=== PATIENT | male | born 1965 | race Caucasian/White ===

== ENCOUNTER 2022-02-18 10:24 | Outpatient (RCR) | payer OTHER, SELFPAY ==
[2022-02-18] MEDS: SODIUM CHLORIDE 0.9 % (FLUSH) 10 ML SYRINGE IVF (11:05)
[2022-02-18 11:15] LABS: Creatinine* 0.9 mg/dL (0.5-1.5); Est. Creatinine Clearance* 86.56; Estimated Glomerular Filt Rate 99 ml/min
== END 2022-08-17 23:59 | disposition home or self-care (01) ==
LOC: CCIC 10:24
PROVIDERS: PCP Family Medicine; Referring Provider Family Medicine; Visit Provider Clinical Nurse Specialist
DX: Z45.2 Encounter for adjustment and management of vascular access device (principal)
CPT/HCPCS: 36415; 82565; 99211

== ENCOUNTER 2024-12-27 12:00 | Emergency (ER) | payer BC, SELFPAY ==
--- OUTSIDE RECORDS SUMMARY | 2024-11-12 08:45 | XMS_ITS | Encounter Summary ---
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 [address] [place] [phone] Phone: tel: fax: [facility] Referral ID Status Reason Start Date Expiration Date Visits Re quested Visits Authorized [id number] Closed 10/26/2024 01/19/2026 15 15 Encounter Details Date Type Department Care Team (Latest Contact Info) Description 11/12/2024 8:45 AM CDT - 11/12/2024 11:59 PM CDT Hospital Encounter Department of Radiation Oncology in [address] [phone] Gio Kiran M.D. 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 07/18/2021 levothyroxine 50 mcg tablet Take 50 mcg by mouth daily. 08/06/2024 pregabalin (LYRICA) 50 mg capsule Take 100 mg by mouth 2 (two) times a day. 02/27/2022 dexAMETHasone (DECADRON) 4 mg tablet Take 8 mg by mouth. Takes two in the morning for the first three days after chemo 01/31/2022 fentaNYL (DURAGESIC) 50 mcg/hr patch Place 1 patch on the skin every third day. 02/06/2022 lisinopriL (PRINIVIL,ZESTRI L) 10 mg tablet Take 10 mg by mouth daily. 07/18/2021 naloxone (NARCAN) 4 mg/actuation nasal spray Administer 1 spray (4 mg total) into one nostril as needed for reversal. Use 1 spray in 1 nostril. Repeat with second device in other nostril after 2-3 minutes if no or minimal response. 2 each 02/18/2022 OLANZapine (ZyPREXA) 5 mg tablet Take 1 tablet (5 mg) by mouth once daily in the evening for 4 days. Start taking the evening of chemotherapy and continue for 3 days after. 01/31/2022 ondansetron (ZOFRAN) 8 mg tablet Take 8 mg by mouth every 8 (eight) hours as needed. 01/31/2022 oxyCODONE (ROXICODONE) 10 mg IR tablet Take 20 mg by mouth every 6 (six) hours as needed. 02/07/2022 prochlorperazine (COMPAZINE) 10 mg tablet Take 10 mg by mouth every 6 (six) hours as needed. 01/31/2022 SUMAtriptan (IMITREX) 25 mg tablet Take by mouth as needed. 03/28/2021 documented as of this encounter Plan of Treatment Upcoming Encounters Date Type Department Care Team (Late st Contact Info) Description 12/28/2024 10:30 AM CDT Appointment Department of Radiation Oncology in [address] [phone] Gio Kiran M.D. [address] [place] [address] 12/29/2024 10:30 AM CDT Appointment Department of Radiation Oncology in [place], [place] [address] [place] [address] Gio Kiran M.D. [address] [place] [address] 12/30/2024 10:15 AM CDT Appointment Department of Radiation Oncology in [place], [place] [address] [place] [phone] Gio Kiran M.D. [facility] [place] [address] 12/30/2024 10:30 AM CDT Appointment Department of Radiation Oncology in [place], [place] [address] [place] [address] Gio Kiran M.D. [address] [place] [address] 12/31/2024 10:30 AM CDT Appointment Department of Radiation Oncology in [address] [address] Gio Kiran M.D. [address] [place] [address] 01/03/2025 10:15 AM CDT Appointment Department of Radiation Oncology in [place], [place] [address] [place] [address] Gio Kiran M.D. [address] [place] [address] 01/04/2025 10:15 AM CDT Appointment Department of Radiation Oncology in [address] [address] Goi Kiran M.D. [facility] [place] [address] 01/05/2025 10:15 AM CDT Appointment Department of Radiation Oncology in [address] [address] Gio Kiran M.D. [address] [place] [phone] 02/28/2025 1:00 PM ELECTRIC LIFT TRUCK DRIVER Appointment Department of Radiation Oncology in [address] [address] Gio Kiran M.D. [address] [place] [phone] documented as of this encounter Visit Diagnoses Not on filedocumented in this encounter
--- OUTSIDE RECORDS SUMMARY | 2024-11-15 08:20 | XMS_ITS | Encounter Summary ---
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 [address] [place] [phone] Phone: tel: fax: [facility] Referral ID Status Reason Start Date Expiration Date Visits Re quested Visits Authorized [id number] Closed 10/26/2024 01/19/2026 15 15 Encounter Details Date Type Department Care Team (Latest Contact Info) Description 11/15/2024 8:20 AM CDT - 11/15/2024 11:59 PM CDT Hospital Encounter Department of Radiation Oncology in [address] [phone] Gio Kiran M.D. 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 [address] [place] [address] 12/29/2024 10:30 AM CDT Appointment Department of Radiation Oncology in [place], [place] [address] [place] [address] Gio Kiran M.D. [address] [place] [address] 12/30/2024 10:15 AM CDT Appointment Department of Radiation Oncology in [place], [place] [address] [place] [phone] Gio Kiran M.D. [facility] [place] [address] 12/30/2024 10:30 AM CDT Appointment Department of Radiation Oncology in [place], [place] [address] [place] [address] Gio Kiran M.D. [address] [place] [address] 12/31/2024 10:30 AM CDT Appointment Department of Radiation Oncology in [address] [address] Gio Kiran M.D. [address] [place] [address] 01/03/2025 10:15 AM CDT Appointment Department of Radiation Oncology in [place], [place] [address] [place] [address] Gio Kiran M.D. [address] [place] [address] 01/04/2025 10:15 AM CDT Appointment Department of Radiation Oncology in [address] [address] Gio Kiran M.D. [facility] [place] [address] 01/05/2025 10:15 AM CDT Appointment Department of Radiation Oncology in [address] [address] Gio Kiran M.D. [address] [place] [phone] 02/28/2025 1:00 PM CENTER MEDICAL AND LAB DIRECTOR Appointment Department of Radiation Oncology in [address] [address] Gio Kiran M.D. [address] [place] [phone] documented as of this encounter Visit Diagnoses Not on filedocumented in this encounter
--- OUTSIDE RECORDS SUMMARY | 2024-11-16 08:25 | XMS_ITS | Encounter Summary ---
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 [address] [place] [phone] Phone: tel: fax: [facility] Referral ID Status Reason Start Date Expiration Date Visits Re quested Visits Authorized [id number] Closed 10/26/2024 01/19/2026 15 15 Encounter Details Date Type Department Care Team (Latest Contact Info) Description 11/16/2024 8:25 AM CDT - 11/16/2024 11:59 PM CDT Hospital Encounter Department of Radiation Oncology in [address] [phone] Gio Kiran M.D. 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 [address] [place] [address] 12/29/2024 10:30 AM CDT Appointment Department of Radiation Oncology in [place], [place] [address] [place] [address] Gio Kiran M.D. [address] [place] [address] 12/30/2024 10:15 AM CDT Appointment Department of Radiation Oncology in [place], [place] [address] [place] [phone] Gio Kiran M.D. [facility] [place] [address] 12/30/2024 10:30 AM CDT Appointment Department of Radiation Oncology in [place], [place] [address] [place] [address] Gio Kiran M.D. [address] [place] [address] 12/31/2024 10:30 AM CDT Appointment Department of Radiation Oncology in [address] [address] Gio Kiran M.D. [address] [place] [address] 01/03/2025 10:15 AM CDT Appointment Department of Radiation Oncology in [place], [place] [address] [place] [address] Gio Kiran M.D. [address] [place] [address] 01/04/2025 10:15 AM CDT Appointment Department of Radiation Oncology in [address] [address] Gio Kiran M.D. [facility] [place] [address] 01/05/2025 10:15 AM CDT Appointment Department of Radiation Oncology in [address] [address] Gio Kiran M.D. [address] [place] [phone] 02/28/2025 1:00 PM THEATRE MANAGER Appointment Department of Radiation Oncology in [address] [address] Gio Kiran M.D. [address] [place] [phone] documented as of this encounter Visit Diagnoses Not on filedocumented in this encounter
--- OUTSIDE RECORDS SUMMARY | 2024-11-17 08:03 | XMS_ITS | Encounter Summary ---
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 [address] [place] [address] Phone: tel: fax: [facility] Region Referral ID Status Reason Start Date Expiration Date V isits Requested Visits Authorized [id number] Authorized 10/14/2024 01/14/2026 10 10 Encounter Details Date Type Department Care Team (Latest Contact Info) Description 11/17/2024 8:03 AM CDT - 11/23/2024 9:14 PM CDT Hospital Encounter Department of Radiation Oncology in [place], [place] [address] [place] [phone] Leif Lozada M.D. 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 03/28/2021 documented as of this encounter Progress Notes * Leif Lozada M.D. - 11/17/2024 8:45 AM CDT SUBJECTIVE REASON FOR VISIT Evaluation for side effects while receiving radiation treatment for 1. 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 ([id number]) HISTORY OF PRESENT ILLNESS Nick Ferguson is a 59 y.o. 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 He is receiving re-irradiation to his left upper lung. Treatment Course: [id number] Plan ID Fractions Dose / Fraction (cGy) Dose Treated (cGy) Dose Planned (cGy) First Treatment Last Treatment Elapsed Days [id number] 400 5200 6000 11/01/2024 11/17/2024 16 Course Summary 11/01/2024 11/17/2024 16 The patient was seen and examined today with Dr. Lozada. The patient reports to be feeling well overall. He denies changes to breathing or cough. He denies chest discomfort or pain with swallowing. He denies changes to his pain in the left axilla. PATIENT REPORTED SYMPTOM SCREEN FATIGUE (Scale: 0 = no fatigue; 10 = worst fatigue you can imagine): 3 PAIN (Scale: 0 = no pain; 10 = worst pain you can imagine): 5-left axillary pain OVERALL QUALITY OF LIFE (Scale: 0 = as bad as can be; 10 = as good as can be): 8 OBJECTIVE BP 119/76 (BP Location: Right arm, Patient Position: Sitting, Cuff Size: Regular) Pulse 71 Temp36.4 ??C (Temporal) Wt 77.8 kg PHYSICAL EXAM General: Alert and oriented in no apparent distress. ASSESSMENT / PLAN #1 Limited stage/stage IIIA (cT4, cN0, cM0) left apical small cell lung cancer with T1/T2 neural foramen invasion #2 Concurrent twice daily chemoradiotherapy initiated with cycle 2 of cisplatin and etoposide; completed March 21, 2022 #3 Biopsy-proven recurrent disease in the left upper lung noted September 2023; re- initiated chemo/immunotherapy #4 Progressive disease noted March 2024, switch in systemic therapy #5 Continued progression through 2 additional lines of systemic therapy March 2024 - September 2024 #6 Radiation to left upper lung initiated on November 01, 2024; anticipated completion on November 19, 2024 The patient is tolerating radiation treatment well overall with no acute side effects. Dr. Lozadawas in for any questions or concerns. He will continue with radiation treatment as planned. He can contact our care team with any questions or concerns. Toxicities reviewed with Dr. Lozada. FOLLOW-UP We will plan for follow up with CT chest with IV contrast and see Dr. Kiran in 3 months. Signed by: Renetta Watters R.N. 11/17/2024 8:35 AM CDT I saw and evaluated the patient and participated in the leonardo portions of the service. I reviewed thedocumentation of Renetta Watters R.N. and agree with the findings and plan. The patient appears well on exam. He is tolerating treatment well without apparent side effects. We discussed the signs andsymptoms of radiation pneumonitis for which he is at risk from 6 weeks from now until 6 months fromnow. The patient agreed to contact us if he experiences any of these. He will finish treatment as planned on Friday. He will follow up with Dr. Kiran in 3 months. Our team is available to him at any time in the interim with issues or concerns. He verbalized satisfaction with this plan. Signed by: Leif Lozada M.D. 11/23/2024 9:13 PM CDT [facility] [address] [place] [address] documented in this encounter Miscellaneous Notes * Addendum Note - Mily Stein - 11/17/2024 8:45 AM CDTEncounter addended by: Mily Stein on: 11/24/2024 7:09 AM Actions taken: Letter saved documented in this encounter Plan of Treatment Upcoming Encounters Date Type Department Care Team (Late st Contact Info) Description 12/28/2024 10:30 AM CDT Appointment Department of Radiation Oncology in [address] [address] Gio Kiran M.D. [address] [place] [phone] 12/29/2024 10:30 AM CDT Appointment Department of Radiation Oncology in [address] [address] Gio Kiran M.D. [address] [place] [phone] 12/30/2024 10:15 AM CDT Appointment Department of Radiation Oncology in [address] [address] Gio Kiran M.D. [address] [place] [phone] 12/30/2024 10:30 AM CDT Appointment Department of Radiation Oncology in [address] [address] Gio Kiran M.D. [facility] [place] [address] 12/31/2024 10:30 AM CDT Appointment Department of Radiation Oncology in [address] [address] Gio Kiran M.D. [facility] [place] [address] 01/03/2025 10:15 AM CDT Appointment Department of Radiation Oncology in [address] [address] Gio Kiran M.D. [address] [place] [phone] 01/04/2025 10:15 AM CDT Appointment Department of Radiation Oncology in [address] [address] Gio Kiran M.D. [address] [place] [phone] 01/05/2025 10:15 AM CDT Appointment Department of Radiation Oncology in [address] [address] Gio Kiran M.D. [address] [place] [phone] 02/28/2025 1:00 PM REAL ESTATE OPERATIONS MANAGER Appointment Department of Radiation Oncology in [address] [address] Gio Kiran M.D. 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
--- OUTSIDE RECORDS SUMMARY | 2024-11-17 08:03 | XMS_ITS | Encounter Summary ---
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 [address] [place] [phone] Phone: tel: fax: [facility] Referral ID Status Reason Start Date Expiration Date Visits Re quested Visits Authorized [id number] Closed 10/26/2024 01/19/2026 15 15 Encounter Details Date Type Department Care Team (Latest Contact Info) Description 11/17/2024 8:03 AM CDT - 11/17/2024 11:59 PM CDT Hospital Encounter Department of Radiation Oncology in [address] [phone] Gio Kiran M.D. [address] [place] [phone] Discharge Disposition: Home or Self Care Social History Tobacco Use Types Packs/Day Years Used Date Smoking Tobacco: Former Cigarettes 1 40 Q uit: 09/2023 Smokeless Tobacco: Never Alcohol Use Standard Drinks/Week Comments Yes 6 (1 standard drink = 0.6 oz pur e alcohol) Sex and Gender Information Value Date Recorded Sex Assigned at Not on file Legal Sex Male 11:53 AM CHART WRITER Gender Identity Not on file Sexual Orientation [...] CDT Appointment Department of Radiation Oncology in [address] [phone] Gio Kiran M.D. [address] [place] [address] 12/29/2024 10:30 AM CDT Appointment Department of Radiation Oncology in [place], [place] [address] [place] [address] Gio Kiran M.D. [address] [place] [address] 12/30/2024 10:15 AM CDT Appointment Department of Radiation Oncology in [place], [place] [address] [place] [phone] Gio Kiran M.D. [facility] [place] [address] 12/30/2024 10:30 AM CDT Appointment Department of Radiation Oncology in [place], [place] [address] [place] [address] Gio Kiran M.D. [address] [place] [address] 12/31/2024 10:30 AM CDT Appointment Department of Radiation Oncology in [address] [address] Gio Kiran M.D. [address] [place] [address] 01/03/2025 10:15 AM CDT Appointment Department of Radiation Oncology in [place], [place] [address] [place] [address] Gio Kiran M.D. [address] [place] [address] 01/04/2025 10:15 AM CDT Appointment Department of Radiation Oncology in [address] [address] Gio Kiran M.D. [facility] [place] [address] 01/05/2025 10:15 AM CDT Appointment Department of Radiation Oncology in [address] [address] Gio Kiran M.D. [address] [place] [phone] 02/28/2025 1:00 PM CHART WRITER Appointment Department of Radiation Oncology in [address] [address] Gio Kiran M.D. [address] [place] [phone] documented as of this encounter Visit Diagnoses Not on filedocumented in this encounter
--- OUTSIDE RECORDS SUMMARY | 2024-11-18 08:07 | XMS_ITS | Encounter Summary ---
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 [address] [place] [phone] Phone: tel: fax: [facility] Referral ID Status Reason Start Date Expiration Date Visits Re quested Visits Authorized [id number] Closed 10/26/2024 01/19/2026 15 15 Encounter Details Date Type Department Care Team (Latest Contact Info) Description 11/18/2024 8:07 AM CDT - 11/18/2024 11:59 PM CDT Hospital Encounter Department of Radiation Oncology in [address] [phone] Gio Kiran M.D. [address] [place] [phone] Discharge Disposition: Home or Self Care Social History Tobacco Use Types Packs/Day Years Used Date Smoking Tobacco: Former Cigarettes 1 40 Q uit: 09/2023 Smokeless Tobacco: Never Alcohol Use Standard Drinks/Week Comments Yes 6 (1 standard drink = 0.6 oz pur e alcohol) Sex and Gender Information Value Date Recorded Sex Assigned at Not on file Legal Sex Male 11:53 AM INSURANCE HEALTHCARE REPRESENTATIVE Gender Identity Not on file Sexual Orientation [...] CDT Appointment Department of Radiation Oncology in [address] [phone] Gio Kiran M.D. [address] [place] [address] 12/29/2024 10:30 AM CDT Appointment Department of Radiation Oncology in [place], [place] [address] [place] [address] Gio Kiran M.D. [address] [place] [address] 12/30/2024 10:15 AM CDT Appointment Department of Radiation Oncology in [place], [place] [address] [place] [phone] Gio Kiran M.D. [facility] [place] [address] 12/30/2024 10:30 AM CDT Appointment Department of Radiation Oncology in [place], [place] [address] [place] [address] Gio Kiran M.D. [address] [place] [address] 12/31/2024 10:30 AM CDT Appointment Department of Radiation Oncology in [address] [phone] Gio Kiran M.D. [address] [place] [address] 01/03/2025 10:15 AM CDT Appointment Department of Radiation Oncology in [place], [place] [address] [place] [address] Gio Kiran M.D. [address] [place] [address] 01/04/2025 10:15 AM CDT Appointment Department of Radiation Oncology in [address] [phone] Gio Kiran M.D. [facility] [place] [address] 01/05/2025 10:15 AM CDT Appointment Department of Radiation Oncology in [address] [phone] Gio Kiran M.D. [address] [place] [phone] 02/28/2025 1:00 PM INSURANCE HEALTHCARE REPRESENTATIVE Appointment Department of Radiation Oncology in [address] [address] Gio Kiran M.D. [address] [place] [phone] documented as of this encounter Visit Diagnoses Not on filedocumented in this encounter
--- OUTSIDE RECORDS SUMMARY | 2024-11-19 08:05 | XMS_ITS | Encounter Summary ---
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 [address] [place] [phone] Phone: tel: fax: [facility] Referral ID Status Reason Start Date Expiration Date Visits Re quested Visits Authorized [id number] Closed 10/26/2024 01/19/2026 15 15 Encounter Details Date Type Department Care Team (Latest Contact Info) Description 11/19/2024 8:05 AM CDT - 11/19/2024 11:59 PM CDT Hospital Encounter Department of Radiation Oncology in [address] [phone] Gio Kiran M.D. 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 [address] [place] [address] 12/29/2024 10:30 AM CDT Appointment Department of Radiation Oncology in [place], [place] [address] [place] [address] Gio Kiran M.D. [address] [place] [address] 12/30/2024 10:15 AM CDT Appointment Department of Radiation Oncology in [place], [place] [address] [place] [phone] Gio Kiran M.D. [facility] [place] [address] 12/30/2024 10:30 AM CDT Appointment Department of Radiation Oncology in [place], [place] [address] [place] [address] Gio Kiran M.D. [address] [place] [address] 12/31/2024 10:30 AM CDT Appointment Department of Radiation Oncology in [address] [phone] Gio Kiran M.D. [address] [place] [address] 01/03/2025 10:15 AM CDT Appointment Department of Radiation Oncology in [place], [place] [address] [place] [address] Gio Kiran M.D. [address] [place] [address] 01/04/2025 10:15 AM CDT Appointment Department of Radiation Oncology in [address] [phone] Gio Kiran M.D. [facility] [place] [address] 01/05/2025 10:15 AM CDT Appointment Department of Radiation Oncology in [address] [phone] Gio Kiran M.D. 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 [address] [place] [phone] documented as of this encounter Visit Diagnoses Not on filedocumented in this encounter
--- OUTSIDE RECORDS SUMMARY | 2024-12-15 12:31 | XMS_ITS | Encounter Summary ---
Author Organization [facility] Address [address] [place] [address] Care Team Providers Care Mental Health Associate Name Role Phone Unavailable Primary Care Provider Unavailabl e Reason for Referral * Outpatient (Routine) - Closed Specialty Diagnoses / Procedures Referred By Contac t Referred To Contact Radiation Oncology Marleen Snider APRN, C.N.P., D.N.P. [address] [place] [address] Phone: tel: fax: Gio Kiran M.D. [address] [place] [phone] Phone: tel: fax: Referral ID Status Reason Start Date Expiration Date Visits Re quested Visits Authorized [id number] Closed 12/13/2024 06/14/2026 1 1 Scheduling Instructions Coordinate with SIM Reason for Visit * Outpatient (Routine) - Closed Specialty Diagnoses / Procedures Referred By Contac t Referred To Contact Radiation Oncology Marleen Snider APRN, C.N.P., D.N.P. [address] [place] [address] Phone: tel: fax: Gio Kiran M.D. [address] [place] [phone] Phone: tel: fax: Referral ID Status Reason Start Date Expiration Date Visits Re quested Visits Authorized [id number] Closed 12/13/2024 06/14/2026 1 1 Encounter Details Date Type Department Care Team (Latest Contact Info) Description 12/15/2024 12:31 PM CDT - 12/17/2024 4:03 PM CDT Hospital Encounter Department of Radiation Oncology in [place], [place] [address] [place] [phone] Gio Kiran M.D. 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 10 tablet 12/17/2024 fentaNYL (DURAGESIC) 50 mcg/hr patch Place 1 [...] as of this encounter Progress Notes * [place] M.D. - 12/15/2024 1:00 PM CDT SUBJECTIVE RADIATION ONCOLOGY FOLLOW UP VISIT SUPERVISING PHYSICIAN Gio Kiran M.D. Requesting Provider Marleen Snider APRN, C.N.P., D.N.P. DIAGNOSIS Metastatic small cell lung cancer with resected large left sided brain mets Cancer Staging 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 (HCC) Staging form: Lung, AJCC 8th Edition - Clinical stage from 01/24/2022: Stage IIIA (cT4, cN0, cM0) Reason for Consult Consultation regarding the role of radiotherapy for treatment of large brain mets post resection History of Present Illness Nick Ferguson is a 59 y.o. from [place], [place] with above diagnosis who presents to the Department of Radiation Oncology for discussion regarding the role of radiotherapy. The oncologic history is as follows: Oncology History 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 (HCC) 12/31/2021 Other The patient presented to Urgent Care at [facility] with left shoulder and arm pain. X- ray of the neck was indeterminate, per patient report. MRI was ordered. 01/07/2022 Critical Imaging MRI of the cervical spine demonstrated a left pulmonary apex mass extending extrapleural to the left T1-2 foramen, toward the postganglionic left T2 and T3 nerve roots, partially visualized. Most consistent with Pancoast tumor, to be further evaluated with chest CT. Borderline prominent, but withinnormal limits, right level 3 cervical lymph node. Mild C3-4 spondylotic ridging and bulging, central stenosis and ventral cord impingement without cord compression. Marked chronic right C5-6 foraminal stenosis with C6 nerve root impingement. Milder spondylosis other levels without neural compression. 01/11/2022 Other The patient presented to Dr. Will Gaitan with a chief complaint of severe pain in his left arm for the past 3 weeks, since 12/19/21. The patient reported shooting pain down his left arm with lifting. He denied trauma. 01/11/[address] chest demonstrated a large left apical soft tissue mass measuring 4.3 x 6.2 x 9.5 cm with lobular margins and extending to the posterior medial/superior pleura. No associated osseous destruction. Mildly enlarged mediastinal lymph nodes in the aortopulmonary window measuring up to 1 cm. Mildly prominent left hilar lymph nodes measuring up to 1 cm. Mildly prominent supraclavicular lymph nodes and left axillary lymph nodes were suspected. Left adrenal gland mass measuring 1.8 cm, likely metastatic. 01/18/2022 Critical Imaging MRI brain demonstrated no evidence of intracranial metastatic disease. 01/18/2022 Critical Imaging PET/CT scan demonstrated an FDG avid lesion with areas of in situ mineralization and necrosis in the left lung apex invading the adjacent pleura/chest wall and left T1-T2 neural foramen measuring approximately 7.8 x 4.8 x 10.0 cm, SUV max 19.6. Mildly FDG avid left interlobar station 11L lymph node, SUV max 3.0. Mildly FDG avid left adrenal gland nodule measuring up to 1.8 cm, SUV max 2.7. 01/24/2022 Biopsy/Pathology CT-guided biopsy of the left lung mass was performed. Cytology: A) LEFT LUNG, UPPER LOBE MASS, CT-GUIDED BIOPSY WITH TOUCH IMPRINTS: Small cell carcinoma 01/31/2022 Other Medical Oncology consultation with Dr. 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 Plan to start radiation treatment with cycle #2 chemotherapy.The patient was prescribed a fentanyl 50 mcg patch and oxycodone 10 mg every 4-6 hours for breakthrough pain. 02/04/2022 - 04/12/2022 Chemotherapy 02/04/22: C1 cisplatin and etoposide 02/27/22: C2 cisplatin and etoposide 03/20/22: C3 cisplatin and etoposide 04/10/22: C4 cisplatin and etoposide 02/27/2022 - 03/21/2022 Radiation Therapy 4500 cGy in 30 fractions delivered twice daily. Radiation Therapy Treatment Details (02/27/2022 - 03/21/2022) Site: Left Lung Technique: IMRT Goal: Curative Planned Treatment Start Date: 02/27/2022 04/19/2022 Critical Imaging MR Brain Impression: 1. No intracranial metastasis. PET-CT FINDINGS: Partially calcified left upper lobe pulmonary mass has decreased from 7.4 x 5.4 cm (SUVmax 14.6) to 4.5 x 2.4 cm (SUVmax 4.2). Mild diffuse esophagitis. All other FDG activity is normal. Left hilar lymphadenopathy has resolved. 11/01/2022 Critical Imaging MR Brain Impression: 1. Stable focus of extra-axial nodular enhancement at the left frontal operculum, favor meningioma. 2. No new foci of contrast enhancement to suggest acute intracranial metastatic disease. PET-CT Impression: Increasing FDG avidity in the mineralized left upper lobe mass along the posterior pleura. While this could represent evolving posttreatment radiation change, the increasing metabolic activity is somewhat atypical and raises suspicious for progression of disease. 09/19/2023 Critical Imaging PET-CT Impression: 1. Increasing size and FDG avidity of a partially calcified left upper lobe mass, suspicious for disease recurrence. No findings to suggest FDG avid metastatic disease. 2. Similar FDG avid polyp in the right maxillary sinus. This is nonspecific but may be inflammatoryin etiology. ENT could further evaluate. MR Brain Impression: 1. Presumed left anterior sylvian meningioma is similar in size compared to prior exams accounting for slight differences in technique. 2. No evidence for acute intracranial process or significant change elsewhere. 10/06/2023 Biopsy/Pathology A) LUNG, LEFT UPPER LOBE, POSTERIOR APEX MASS, CT-GUIDED NEEDLE CORE BIOPSY WITH TOUCH IMPRINTS: 1. Small cell carcinoma, clinically recurrent/residual 2. Background tissue with extensive necrosis, fibrosis, and patchy calcification 3. See comment Comment: The tumor is morphologically similar to the patient's prior small cell carcinoma ([id number] reviewed for morphologic comparison); however, morphologic comparison is somewhat limited by crush artifact and the limited number of cells present. Immunohistochemical results support the diagnosis of small cell carcinoma, with the tumor cells showing diffuse expression with synaptophysin and INSM1 as well as possessing a high Ki-67 proliferation index (proximately 95%). 10/14/2023 - 12/16/2023 Chemotherapy 10/14/2023: Cycle #1 Carboplatin plus Irinotecan 11/04/2023: Cycle #2 Carboplatin plus Irinotecan 11/25/2023: Cycle #3 Carboplatin plus Irinotecan 12/16/2023: Cycle #4 Carboplatin plus Irinotecan 01/06/2024 - 04/12/2024 Chemotherapy Maintenance Atezolizumab (Tecentriq) at every 3 weeks schedule commenced. 01/09/[address] Chest, Abdomen, Pelvis Impression: 1. Stable partially calcified subpleural mass within the posterior right lung apex. Otherwise no evidence of metastatic disease within the chest, abdomen, and pelvis. MR Brain Impression: 1. No evidence of intracranial metastatic disease. 2. Stable enhancing extra-axial lesion along the left sylvian fissure, most consistent with a meningioma. 03/30/2024 Critical Imaging MR Brain Impression: 1. No evidence of intracranial metastatic disease or other acute intracranial abnormality. 2. Stable to slightly increased size of the presumed meningioma along the left convexity. CT Chest, Abdomen, Pelvis Impression: 1. Increased soft tissue nodular thickening along the inferior aspect of the subpleural partially calcified mass left lung apex posteriorly at site of previous positive biopsy. 2. Findings most consistent with tumor progression. 3. No other new findings. 04/20/2024 - 06/29/2024 Chemotherapy Lurbinectedin with growth factor support x 4 cycles, then discontinued due to disease progression. 07/06/2024 Critical Imaging MR Brain Impression: 1. Dural based mass along the left sylvian fissure, likely incidental meningioma, not significantlychanged. 2. Punctate areas of enhancement within the left parietal lobe and left frontal lobe which may be artifactual (for example series 19, images 83, 86, 116). Subtle metastases cannot be entirely excluded. Recommend attention on follow-up. 3. Otherwise, no evidence of metastatic disease. CT Chest, Abdomen, Pelvis Impression: 1. Interval increase in size of a soft tissue mass associated with pleural calcification and thickening in the posterior aspect of the left upper lobe. Findings compatible with disease progression. The mass now measures 2.2 x 2.5 cm, previously when remeasured at similar positions 1.6 x 1.3 cm. 2. Moderate emphysema with moderate bronchial wall thickening. 3. Interval increase in size of a station 10L left hilar lymph node measuring 0.6 cm short axis, previously 0.4 cm. 4. No significant change in the left adrenal gland nodule. 07/12/2024 Other Medical Oncology appointment with Dr. Bronwing. He recommended discontinuation of Lubrinectdin due todisease progression. Plan to treat with tarlatamab as third line therapy. Will arrange follow-up with Dr. Johnson or Dr. Ordonez at [facility] to facilitate this treatment. Referral to Radiation Oncology to see if there is any possibility for SBRT. 08/17/2024 - 09/2024 Chemotherapy Tarlatamab - discontinued September 2024 due to progression 09/16/2024 Critical Imaging MR brain Impression 1. A 10.5 x 17.5 x 12.4 mm enhancing dural-based extra-axial mass over the left sylvian fissure, measured 8.8 x 9.8 x 9 mm on 07/06/2024 and 6.1 x 9.5 x 7.7 mm on 07/26/2022. The differential diagnosis includes meningioma. Dural metastasis is less favored given the interval slight increase in size over time and lack of new lesions. 2. The previously noted punctate foci of enhancement involving the left frontal lobe and the left parietal lobe described on the most recent prior brain MRI 07/06/2024 are no longer seen. 3. No new areas of abnormal intracranial enhancement. 4. Mild diffuse cerebral parenchymal volume loss. Presumed chronic hypertensive/microvascular ischemic white matter changes. CT CAP Impression 1. Increase in left upper lobe pulmonary mass indicating progression of malignancy now measuring 5.5 x 4.4 cm, previously 2.2 x 2.5 cm. Extensive pleural involvement again noted. 2. Stable small left hilar lymph node. 3. Stable left adrenal nodule. 4. No evidence for new distant metastatic disease in the chest, abdomen or pelvis. 09/28/2024 - 11/29/2024 Chemotherapy Topotecan Only received 1 total cycle 10/07/2024 Critical Imaging PET/CT FINDINGS: Increased size and FDG uptake within the left upper lobe mass with heterogeneous internal mineralization measuring 5.4 x 3.5 x 5.7 cm (SUV max 13.7, previously 4.1 x 1.7 x 5.1 cm with SUV max 12.7) and development of new areas of FDG avid pleural thickening elsewhere in the left hemithorax suspicious for pleural metastasis, for example anteriorly near the level of the main pulmonary artery (SUV max 7.3) suggests progressive disease. Mild diffuse esophagitis. Decreased FDG uptake associated with a right maxillary sinus polyp (SUV max 2.8, previously 5.0). 11/01/2024 - 11/19/2024 Radiation Therapy Radiation Therapy Treatment Details (11/01/2024 - 11/19/2024) Site: Left Lung Technique: IMRT Goal: Palliative Planned Treatment Start Date: 11/01/2024 11/29/2024 Critical Imaging MR brain impression: 1. Significantly increased size of the extra-axial dural based mass cyst centered over the left sylvian fissure with new adjacent moderate vasogenic edema which contributes to mass effect including 6mm rightward midline shift. 2. No hydrocephalus. 3. Equivocal T2 FLAIR sulcal and on suppression is favored reflect vascularity within the effaced sulci. Subarachnoid hemorrhage can have a similar appearance but is considered less likely. Consider noncontrast head CT to exclude recent subarachnoid hemorrhage. 11/30/[address] head Impression 1. Allowing for differences in modality, unchanged left extra-axial lesion with associated vasogenic edema. 2. Small foci of hyperdensity along the margins of the lesion appear to represent intratumoral hemorrhage versus less likely subarachnoid hemorrhage. 12/02/2024 Surgery and Procedures Craniotomy for resection of left frontal brain lesion with Dr. Laurent Olmos Final Diagnosis A) BRAIN, LEFT FRONTAL LOBE TUMOR, RESECTION: 1. Metastatic malignancy, consistent with small cell carcinoma of lung 2. Minute meningioma (ROLL SETTER WHO grade 1), incidental 12/02/2024 Critical Imaging MR brain Impression 1. Interval left-sided frontoparietal/pterional craniotomy for debulking/resection of the previously noted dural-based mass lesion overlying the left frontal operculum and anterior left sylvian fissure. 2. There is irregular smooth and nodular/wispy enhancement along the deep margins of the resection cavity, some of which could be postoperative though residual tumor is possible. Attention on follow-up. 3. Stable extensive vasogenic edema in the left frontal lobe, left frontal/temporal junction and left temporal stem and left temporal lobe. 4. Overall mass effect has improved, with a 4 mm left to right midline shift, previously 6 mm. 12/21/2024 - Radiation Therapy Radiation Therapy Treatment Details (Noted on 12/13/2024) Site: Left Brain Technique: No technique specified Goal: Curative Planned Treatment Start Date: 12/21/2024 Interval History Nick Ferguson confirms the above summary. Recovering fairly well from the surgery on 12/02. He reports his aphasia is now recovering since undergoing tumor resection from the brain. He continues to befairly functional and denies any focal neurological deficits at this time. Patient denies any chest pain, discomfort, cough, dyspnea, hemoptysis, weight loss or fever. Radiotherapy History Prior radiation therapy: YES (2 prior courses of radiation therapy to the left lung SCLC) Other cancer: NO Lupus, scleroderma, collagen vascular disease: NO Implanted electronic devices: NO Pertinent Medical/Surgical History [Medical History] [Medical History] Past Medical History Diagnosis Date Headache Cluster Hypertension NOS 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 (HCC) Polyp Colon [Surgical History] [Surgical History] Past Surgical History No past surgical history on file. Family History [Family History] [Family History] Problem Relation Name Age of Onset Cancer Mother Social History Nick Ferguson lives in [place], [place]. Retired. Active at home with gardening and busy with grand kids. Tobacco Use Smoking Status Former Current packs/day: 0.00 Average packs/day: 1 pack/day for 40.0 years (40.0 ttl pk-yrs) Types: Cigarettes Quit date: 09/2023 Years since quittin.2 Smokeless Tobacco Never Social History Substance and Sexual Activity Alcohol Use Yes Alcohol/week: 6.0 - 12.0 standard drinks of alcohol Types: 6 - 12 Cans of beer per week OBJECTIVE There were no vitals taken for this visit. Physical Exam ECOG score: 1 - Restricted in physically strenuous activity but ambulatory and able to carry out work of a light or sedentary nature General: A well-appearing 59 y.o. male sitting comfortably, does not appear to be in acute distress. Face: Large left jehovah's witness scar visible, nicely healing Resp: Breathing comfortably on room air. No extra effort for breathing noted. Extremities: Upper extremity range of motion is unrestricted, no appreciable edema. Neuro: Alert and oriented. No apparent gross neurological deficits. Motor power 5/5 in all extremities, sensation appears intact x4 as well. IMAGING *Only MRI reports available, images are not available at this time* 11/29/2024 MR BRAIN W/WO CONTRAST Impression 1. Significantly increased size of the extra-axial dural based mass cyst centered over the left sylvian fissure with new adjacent moderate vasogenic edema which contributes to mass effect including 6mm rightward midline shift. 2. No hydrocephalus. 3. Equivocal T2 FLAIR sulcal and on suppression is favored reflect vascularity within the effaced sulci. Subarachnoid hemorrhage can have a similar appearance but is considered less likely. Consider noncontrast head CT to exclude recent subarachnoid hemorrhage. Narrative FINDINGS: INTRACRANIAL CONTENTS: Interval increase in size of the extra-axial dural based mass centered over the left sylvian fissure measuring 4.6 cm AP x 4.4 cm CC x 3.2 cm TV, previously 1.8 x 1.2 x 1.1 cm on remeasurement with similar technique. The mesial surface of the lesion is microlobulated with central striated enhancement, stippled susceptibility, and patchy restricted diffusion. Greater extent of dural thickening overlying the left cerebral convexity. Interval development of moderate vasogenic edema, which contributes to left hemispheric sulcal effacement, partial effacement of the left lateral and third ventricle, and 6 mm rightward midline shift. Equivocal T2 FLAIR sulcal nonsuppression in the lateral left frontoparietal lobe is favored to reflect sulcal effacement and vasculature. No associated subarachnoid susceptibility on the SWI sequence. No additional mass. No additional finding to suggest acute hemorrhage or abnormal extra axial fluidcollection No restricted diffusion to suggest hyperacute, acute, or early subacute infarction. No additional abnormal brain parenchymal signal. No hydrocephalus. Normal position of the cerebellar tonsils. SELLA: No abnormality accounting for technique OSSEOUS STRUCTURES/SOFT TISSUES: Normal marrow signal. The major intracranial vascular flow voids are maintained. ORBITS: No abnormality accounting for technique. 12/02/2024 MR Brain w/wo Contrast Impression 1. Interval left-sided frontoparietal/pterional craniotomy for debulking/resection of the previously noted dural-based mass lesion overlying the left frontal operculum and anterior left sylvian fissure. 2. There is irregular smooth and nodular/wispy enhancement along the deep margins of the resection cavity, some of which could be postoperative though residual tumor is possible. Attention on follow-up. 3. Stable extensive vasogenic edema in the left frontal lobe, left frontal/temporal junction and left temporal stem and left temporal lobe. 4. Overall mass effect has improved, with a 4 mm left to right midline shift, previously 6 mm. PATHOLOGY 12/02/2024 Surgical Pathology Diagnosis A) BRAIN, LEFT FRONTAL LOBE TUMOR, RESECTION: 1. Metastatic malignancy, consistent with small cell carcinoma of lung 2. Minute meningioma (ROLL SETTER WHO grade 1), incidental ASSESSMENT / PLAN Assessment: 59 y.o. 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 I reviewed the diagnosis, pathology reports, imaging report, treatment history, and with the current clinical scenario indetail and discussed the role and rationale for use of radiotherapy in this specific setting. Nick Ferguson was diagnosed with small-cell lung cancer in the left apex of the lung, Pancoast syndrome atpresentation in 2021 when he presented with left shoulder and arm pain. He was limited stage/stage IIIA cT4 cN0 cM0 with symptomatic left T1/T2 neural foramina invasion. He was treated with cisplatin and etoposide along with 45 Gy b.i.d. radiation therapy completing in March 2022. Prophyl actic cranial irradiation PCI was discussed but he had declined at that time. [address] he was noted to have PET avidity in the left upper lobe mass raising suspicion of recurrent disease. This was eventually biopsy-proven to be local recurrence. He has had received multiple lines of chemotherapy and immunotherapy since then without significant success so far. He was found to have meningioma findings in the left convexity and later on during June 2024 MRI brain showed punctate areas of enhancement in the left side of the brain. His systemic therapy was again changed. He receivedreirradiation during October 2024 to the left lung recurrent disease 60 Gy in 15 fractions. He was found to have episodic confusions and sometimes word-finding difficulties. MRI brain on 11/29 showed a large 4.6 cm left sylvian fissure mass. He underwent resection on 12/02 with pathology consistent with metastatic small-cell lung cancer and a focus of meningioma grade1. He is now coming for discussion about radiation therapy options following surgery. We discussed about hippocampal avoidance whole-brain radiotherapy (WILSON-WBRT) along with memantine and stereotactic radiation therapy (SRT) to the surgical cavity alone. We recommend treating the surgical cavity with a 3-5 fractions SRT regimen to better preserve his neurocognitive and functional status. He will be needing to perform periodic MRI brain for surveillance of other areas of recurrence which are expected to happen down the road and can be addressed with a more focused stereotactic approach. Of note, He was recently [facility] by our colleague Dr. Edgar Benitez had discussed radiation therapy (WBRT and SRT) but patient wanted to pursue this near home in [place]. I reviewed the logistics of radiotherapy as well as risks, benefits, and alternatives. We discussedtreatment planning and potential strategies for minimizing dose to critical structures. We reviewedthe acute and late term radiation side effect including headache, pressure symptoms, increased somno lence, fatigue, irritability, potential risk of radionecrosis, and affect on cognition/memory. I reviewed the general sequence of appointments here in radiation oncology, including simulation, treatment planning, and daily treatment Friday-Friday. Nick Ferguson verbalized understanding of the above discussion and rationale for radiotherapy. Nick Ferguson indicated the desire to proceed with radiation planning and treatment in [place] due to close proximity to home. CT simulation today and plan to start radiation treatments from next week. Questions and concerns were addressed to the best of my ability and with apparent satisfaction. Ourcontact information was provided if any further questions arise. Patient discussed and seen with Gio Kiran M.D. Please see the attestation note for further details. Wyatt Beach M.D. Resident Physician PGY-5 Radiation Oncology Pager [phone] [facility] [address] [place] [address] Cosigned by Gio Kiran M.D. at 12/17/2024 4:02 PM CDT Associated attestation - Gio Kiran M.D. - 12/17/2024 4:02 PM CDT I personally saw Mr. Ferguson and agree with Dr. Beach's note. At the time of consultation we did not have the images but only the reports of his recent brain imaging. Based on the description of 1 large lesion I was thinking we could likely treat this with stereotactic radiation therapy with a fractionated treatment course. I discussed the whole-brain is appropriate and in some situations necessary but often carries more side effects including neurocognitive effects compared to stereotactic radiation. The patient was grossly neurologically intact. They agreed with the plan for treatment and he underwent simulation. We were not able to obtain MRI for treatment planning purposes the same day of the simulation that was scheduled for the next day. Of note, 2 days after the consultation I received a message regarding the treatment planning MRI and reviewed the images. I now have concerns regarding whether or not this can be treated in a fractionated stereotactic manner versus whole-brain radiation therapy. He does appear to have possible leptomeningeal involvement. I will review with other physicians and we will discussed with the patient and perhaps proceed with whole-brain radiation therapy in an expedited fashion next week if necessary. documented in this encounter Plan of Treatment Upcoming Encounters Date Type Department Care Team (Late st Contact Info) Description 12/28/2024 10:30 AM CDT Appointment Department of Radiation Oncology in [address] [address] Gio Kiran M.D. [address] [place] [phone] 12/29/2024 10:30 AM CDT Appointment Department of Radiation Oncology in [address] [address] Gio Kiran M.D. [address] [place] [phone] 12/30/2024 10:15 AM CDT Appointment Department of Radiation Oncology in [address] [address] Gio Kiran M.D. [address] [place] [phone] 12/30/2024 10:30 AM CDT Appointment Department of Radiation Oncology in [address] [address] Gio Kiran M.D. [address] [place] [phone] 12/31/2024 10:30 AM CDT Appointment Department of Radiation Oncology in [address] [phone] Gio Kiran M.D. [address] [place] [phone] 01/03/2025 10:15 AM CDT Appointment Department of Radiation Oncology in [address] [address] Gio Kiran M.D. [address] [place] [phone] 01/04/2025 10:15 AM CDT Appointment Department of Radiation Oncology in [address] [address] Gio Kiran M.D. [address] [place] [phone] 01/05/2025 10:15 AM CDT Appointment Department of Radiation Oncology in [address] [address] Gio Kiran M.D. [address] [place] [phone] 02/28/2025 1:00 PM WINDOW SHADE ESTIMATOR Appointment Department of Radiation Oncology in [address] [address] Gio Kiran M.D. [address] [place] [phone] Scheduled Referrals Name Type Priority Associated Diagnoses Order Schedule Radiation Oncology office visit (clinic) Outpatient Referral Routine Once for 1 Occurrences starting 12/15/2024 until 12/15/2024 documented as of this encounter Visit Diagnoses Diagnosis Secondary Malignant Neoplasm Brain (HCC)- Primary documented in this encounter
--- OUTSIDE RECORDS SUMMARY | 2024-12-15 13:30 | XMS_ITS | Encounter Summary ---
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 [address] [place] [address] Phone: tel: fax: [facility] Region Referral ID Status Reason Start Date Expiration Date V isits Requested Visits Authorized [id number] Authorized 12/15/2024 03/15/2026 2 2 Encounter Details Date Type Department Care Team (Latest Contact Info) Description 12/15/2024 1:30 PM CDT - 12/17/2024 3:36 PM CDT Hospital Encounter Department of Radiation Oncology in [place], [place] [address] [place] [phone] Gio Kiran M.D. 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 Authorized by: Gio Kiran M.D. Simulation was performed under physician supervision based on physician order in preparation for radiation therapy. Physician was immediately available to provide assistance and direction throughout the procedure. Written consent for treatment was completed or confirmed. The patient was appropriately identified and placed in the treatment position using the necessary immobilization to ensure a reproducible treatment position. Reference joel were placed to facilitate marking of isocenter. Area scanned:Head Contrast used for the simulation procedure: None Patient position:head first supine Custom immobilization: SRS mask (2 part mask) and Knee Cushion Motion management: None Bolus: No CT guidance: Following positioning of the patient, a series of slices was obtained to be utilized in treatment planning. CT images were transferred to the Eclipse treatment planning system, after a reference isocenter was determined and marked. Segmentation and treatment planning will take place prior to treatment delivery. Patient set up and imaging was appropriate and completed without incident. Authorizer use:No Cosigned by Gio Kiran M.D. at 12/17/2024 3:36 PM CDT Associated attestation - Gio Kiran M.D. - 12/17/2024 3:36 PM CDT Agree with documentation as below. I was personally available during the simulation. documented in this encounter Plan of Treatment Upcoming Encounters Date Type Department Care Team (Late st Contact Info) Description 12/28/2024 10:30 AM CDT Appointment Department of Radiation Oncology in [address] [address] Gio Kiran M.D. [address] [place] [phone] 12/29/2024 10:30 AM CDT Appointment Department of Radiation Oncology in [address] [address] Gio Kiran M.D. [address] [place] [phone] 12/30/2024 10:15 AM CDT Appointment Department of Radiation Oncology in [address] [address] Gio Kiran M.D. [address] [place] [phone] 12/30/2024 10:30 AM CDT Appointment Department of Radiation Oncology in [address] [address] Gio Kiran M.D. [address] [place] [phone] 12/31/2024 10:30 AM CDT Appointment Department of Radiation Oncology in [address] [address] Gio Kiran M.D. [address] [place] [phone] 01/03/2025 10:15 AM CDT Appointment Department of Radiation Oncology in [place], [place] [address] [place], [place] [address] [address] Gio Kiran M.D. [address] [place] [phone] 01/04/2025 10:15 AM CDT Appointment Department of Radiation Oncology in [address] [address] Gio Kiran M.D. [address] [place] [phone] 01/05/2025 10:15 AM CDT Appointment Department of Radiation Oncology in [address] [address] Gio Kiran M.D. [address] [place] [phone] 02/28/2025 1:00 PM TANDEM OPERATOR Appointment Department of Radiation Oncology in [place], [place] [address] [place] [phone] Gio Kiran M.D. 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 12/17/2024 3:36 PM Initial Rad Onc Treatment Planning CT Simulation Performed by: Gio Kiran M.D. Authorized by: Gio Kiran M.D. Simulation was performed under physician supervision based on physician order in preparation for radiation therapy. Physician was immediately available to provide assistance and direction throughout the procedure. Written consent for treatment was completed or confirmed. The patient was appropriately identified and placed in the treatment position using the necessary immobilization to ensure a reproducible treatment position. Reference joel were placed to facilitate marking of isocenter. Area scanned:Head Contrast used for the simulation procedure: None Patient position:head first supine Custom immobilization: SRS mask (2 part mask) and Knee Cushion Motion management: None Bolus: No CT guidance: Following positioning of the patient, a series of slices was obtained to be utilized in treatment planning. CT images were transferred to the Eclipse treatment planning system, after a reference isocenter was determined and marked. Segmentation and treatment planning will take place prior to treatment delivery. Patient set up and imaging was appropriate and completed without incident. Authorizer use:No us Gio Kiran M.D. 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
--- OUTSIDE RECORDS SUMMARY | 2024-12-16 14:45 | XMS_ITS | Encounter Summary ---
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 [address] [address] Phone: tel: fax: [facility] Region Referral ID Status Reason Start Date Expiration Date Visits Re quested Visits Authorized [id number] Closed 12/14/2024 03/16/2026 1 1 Encounter Details Date Type Department Care Team (Late st Contact Info) Description 12/16/2024 2:45 PM CDT Infusion Department of Infusion Therapy in [place], [place] [address] [place] [phone] Harjeet Antonio M.D. 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 [address] [place] [address] 12/29/2024 10:30 AM CDT Appointment Department of Radiation Oncology in [address] [address] Gio Kiran M.D. [address] [place] [phone] 12/30/2024 10:15 AM CDT Appointment Department of Radiation Oncology in [address] [address] Gio Kiran M.D. [facility] [place] [address] 12/30/2024 10:30 AM CDT Appointment Department of Radiation Oncology in [address] [address] Gio Kiran M.D. [address] [place] [phone] 12/31/2024 10:30 AM CDT Appointment Department of Radiation Oncology in [address] [phone] Gio Kiran M.D. [facility] [place] [address] 01/03/2025 10:15 AM CDT Appointment Department of Radiation Oncology in [address] [address] Gio Kiran M.D. [address] [place] [phone] 01/04/2025 10:15 AM CDT Appointment Department of Radiation Oncology in [address] [address] Gio Kiran M.D. [address] [place] [phone] 01/05/2025 10:15 AM CDT Appointment Department of Radiation Oncology in [address] [address] Gio Kiran M.D. [address] [place] [phone] 02/28/2025 1:00 PM BUS PERSON Appointment Department of Radiation Oncology in [address] [address] Gio Kiran M.D. 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 5 mL (500 units) of Heparin 100 units/mL to each port/lumen. When IVAD not accessed or infusing: When no infusion to maintain patency flush every 28 days following NaCL flush. 5 mL (500 units) of Heparin 100 units/mL to each port/lumen.Indications:Malignan t Neoplasm Of Lung Small Cell Left (HCC) Given 12/16/2024 4:20 PM CDT 500 Units sodium chloride 0.9 % injection 10-20 mL 10-20 mL, intra-catheter, As needed, line care, Starting on Latoya 12/16/24 at 1514, When IVAD accessed and infusing: Flush prior to and following infusion, between multiple consecutive infusions. 10 mL to each port/lumen.Indications:Malignan t Neoplasm Of Lung Small Cell Left (HCC) Given 12/16/2024 4:20 PM CDT 10 mL Given 12/16/2024 3:08 PM CDT 10 mL documented in this encounter
--- OUTSIDE RECORDS SUMMARY | 2024-12-16 15:12 | XMS_ITS | Encounter Summary ---
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 [address] [place] [address] Phone: tel: fax: [facility] Region Referral ID Status Reason Start Date Expiration Date Visits Re quested Visits Authorized [id number] Closed 12/13/2024 03/15/2026 1 1 Encounter Details Date Type Department Care Team (Latest Contact Info) Description 12/16/2024 3:12 PM CDT - 12/16/2024 11:59 PM CDT Hospital Encounter Department of Radiology in [place], [place] [address] [place] [address] Gio Kiran M.D. 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 [address] [place] [phone] 12/29/2024 10:30 AM CDT Appointment Department of Radiation Oncology in [address] [address] Gio Kiran M.D. [address] [place] [phone] 12/30/2024 10:15 AM CDT Appointment Department of Radiation Oncology in [address] [address] Gio Kiran M.D. [address] [place] [phone] 12/30/2024 10:30 AM CDT Appointment Department of Radiation Oncology in [address] [address] Gio Kiran M.D. [address] [place] [phone] 12/31/2024 10:30 AM CDT Appointment Department of Radiation Oncology in [address] [address] Gio Kiran M.D. [address] [place] [phone] 01/03/2025 10:15 AM CDT Appointment Department of Radiation Oncology in [address] [address] Gio Kiran M.D. [address] [place] [phone] 01/04/2025 10:15 AM CDT Appointment Department of Radiation Oncology in [address] [address] Gio Kiran M.D. [address] [place] [phone] 01/05/2025 10:15 AM CDT Appointment Department of Radiation Oncology in [address] [address] Gio Kiran M.D. [address] [place] [phone] 02/28/2025 1:00 PM PHARMACIST ASSISTANT Appointment Department of Radiation Oncology in [address] [address] Gio Kiran M.D. 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 Study obtained for treatment planning. 2. 8 mm rightward midline shift. Narrative 12/16/2024 4:54 PM CDT EXAM: MR BRAIN WITHOUT AND WITH IV CONTRAST COMPARISON:09/16/2024 FINDINGS: Left craniotomy. There is a subdural fluid collection/hematoma overlying the left frontal and parietal convexity as well as the anteroinferior left frontal lobe. There is multifocal nodular enhancement extra-axial/overlying the left frontal and temporal convexity consistent with biopsy-proven metastasis measuring up to 5.1 cm in craniocaudal dimension. Additional multifocal areas of sulcal enhancement in the left cerebrum may be related to congestive vasculature secondary to sulcal effacement. No definite nodular enhancement to suggest leptomeningeal carcinomatosis. There is marked vasogenic edema in the deep white matter of the left cerebral hemisphere. There is 9 mm rightward midline shift. There is medial displacement of the left uncus. Procedure Note Andrew Hernández M.D. - 12/16/2024 EXAM: MR BRAIN WITHOUT AND WITH IV CONTRAST COMPARISON:09/16/2024 FINDINGS: Left craniotomy. There is a subdural fluid collection/hematoma overlyingthe left frontal and parietal convexity as well as the anteroinferior leftfrontal lobe. There is multifocal nodular enhancement extra-axial/overlying the leftfrontal and temporal convexity consistent with biopsy-proven metastasismeasuring up to 5.1 cm in craniocaudal dimension. Additional multifocal areas of sulcal enhancement in the left cerebrum maybe related to congestive vasculature secondary to sulcal effacement. 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 There is marked vasogenic edema in the deep white matter of the leftcerebral hemisphere. There is 9 mm rightward midline shift. There ismedial displacement of the left uncus. IMPRESSION: 1. Study obtained for treatment planning. 2. 8 mm rightward midline shift. 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 Given 12/16/2024 3:55 PM CDT 8 mL sodium chloride 0.9 % injection 0-150 mL 0-150 mL, intravenous, As needed, line care, Starting on Latoya 12/16/24 at 1555 Given 12/16/2024 3:56 PM CDT 10 mL documented in this encounter
--- OUTSIDE RECORDS SUMMARY | 2024-12-23 11:49 | XMS_ITS | Encounter Summary ---
Author Organization [facility] Address [address] [place] [address] Care Team Providers Care It Network Architect Name Role Phone Unavailable Primary Care Provider Unavailabl e Reason for Referral * Radiation Therapy (Routine) - Authorized Specialty Diagnoses / Procedures Referred By Krista peterson Referred To Contact Diagnoses 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 (HCC) Procedures Management Visit Gio Kiran M.D. [address] [place] [address] Phone: tel: fax: [facility] Region Referral ID Status Reason Start Date Expiration Date V isits Requested Visits Authorized [id number] Authorized 12/13/2024 03/15/2026 10 10 Reason for Visit * Radiation Therapy (Routine) - Authorized Specialty Diagnoses / Procedures Referred By Krista peterson Referred To Contact Diagnoses 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 (HCC) Procedures Management Visit Gio Kiran M.D. [address] [place] [address] Phone: tel: fax: [facility] Region Referral ID Status Reason Start Date Expiration Date V isits Requested Visits Authorized [id number] Authorized 12/13/2024 03/15/2026 10 10 Encounter Details Date Type Department Care Team (Latest Contact Info) Description 12/23/2024 11:49 AM CDT - 12/23/2024 12:19 PM CDT Hospital Encounter Department of Radiation Oncology in [place] [address] [place] [phone] Gio Kiran M.D. 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 - 12/23/2024 12:15 PM CDT I met with the patient today prior to starting radiation therapy. I discussed with him that when I saw him in consultation I did not have access to his recent MRI imaging. I saw him on Friday and his treatment planning MRI was scheduled for . I reviewed with him those treatment planning MRI scans showing bulky or tumor than anticipated as well as tumor following along the surface of the brain extensively in the left hemisphere. I discussed with him that SRT to that area could be toxic due to the large surface area of the target volume and also that, given the pattern of spread, wherever I stopped the edge of the radiation target would likely be the border for recurrence of disease since it would be hard to encapsulated all of the microscopic disease in a treatment field. I had reviewed the imaging with a colleague who definitively agreed that this was not a suitable case for SRT. I reviewed with the patient again the potential risks and adverse effects of whole-brain radiation therapy including long-term or permanent neurocognitive deficits especially in short-term memory andconcentration. I discussed with him the role of memantine and limiting these neurocognitive effects. 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 I also considered hippocampal sparing radiation therapy, however after reviewing the physics the large midline shift and hopefully regression of that shift as he starts steroids will make it difficult to impossible to accurately and sufficiently limit dose to the hippocampus while covering the target area since the hippocampus especially on the patient's left side would be a likely be moving target over the 2 week course of treatment. Mr. Ferguson seemed neurologically intact grossly and appeared calm and with normal cognition throughout our discussion and agreed to proceed with whole- brain radiation therapy. documented in this encounter Plan of Treatment Upcoming Encounters Date Type Department Care Team (Late st Contact Info) Description 12/28/2024 10:30 AM CDT Appointment Department of Radiation Oncology in [address] [address] Gio Kiran M.D. [address] [place] [phone] 12/29/2024 10:30 AM CDT Appointment Department of Radiation Oncology in [address] [address] Gio Kiran M.D. [address] [place] [phone] 12/30/2024 10:15 AM CDT Appointment Department of Radiation Oncology in [address] [address] Gio Kiran M.D. [address] [place] [phone] 12/30/2024 10:30 AM CDT Appointment Department of Radiation Oncology in [address] [address] Gio Kiran M.D. [address] [place] [phone] 12/31/2024 10:30 AM CDT Appointment Department of Radiation Oncology in [place], [place] [address] [place] [address] [place] [address] Gio Kiran M.D. [address] [place] [address] 01/03/2025 10:15 AM CDT Appointment Department of Radiation Oncology in [address] [address] Gio Kiran M.D. [address] [place] [phone] 01/04/2025 10:15 AM CDT Appointment Department of Radiation Oncology in [address] [address] Gio Kiran M.D. [facility] [address] 01/05/2025 10:15 AM CDT Appointment Department of Radiation Oncology in [address] [address] Gio Kiran M.D. [facility] [place] [address] 02/28/2025 1:00 PM CHRONOMETER REPAIRER Appointment Department of Radiation Oncology in [address] [address] Gio Kiran M.D. [facility] [place] [address] Scheduled Orders Name Type Priority Associated Diagnoses Orde r Schedule Management Visit Radiation Oncology Routine 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 (HCC) Once for 1 Occurrences starting 12/23/2024 until 12/23/2024 documented as of this encounter Visit Diagnoses Diagnosis 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 (HCC) documented in this encounter
--- OUTSIDE RECORDS SUMMARY | 2024-12-23 12:20 | XMS_ITS | Encounter Summary ---
Author Organization [facility] Address [address] [place] [address] Care Team Providers Care Corporate Specialist Name Role Phone Unavailable Primary Care Provider Unavailabl e Reason for Visit * Radiation Therapy (Routine) - Authorized Specialty Diagnoses / Procedures Referred By Contac t Referred To Contact Diagnoses 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 (HCC) Procedures Prior Auth Rad Tx [place] STEREOTACTIC BODY RADTN DEL [place] IMRT RADIOTHERAPY PLAN SRT Gio Kiran M.D. [address] [place] [phone] Phone: tel: fax: [facility] Referral ID Status Reason Start Date Expiration Date V isits Requested Visits Authorized [id number] Authorized 12/21/2024 03/15/2026 3 3 Encounter Details Date Type Department Care Team (Late st Contact Info) Description 12/23/2024 12:20 PM CDT Hospital Encounter Department of Radiation Oncology in [place], [place] [address] [place] [phone] Gio Kiran M.D. 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 [address] [place] [address] 12/29/2024 10:30 AM CDT Appointment Department of Radiation Oncology in [place], [place] [address] [place] [address] Gio Kiran M.D. [address] [place] [address] 12/30/2024 10:15 AM CDT Appointment Department of Radiation Oncology in [address] [address] Gio Kiran M.D. [facility] [place] [address] 12/30/2024 10:30 AM CDT Appointment Department of Radiation Oncology in [place], [place] [address] [place] [address] Gio Kiran M.D. [facility] [place] [address] 12/31/2024 10:30 AM CDT Appointment Department of Radiation Oncology in [place], [place] [address] [place] [address] Gio Kiran M.D. [facility] [place] [address] 01/03/2025 10:15 AM CDT Appointment Department of Radiation Oncology in [place], [place] [address] [place] [address] Gio Kiran M.D. [facility] [place] [address] 01/04/2025 10:15 AM CDT Appointment Department of Radiation Oncology in [place], [place] [address] [place] [address] Gio Kiran M.D. [address] [facility] [place] [address] 01/05/2025 10:15 AM CDT Appointment Department of Radiation Oncology in [place], [place] [address] [facility] [place] [address] Gio Kiran M.D. 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 [facility] [place] [address] documented as of this encounter Visit Diagnoses Not on filedocumented in this encounter
--- OUTSIDE RECORDS SUMMARY | 2024-12-24 11:50 | XMS_ITS | Encounter Summary ---
Author Organization [facility] Address [address] [place] [address] Care Team Providers Care Currency Exchange Specialist Name Role Phone Unavailable Primary Care Provider Unavailabl e Reason for Visit * Radiation Therapy (Routine) - Authorized Specialty Diagnoses / Procedures Referred By Contac t Referred To Contact Diagnoses 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 (HCC) Procedures Prior Auth Rad Tx [place] RADTN TX DEL >=1 MEV COMPLEX RI GUIDANCE FOR LOC RAD TX RI 3D RAD THER ISODOSE FIELD PLAN 3D Gio Kiran M.D. [address] [place] [phone] Phone: tel: fax: [facility] Referral ID Status Reason Start Date Expiration Date V isits Requested Visits Authorized [id number] Authorized 10/25/2024 01/14/2026 10 10 Encounter Details Date Type Department Care Team (Late Contact Info) Description 12/24/2024 11:50 AM CDT Hospital Encounter Department of Radiation Oncology in [place], [place] [address] [place] [phone] Gio Kiran M.D. 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 [address] [place] [address] 12/29/2024 10:30 AM CDT Appointment Department of Radiation Oncology in [place], [place] [address] [place] [phone] Gio Kiran M.D. [address] [place] [phone] 12/30/2024 10:15 AM CDT Appointment Department of Radiation Oncology in [address] [address] Gio Kiran M.D. [place] [address] 12/30/2024 10:30 AM CDT Appointment Department of Radiation Oncology in [address] [address] Gio Kiran M.D. [address] [place] [phone] 12/31/2024 10:30 AM CDT Appointment Department of Radiation Oncology in [address] [address] Gio Kiran M.D. [place] [address] 01/03/2025 10:15 AM CDT Appointment Department of Radiation Oncology in [address] [address] Gio Kiran M.D. [address] [place] [address] 01/04/2025 10:15 AM CDT Appointment Department of Radiation Oncology [address] [facility] [phone] Gio Kiran M.D. [place] [address] 01/05/2025 10:15 AM CDT Appointment Department of Radiation Oncology in [address] [place] [phone] Gio Kiran M.D. 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 [address] [place] [phone] documented as of this encounter Visit Diagnoses Not on filedocumented in this encounter
--- OUTSIDE RECORDS SUMMARY | 2024-12-27 10:54 | XMS_ITS | Encounter Summary ---
Author Organization [facility] Address [address] [place] [address] Care Team Providers Care Enrichment Assistant Name Role Phone Unavailable Primary Care Provider Unavailabl e Reason for Visit * Radiation Therapy (Routine) - Authorized Specialty Diagnoses / Procedures Referred By Contac t Referred To Contact Diagnoses 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 (HCC) Procedures Prior Auth Rad Tx [place] RADTN [place] DEL >=1 MEV COMPLEX [place] GUIDANCE FOR LOC RAD [place] 3D RAD THER ISODOSE FIELD PLAN 3D Gio Kiran M.D. [address] [place] [phone] Phone: tel: fax: [facility] Referral ID Status Reason Start Date Expiration Date V isits Requested Visits Authorized [id number] Authorized 10/25/2024 01/14/2026 10 10 Encounter Details Date Type Department Care Team (Late Contact Info) Description 12/27/2024 10:54 AM CDT Hospital Encounter Department of Radiation Oncology in [place], [place] [address] [place] [phone] Gio Kiran M.D. 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 [address] [place] [address] 12/29/2024 10:30 AM CDT Appointment Department of Radiation Oncology in [place], [place] [address] [place] [address] Gio Kiran M.D. [address] [place] [phone] 12/30/2024 10:15 AM CDT Appointment Department of Radiation Oncology in [address] [address] Gio Kiran M.D. [facility] [address] 12/30/2024 10:30 AM CDT Appointment Department of Radiation Oncology in [address] [address] Gio Kiran M.D. [address] [place] [phone] 12/31/2024 10:30 AM CDT Appointment Department of Radiation Oncology in [address] [address] Gio Kiran M.D. [facility] [place] [address] 01/03/2025 10:15 AM CDT Appointment Department of Radiation Oncology in [address] [address] Gio Kiran M.D. [address] [place] [address] 01/04/2025 10:15 AM CDT Appointment Department of Radiation Oncology [address] [facility] [address] Gio Kiran M.D. [facility] [address] 01/05/2025 10:15 AM CDT Appointment Department of Radiation Oncology in [address] [place] [address] Gio Kiran M.D. [facility] [address] 02/28/2025 1:00 PM UTILITY PORTER Appointment Department of Radiation Oncology in [address] [address] Gio Kiran M.D. [address] [place] [phone] documented as of this encounter Visit Diagnoses Not on filedocumented in this encounter
--- OUTSIDE RECORDS SUMMARY | 2024-12-27 10:55 | XMS_ITS | Encounter Summary ---
Author Organization [facility] Address [address] [place] [address] Care Team Providers Care Planer Setter Name Role Phone Unavailable Primary Care Provider Unavailabl e Reason for Referral * Outpatient (Routine) - Authorized Specialty Diagnoses / Procedures Referred By Krista peterson Referred To Contact Radiation Oncology Gio Kiran M.D. [address] [place] [address] Phone: tel: fax: [facility] Region Referral ID Status Reason Start Date Expiration Date V isits Requested Visits Authorized [id number] Authorized 12/27/2024 06/28/2026 2 2 Reason for Visit * Outpatient (Routine) - Authorized Specialty Diagnoses / Procedures Referred By Krista peterson Referred To Contact Radiation Oncology Gio Kiran M.D. [address] [place] [address] Phone: tel: fax: [facility] Region Referral ID Status Reason Start Date Expiration Date V isits Requested Visits Authorized [id number] Authorized 12/27/2024 06/28/2026 2 2 Encounter Details Date Type Department Care Team (Latest Contact Info) Description 12/27/2024 10:55 AM CDT Hospital Encounter Department of Radiation Oncology in [place], [place] [address] [place] [address] Gio Kiran M.D. [address] [place] [phone] Zay Watters R.N. 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 [address] [place] [phone] 12/29/2024 10:30 AM CDT Appointment Department of Radiation Oncology in [address] [address] Gio Kiran M.D. [address] [place] [phone] 12/30/2024 10:15 AM CDT Appointment Department of Radiation Oncology in [address] [address] Gio Kiran M.D. [address] [place] [phone] 12/30/2024 10:30 AM CDT Appointment Department of Radiation Oncology in [address] [address] Gio Kiran M.D. [address] [place] [address] 12/31/2024 10:30 AM CDT Appointment Department of Radiation Oncology in [address] [address] Gio Kiran M.D. [address] [place] [address] 01/03/2025 10:15 AM CDT Appointment Department of Radiation Oncology in [address] [address] Gio Kiran M.D. [address] [place] [phone] 01/04/2025 10:15 AM CDT Appointment Department of Radiation Oncology in [address] [address] Gio Kiran M.D. [address] [place] [phone] 01/05/2025 10:15 AM CDT Appointment Department of Radiation Oncology in [address] [address] Gio Kiran M.D. [address] [place] [phone] 02/28/2025 1:00 PM COUNTER STITCHER Appointment Department of Radiation Oncology in [address] [address] Gio Kiran M.D. 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
[2024-12-27 12:03] VITALS: BP 125/84; PULSE 67; RESP 18; TEMP 36.6; O2SAT 97; BMI 26.6
--- OUTSIDE RECORDS SUMMARY | 2024-12-27 12:04 | XMS_ITS | Encounter Summary ---
Author Organization [facility] Address [address] [place] [address] Care Team Providers Care Esol Teacher Name Role Phone Unavailable Primary Care Provider Unavailabl e Reason for Referral * Outpatient (Routine) - Authorized Specialty Diagnoses / Procedures Referred By Contac t Referred To Contact Radiation Oncology Laureen Leslie P.A.-C., M.S. [address] [place] [phone] Phone: tel: fax: Gio Kiran M.D. [address] [place] [phone] Phone: tel: fax: Referral ID Status Reason Start Date Expiration Date V isits Requested Visits Authorized [id number] Authorized 12/07/2024 06/08/2026 [address] chest prior, please get images and report prior to visit Encounter Details Date Type Department Care Team (Late st Contact Info) Description 12/07/2024 Orders Only Department of Radiation Oncology in [place], [place] [address] [place] [phone] Laureen Leslie P.A.-C., M.S. 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 [address] [place] [phone] 12/29/2024 10:30 AM CDT Appointment Department of Radiation Oncology in [address] [address] Gio Kiran M.D. [address] [place] [phone] 12/30/2024 10:15 AM CDT Appointment Department of Radiation Oncology in [address] [address] Gio Kiran M.D. [address] [place] [phone] 12/30/2024 10:30 AM CDT Appointment Department of Radiation Oncology in [address] [address] Gio Kiran M.D. [address] [place] [phone] 12/31/2024 10:30 AM CDT Appointment Department of Radiation Oncology in [address] [address] Gio Kiran M.D. [address] [place] [phone] 01/03/2025 10:15 AM CDT Appointment Department of Radiation Oncology in [place], [place] [address] [facility] [address] Gio Kiran M.D. [address] [place] [address] 01/04/2025 10:15 AM CDT Appointment Department of Radiation Oncology in [address] [place] [address] Gio Kiran M.D. [address] [place] [phone] 01/05/2025 10:15 AM CDT Appointment Department of Radiation Oncology in [place], [place] [address] [facility] [address] Gio Kiran M.D. [address] [place] [phone] 02/28/2025 1:00 PM CHIMNEY SWEEPER Appointment Department of Radiation Oncology in [place], [place] [address] [place] [address] [place] [address] Gio Kiran M.D. [address] [place] [phone] Scheduled Referrals Name Type Priority Associated Diagnoses Orde r Schedule Radiation Oncology office visit (clinic) Outpatient Referral Routine Expected: 02/25/2025, Expires: 03/09/2026 documented as of this encounter Visit Diagnoses Diagnosis 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 (HCC)- Primary documented in this encounter
--- OUTSIDE RECORDS SUMMARY | 2024-12-27 12:04 | XMS_ITS | Encounter Summary ---
Author Organization [facility] Address [address] [place] [address] Care Team Providers Care Adjunct Faculty For Medical Terminology Name Role Phone Unavailable Primary Care Provider Unavailabl e Encounter Details Date Type Department Care Team (Late st Contact Info) Description 11/19/2024 Documentation Department of Radiation Oncology in [place], [place] [address] [place] [address] Gio Kiran M.D. 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 Treatment Intent: Palliative Concomitant Therapy: None Single Plan Treatment Course: [id number] Plan ID Fractions Dose / Fraction (cGy) Dose Treated (cGy) Dose Planned (cGy) First Treatment Last Treatment Elapsed Days [id number] 400 6000 6000 11/01/2024 11/19/2024 18 Course Summary 11/01/2024 11/19/2024 18 Radiation Modality: Photons CLINICAL SUMMARY Nick Ferguson completed radiation treatment as planned without interruptions. The course of treatment was tolerated well. The patient experienced no toxicities during radiation treatment. TREATMENT RESPONSE: Response to treatment will be determined by post-treatment imaging and/or laboratory work. RECOMMENDED FOLLOW UP: Radiation Oncologist - Dr. Kiran Signed by: Renetta Watters R.N., 11/19/2024 9:13 AM CDT [facility] [address] [place] [id number] Cosigned by Gio Kiran M.D. at 11/23/2024 1:18 PM CDT documented in this encounter Plan of Treatment Upcoming Encounters Date Type Department Care Team (Late st Contact Info) Description 12/28/2024 10:30 AM CDT Appointment Department of Radiation Oncology in [address] [address] Gio Kiran M.D. [address] [place] [phone] 12/29/2024 10:30 AM CDT Appointment Department of Radiation Oncology in [address] [address] Gio Kiran M.D. [address] [place] [phone] 12/30/2024 10:15 AM CDT Appointment Department of Radiation Oncology in [address] [address] Gio Kiran M.D. [address] [place] [phone] 12/30/2024 10:30 AM CDT Appointment Department of Radiation Oncology in [place], [place] [address] [place] [phone] Gio Kiran M.D. [address] [place] [address] 12/31/2024 10:30 AM CDT Appointment Department of Radiation Oncology in [place], [place] [address] [place] [address] Gio Kiran M.D. [facility] [place] [place] [address] 01/03/2025 10:15 AM CDT Appointment Department of Radiation Oncology in [address] [address] Gio Kiran M.D. [facility] [place] [address] 01/04/2025 10:15 AM CDT Appointment Department of Radiation Oncology in [place] [address] [place] [address] Gio Kiran M.D. [facility] [place] [address] 01/05/2025 10:15 AM CDT Appointment Department of Radiation Oncology in [place] [address] [place] [address] Gio Kiran M.D. 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 [facility] [place] [address] documented as of this encounter Visit Diagnoses Not on filedocumented in this encounter
--- OUTSIDE RECORDS SUMMARY | 2024-12-27 12:04 | XMS_ITS | Encounter Summary ---
Author Organization [facility] Address [address] [place] [address] Care Team Providers Care Manager Medicare Name Role Phone Unavailable Primary Care Provider Unavailabl e Reason for Referral * Outpatient (Routine) - Closed Specialty Diagnoses / Procedures Referred By Contac t Referred To Contact Diagnoses 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 (HCC) Procedures Perform central hat liner: Other (specify); access for MRI Harjeet Antonio M.D. [address] [place] [address] Phone: tel: fax: [facility] Referral ID Status Reason Start Date Expiration Date Visits Re quested Visits Authorized [id number] Closed 12/14/2024 03/16/2026 1 1 Encounter Details Date Type Department Care Team (Late st Contact Info) Description 12/14/2024 Orders Only Department of Radiology in [place], [place] [address] [place] [phone] Harjeet Antonio M.D. 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 [address] [place] [phone] 12/29/2024 10:30 AM CDT Appointment Department of Radiation Oncology in [address] [address] Gio Kiran M.D. [address] [place] [phone] 12/30/2024 10:15 AM CDT Appointment Department of Radiation Oncology in [address] [address] Gio Kiran M.D. [address] [place] [phone] 12/30/2024 10:30 AM CDT Appointment Department of Radiation Oncology in [address] [address] Gio Kiran M.D. [address] [place] [phone] 12/31/2024 10:30 AM CDT Appointment Department of Radiation Oncology in [address] [address] Gio Kiran M.D. [facility] [place] [address] 01/03/2025 10:15 AM CDT Appointment Department of Radiation Oncology in [address] [place] [address] Gio Kiran M.D. [address] [place] [address] 01/04/2025 10:15 AM CDT Appointment Department of Radiation Oncology in [address] [address] Gio Kiran M.D. [facility] [place] [address] 01/05/2025 10:15 AM CDT Appointment Department of Radiation Oncology in [address] [address] Gio Kiran M.D. 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 [address] [place] [phone] Scheduled Orders Name Type Priority Associated Diagnoses Orde r Schedule Perform central hat liner: Other (specify); access for MRI Procedures Routine 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 (HCC) Expected: 12/16/2024, Expires: 03/16/2026 documented as of this encounter Visit Diagnoses Diagnosis 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 (HCC)- Primary documented in this encounter
--- OUTSIDE RECORDS SUMMARY | 2024-12-27 12:04 | XMS_ITS | Encounter Summary ---
Author Organization [facility] Address [address] [place] [address] Care Team Providers Care Signaling Design Engineer Name Role Phone Unavailable Primary Care Provider Unavailabl e Reason for Referral * Outpatient (Routine) - Closed Specialty Diagnoses / Procedures Referred By Krista peterson Referred To Contact Radiation Oncology Mraleen Snider APRN, C.N.P., D.N.P. [address] [place] [address] Phone: tel: fax: Gio Kiran M.D. [address] [place] [address] Phone: tel: fax: Referral ID Status Reason Start Date Expiration Date Visits Re quested Visits Authorized [id number] Closed 12/13/2024 06/14/2026 1 1 Scheduling Instructions Coordinate with SIM * MRI/CAT/PET Scan (Routine) - Closed Specialty Diagnoses / Procedures [facility] To Contact Radiology Diagnoses 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 (HCC) Procedures MR Brain without and with IV Contrast Gio Kiran M.D. [address] [place] [address] Phone: tel: fax: [facility] Region Referral ID Status Reason Start Date Expiration Date Visits Re quested Visits Authorized [id number] Closed 12/13/2024 03/15/2026 1 1 * Radiation Therapy (Routine) - Authorized Specialty Diagnoses / Procedures Referred By Krista peterson Referred To Contact Diagnoses 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 (HCC) Procedures Management Visit Gio Kiran M.D. [address] [place] [address] Phone: tel: fax: [facility] Region Referral ID Status Reason Start Date Expiration Date V isits Requested Visits Authorized [id number] Authorized 12/13/2024 03/15/2026 10 10 * Radiation Therapy (Routine) - Authorized Specialty Diagnoses / Procedures Referred By Krista peterson Referred To Contact Diagnoses 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 (HCC) Procedures Initial Rad Onc Treatment Planning CT Simulation LA IMRT RADIOTHERAPY PLAN SIM Gio Kiran M.D. [address] [place] [address] Phone: tel: fax: [facility] Region Referral ID Status Reason Start Date Expiration Date V isits Requested Visits Authorized [id number] Authorized 12/15/2024 03/15/2026 2 2 * Radiation Therapy (Routine) - Authorized Specialty Diagnoses / Procedures Referred By Krista peterson Referred To Contact Diagnoses 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 (HCC) Procedures Prior Auth Rad Tx LA STEREOTACTIC BODY RADTN DEL LA IMRT RADIOTHERAPY PLAN SRT Gio Kiran M.D. [address] [place] [address] Phone: tel: fax: [place] Region Referral ID Status Reason Start Date Expiration Date V isits Requested Visits Authorized [id number] Authorized 12/21/2024 03/15/2026 3 3 Encounter Details Date Type Department Care Team (Late st Contact Info) Description 12/13/2024 Clinical Communication Department of Radiation Oncology in [place], [place] [address] [place] [address] Gio Kiran M.D. 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 Jori Benitez radiation oncologist in the [facility]. Dr. Benitez recommends radiation and the patient would like this done here at our facility. He is scheduled to have chemo on Friday12/15/[address] [place] [address] Browning. Marisela stated that Dr. Kiran needs to talk with Dr. Browning to discuss what needs to happen first radiation or chemo and that this is urgent? Dr. Benitez's note is available for review in [facility]. The patient just finished radiation for lung cancer here on 11/19/[address] appropriate orders and the desk can get him scheduled. documented in this encounter Plan of Treatment Upcoming Encounters Date Type Department Care Team (Late st Contact Info) Description 12/28/2024 10:30 AM CDT Appointment Department of Radiation Oncology in [place], [place] [address] [place] [address] Gio Kiran M.D. [address] [place] [address] 12/29/2024 10:30 AM CDT Appointment Department of Radiation Oncology in [place], [place] [address] [facility] [place] [address] Gio Kiran M.D. [address] [place] [address] 12/30/2024 10:15 AM CDT Appointment Department of Radiation Oncology in [place], [place] [address] [place] [phone] Gio Kiran M.D. [address] [place] [address] 12/30/2024 10:30 AM CDT Appointment Department of Radiation Oncology in [place], [place] [address] [place] [address] Gio Kiran M.D. [address] [place] [address] 12/31/2024 10:30 AM CDT Appointment Department of Radiation Oncology in [place], [place] [address] [place] [address] Gio Kiran M.D. [address] [place] [address] 01/03/2025 10:15 AM CDT Appointment Department of Radiation Oncology in [place], [place] [address] [place] [address] Gio Kiran M.D. [address] [place] [address] 01/04/2025 10:15 AM CDT Appointment Department of Radiation Oncology in [address] [address] Gio Kiran M.D. [address] [place] [phone] 01/05/2025 10:15 AM CDT Appointment Department of Radiation Oncology in [address] [address] Gio Kiran M.D. 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 [address] [place] [phone] Scheduled Orders Name Type Priority Associated Diagnoses Order Schedule Prior Auth Rad Tx Radiation Oncology Routine 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 (HCC) Ordered: 12/13/2024 Management Visit Radiation Oncology Routine 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 (HCC) 10 Occurrences starting 12/13/2024 until 03/15/2026 Scheduled Referrals Name Type Priority Associated Diagnoses Orde r Schedule Radiation Oncology office visit (clinic) Outpatient Referral Routine Expected: 12/16/2024, Expires: 03/15/2026 documented as of this encounter Results * MR Brain without [...] planning. 2. 8 mm rightward midline shift. us Gio Kiran M.D. IMG MRI PROCEDURES Final Result * Initial Rad Onc Treatment Planning CT Simulation (12/15/2024 1:30 PM CDT) Narrative [facility] - 12/15/2024 1:30 PM CDT Gio Kiran [...] imaging was appropriate and completed without incident. Vessel Master use:No Gio Kiran M.D. RADIATION ONCOLOGY ORDER DALLIN Final Result CAROL alfaro documented in this encounter Visit Diagnoses Diagnosis 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 (HCC)- Primary 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 (HCC) 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 (HCC) documented in this encounter
--- OUTSIDE RECORDS SUMMARY | 2024-12-27 12:04 | XMS_ITS | Clinical Summary ---
Author Organization [employer] [facility] Address Formerly [facility] [place] [address] Care Team Providers Care Curtain Mender Name Role Phone Marianne Browning MD Unavailable [phone] Will Gaitan MD Primary Care Provider [phone] Christi Cordon RN Unavailable Edgar Benitez MD Unavailable [phone] Allergies No known active allergies Medications naloxone (NARCAN) 4 mg/actuation nasal spray Inhale 1 [place] into affected nostril(s) each time if needed for Patient Diff To Arouse or Resp Rate < 8 / min. Additional doses may be given every 2 to 3 minutes until emergency medical assistance arrives. Active amitriptyline (ELAVIL) 25 mg tabletIndicatio ns:Migraine without status migrainosus, not intractable, unspecified migraine type Take 1 Tablet (25 mg) by mouth once daily. 90 Tablet 3 12/10/19 24 Active medication order composerIndicat ions:Small cell carcinoma of lung, unspecified laterality, unspecified part of lung (HC),Medical cannabis use,Cancer associated pain [place] medical cannabis [id number] 02/11/20 24 Active acetaminophen (TYLENOL) 325 mg tabletIndicatio ns:Small cell carcinoma of lung, unspecified laterality, unspecified part of lung (HC) Take 1-2 Tablets (325-650 mg) by mouth every 6 hours if needed for Pain. Max acetaminophen dose: 4000mg in 24 hrs. 12/31/20 24 Active pregabalin (LYRICA) 100 mg capsuleIndicati ons:Small cell lung cancer (HC),Cancer associated pain Take 1 Capsule (100 mg) by mouth two times daily. 120 Capsule 2 05/13/19 25 Active Additional Information Patient taking differently:100 mg OralDAILY, Informant: Patient's Recall, Reported on 11/29/2024 levothyroxine 50 mcg tabletIndicatio ns:Hypothyroidi sm, unspecified type Take 1 Tablet (50 mcg) by mouth once daily. 90 Tablet 1 08/07/19 25 Active SUMAtriptan 100 mg tabletIndicatio ns:Chronic migraine without aura without status migrainosus, not intractable Take 1 Tablet (100 mg) by mouth 2 times daily if needed for Migraine. Give at minimum 2hrs apart. Max Dose: 200mg per 24hrs. 60 Tablet 1 09/22/19 25 Active oxyCODONE 5 mg immediate release tabletIndicatio ns:Small cell carcinoma of lung, unspecified laterality, unspecified part of lung (HC) Take 1-2 Tablets (5-10 mg) by mouth every 4 hours if needed for Pain. 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 X 3 days, then ONE-HALF (1 mg) twice daily x 3 days, then discontinue 9 Tablet 5 11:02 AM CDT 12/06/19 25 Active famotidine (PEPCID) 20 mg tabletIndicatio ns:Cancer associated pain Take 1 Tablet (20 mg) by mouth every 12 hours. 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 X 5 days, then ONE-HALF tab twice daily x 3 days, then discontinue 13 Tablet 5 11:02 AM CDT 12/06/19 25 Active lisinopriL (PRINIVIL; ZESTRIL) 10 mg tabletIndicatio ns:HTN (hypertension) Take 1 Tablet (10 mg) by mouth once daily. 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 Cancer associated pain 03/29/2022 Small cell lung cancer 01/31/2022 Cancer Staging:Clinical stage from 01/31/2022:Stage IIIC(cT4, cN3, cM0) - Signed by Marianne Browning MD on 01/31/2022 HTN (hypertension) 01/11/2022 Colon polyp 06/03/2019 Overview (06/03/2019): Colonoscopy 05/2019 polyps, repeat in 3 years Encounters Date Type Department Care Team Description 12/17/2024 11:18 AM CDT - 12/17/2024 11:59 PM CDT Hospital Encounter [facility] [address] [place] [address] [place] [address] Marleen Snider, FOREX TRADER, SUPERVISOR FUR FLOOR WORKER Malignant neoplasm of lung (HC) 12/17/2024 11:09 AM CDT - 12/17/2024 11:17 AM CDT Hospital Encounter [facility] [address] [place] [address] Rd [address] [place] [address] Small cell carcinoma of lung, unspecified laterality, unspecified part of lung (HC) (Primary Dx) 12/17/2024 Travel 12/17/2024 Telephone [facility] [address] [place] [address] Rd [address] [place] [address] Marianne Browning MD MR/CT 12/15/2024 Orders Only [facility] [address] [place] [address] Marianne Browning MD <No scans attached> 12/15/2024 Patient Outreach [facility] Care Management - Advanced Care Team [address] [place] [address] Viri Valdes, MANAGEMENT DEVELOPMENT SPECIALIST Complex Care Management (Engagement outreach ) 12/13/2024 1:09 PM CDT - 12/13/2024 11:59 PM CDT Hospital Encounter [facility] Radiation On[facility] [address] [place] [address] Edgar Benitez MD 12/13/2024 Travel 12/10/2024 Travel 12/08/2024 Travel 12/08/2024 Orders Only [facility] [address] [place] [address] Marleen Snider APRN, SUPERVISOR FUR FLOOR WORKER <No scans attached> 12/07/2024 Telephone [facility] [address] [place] [address] Marianne Patterson I [facility] Hospital F/U 12/06/2024 Telephone [facility] [address] [place] [address] Marianne Browning MD med question 12/06/[address] [facility] [address] [place] [address] Renate Scott, RN Primary RN Care Management; Hospital F/U (Brain mass, DOD: 12/05/24, LACE+: 79/) 12/05/2024 Orders Only [facility] [address] [facility] [address] [place] [phone] Kaitlin Dorman NP <No scans attached> 12/03/2024 5:30 AM CDT - 12/03/2024 11:59 PM CDT Hospital Encounter [facility] Radiation Oncology - [address] [address] Edgar Benitez MD 12/02/2024 4:15 PM CDT Anesthesia Event [address] [address] Jag Cortez MD Mele, Nicholas James, CRNA 12/02/2024 1:30 PM CDT - 12/02/2024 9:37 PM CDT Surgery [address] [address] Laurent Olmos MD CRANIOTOMY FOR RESECTION LEFT FRONTAL BRAIN LESION WITH STEALTH 11/30/2024 Patient Outreach [facility] Care Management - Advanced Care Team [address] [place] [address] Tierra Taylor RN Chronic Kidney Disease 11/29/2024 1:56 PM CDT - 12/05/2024 11:57 AM CDT Hospital Encounter [address] [address] Ericka Sen DO [facility], U Hospitalist [facility] Davian Ahmadi MD Van Langen, Cameron Karel, MD Neoplasm causing mass effect and brain compression on adjacent structures (HC) (Primary Dx); Palliative care encounter; Small cell lung cancer (HC); Colon polyp; Brain mass; Stage 5 chronic kidney disease (HC); Diverticulitis; Metabolic acidosis; DERRICK (acute kidney injury); Pancytopenia due to chemotherapy; 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); Other specified hypothyroidism; Adrenal mass (HC); Neuropathy associated with cancer (HC); Cancer associated pain; Medical cannabis use; Small cell carcinoma of lung, unspecified laterality, unspecified part of lung (HC); HTN (hypertension); Polyp of colon, unspecified part of colon, unspecified type Discharge Disposition: Home Self Care 11/29/2024 11:00 AM CDT - 11/29/2024 1:55 PM CDT Hospital Encounter [address] [address] Marianne Browning MD Small cell carcinoma of lung, unspecified laterality, unspecified part of lung (HC) 11/29/2024 10:30 AM CDT Office Visit [place] [address] [place] [address] Marianne Browning MD Follow Up (Post radiation follow up) 11/29/2024 9:55 AM CDT - 11/29/2024 10:59 AM CDT Hospital Encounter [place] [address] [place] [address] Small cell carcinoma of lung, unspecified laterality, unspecified part of lung (HC) (Primary Dx) 11/29/2024 Travel 11/26/2024 [facility] Telephone Encounter [place] [address] [address] Earline Ordonez RN Pre Procedure (PVP) 11/24/2024 Travel 10/28/2024 Telephone [place] [address] [address] Marianne Browning MD MR/CT 10/27/2024 6:41 AM CDT - 10/27/2024 11:59 PM CDT Hospital Encounter [address] [place] [address] Marianne Browning MD Small cell lung carcinoma, left (HC) 10/27/2024 Travel 10/26/2024 Telephone [place] [address] [address] Marianne Browning MD Order for port access 10/21/2024 Patient Outreach [facility] Care Management - Advanced Care Team [facility] [place] [address] Haritha Mcadams Complex Care Management (CCM engagement outreach due to Payer Referral/BCBS/) 10/21/2024 Orders Only [address] [place] [address] Gio Kiran MD 1 scan: (1-Ord) MR thoracic 10/20/2024 9:30 AM CDT Office Visit [facility] [address] [place] [address] Marianne Browning MD Follow Up (Follow up ) 10/20/2024 Travel 10/18/[address] [facility] [address] [place] [address] Ana Maria Neely, CELESTINE Primary RN Care Management; Hospital F/U (acute kidney inujry /DOD: 10/17/24/LACE: 77) 10/18/2024 Travel 10/17/[address] [address] Manolo Ellison MD update 10/14/2024 9:24 PM CDT - 10/17/2024 4:45 PM CDT Hospital Encounter [facility] [address] [place] [address] Galen Arndt MD [facility], Hospitalist Nica Guzman DO Hasan, Syed Abutalib, MBBS Bernstein, Daniel Seth, MD Hypotension due to hypovolemia (Primary Dx); Acute vomiting; Acute diarrhea; Dehydration; Pancytopenia (HC); DERRICK (acute kidney injury) Discharge Disposition: Home Self Care 10/14/2024 Telephone [facility] [address] [facility] [address] [place] [address] Maonlo Ellison MD 10/14/2024 Travel 10/14/2024 Telephone [facility] [address] [place] [address] Marianne Browning MD REFILL 10/07/2024 8:30 AM CDT Ancillary Procedure [facility] [address] [place] [address] 10/07/2024 Travel 10/05/2024 9:00 AM CDT - 10/05/2024 11:59 PM CDT Hospital Encounter [facility] [address] [place] [address] Marianne Browning MD 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) (Primary Dx) 10/04/2024 Travel 09/30/2024 Telephone [facility] [address] [place] [address] Marianne Browning MD prescription sign off 09/30/[address] [facility] [address] [place] [phone] Angela Johnson MD Questions 09/28/2024 11:00 AM CDT Office Visit [facility] [address] [place] [address] Marianne Browning MD Follow Up 09/28/2024 Travel from Last 3 Months Immunizations Immunization Administration Dates Next Due Tdap 04/22/2019 Family History Medical History Relation Name Comments Cancer-breast Mother Relation Name Status Comments Mother Social History Tobacco Use Types Packs/Day Years Used Date Smoking Tobacco: Former Cigarettes 1 30 Q uit: 10/14/2023 Smokeless Tobacco: Never Tobacco Cessation:Counseling Given: Not Answered Alcohol Use Standard Drinks/Week Comments Yes 0 (1 standard drink = 0.6 oz pur e alcohol) drink everyday, 6pk/day PHQ-2 Answer Date Recorded PHQ-2 TOTAL SCORE 0 07/18/2021 Social Connections Answer Date Recorded Do you often feel lonely or isolated from those around you? 0 11/30/2024 Financial Resource Strain Answer Date R ecorded Difficulty of Paying Living Expenses 3 07/27/2024 Difficulty of Paying Living Expenses Not on file 07/27/2024 Food Insecurity Answer Date Recorded Do you worry your food will run out before you are able to buy more? 1 11/30/2024 Transportation Needs Answer Date Record ed Does lack of transportation keep you from medica l appointments? 1 11/30/2024 Does lack of transportation keep you from work, meetings or getting things that you need? 1 11/30/2024 Housing Stability Answer Date Recorded What is your housing situation today? 1 11/30/2024 Interpersonal Safety Answer Date Record ed Are you being hit, kicked, p ushed or yelled at (see row info)? No 11/29/2024 Interpersonal Safety Abuse 12 - 18 Not on file 11/29/2024 Interpersonal Safety Ambulatory Vulnerability No t on file 11/29/2024 Utilities Answer Date Recorded Do you have trouble paying f or utilities (for example, heat, electricity, water, phone)? 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 file Not on file Not on file Obstetrics History Last Filed Vital Signs Vital Sign Reading Time Taken Comments Blood Pressure 123/71 12/17/2024 11:39 AM CDT Pulse 71 12/17/2024 11:39 AM CDT Temperature 36.7 C (98 F) 12/13/2024 1:30 PM CDT Respiratory Rate 16 12/17/2024 11:39 AM CDT Oxygen Saturation 97% 12/13/2024 1:30 PM CDT Inhaled Oxygen Concentration - - Weight 78.1 kg (172 lb 1.6 oz) 12/13/2024 1:30 P M CDT Height 170.2 cm (5' 7) 12/13/2024 1:30 PM CDT Body Mass Index 26.95 12/13/2024 1:30 PM CDT Plan of Treatment Upcoming Encounters Date Type Department Care Team (Late st Contact Info) Description 12/31/2024 11:00 AM CDT Appointment [facility] [address] [facility] [place] [address] 01/03/2025 9:30 AM CDT Appointment [facility] [address] [place] [address] 01/03/2025 10:00 AM CDT Office Visit [place] [address] [address] [address] Marianne Browning MD [address] [facility] [address] [place] [address] 01/03/2025 10:30 AM CDT Appointment [facility] [address] [place] [address] Rd [facility] [place] [address] 01/04/2025 11:30 AM CDT Appointment [address] [place] [address] [place] [address] 01/05/2025 11:30 AM CDT Appointment [address] [place] [address] 01/21/2025 8:00 AM CDT Appointment [facility] [address] [facility] [place] [address] Health Maintenance Due Date Last Done Comments HIV for age 15-65 1978 Pneumococcal series for age 50+ (1 of 2 - PCV) 1982 Zoster (shingles) series for age 50+ (1 of 2) 1982 COVID-19 vaccine series (3 - Moderna risk series) 09/08/2020 08/11/2020, 07/14/2020 Colonoscopy through age 75 06/02/202206/02, 06/02/2019, 06/02/2019, Additional history exists Depression screening for age 12+ 07/19/2022 07/19/2021, 07/18/2021, 07/05/2020, Additional history exists RSV vaccine for adults or (1 - Risk 60-74 years 1-dose series) 2023 Influenza Vaccine (#1) 2024 Lipids for age 45-75 07/05/2025 07/05/2020, 04/22/19 20 BMI (ht and wt on same day) for age 18+ 08/24/2025 08/24/2024, 02/19/2023, 01/31/2022, Additional history exists Low Dose CT (for lung CA) age 50-80 12/17/2025 12/17/2024, 09/16/2024, 07/06/2024, Additional history exists Tetanus booster 04/22/2029 04/22/2019, 03/21 (Declined) Hepatitis C screening for age 18-79 Completed 11/26/2023, 10/09/2023 Hepatitis B series for 19+ Aged Out N o longer eligible based on patient's age to complete this topic Medical Devices Implanted Type Area Meteorological Aide Device Identifier Shelf Expiration Date Model / Serial / Lot Port Med Profile Mri Plst W/8fr 1 Lmn - [id number] Implanted:Qty: 1 on 04/20/2024 by Manolo Reynoso MD at [facility] N/A: Chest [employer] 01/18/2025 [id number] / / [id number] Dura Neuro 4x5in Duragen Plusnon-Sut - [id number] Implanted:Qty: 1 on 12/02/2024 by Laurent Olmos MD at [facility] Left: Cranium Integra [employer]ar 01/18/2027 [id number] / / [id number] Leoncio Hole Cover Neuro 17mm Matrixneuro - [id number] Implanted:Qty: 3 on 12/02/2024 by Laurent Olmos MD at [facility] Left: Cranium J And J Depuy CMF [id number] / / Screw Neuro 4mm Matrixneuro Slf Drill Titnm - [id number] Implanted:Qty: 2 on 12/02/2024 by Laurent Olmos MD at [facility] Left: Cranium J And J Depuy CMF [id number] .01 / / Screw Neuro 5mm Matrixneuro Slf Drill Titnm - [id number] Implanted:Qty: 16 on 12/02/2024 by Laurent Olmos MD at [facility] Left: Cranium J And J Depuy CMF [id number] .01 / / Procedures Procedure Name Priority Date/Time Associated Diagnosis Comments CT CHEST W Routine 12/17/2024 11:34 AM CDT Malignant neoplasm of lung (HC) SCAN-CARDIAC STRIP 12/05/2024 8: 00 AM CDT GLUCOSE METER Timed 12/05/2024 7:30 AM CDT CBC W PLT NO DIFF Early AM 12/05/2024 4:1 9 AM CDT BASIC METABOLIC PANEL Early AM 12/05/2024 4:19 AM CDT MAGNESIUM Early AM 12/05/2024 4:19 AM CDT GLUCOSE METER Timed 12/04/2024 9:09 PM CDT SCAN-CARDIAC STRIP 12/04/2024 8: 38 PM CDT GLUCOSE METER Timed 12/04/2024 5:09 PM CDT GLUCOSE METER Timed 12/04/2024 11:05 AM CDT SCAN-CARDIAC STRIP 12/04/2024 8: 00 AM CDT GLUCOSE METER Timed 12/04/2024 7:46 AM CDT CBC W PLT NO DIFF Early AM 12/04/2024 3:1 8 AM CDT BASIC METABOLIC PANEL Early AM 12/04/2024 3:18 AM CDT MAGNESIUM Early AM 12/04/2024 3:18 AM CDT GLUCOSE METER Timed 12/03/2024 9:03 PM CDT SCAN-CARDIAC STRIP 12/03/2024 8: 05 PM CDT GLUCOSE METER Timed 12/03/2024 3:47 PM CDT GLUCOSE METER Timed 12/03/2024 11:16 AM CDT GLUCOSE METER Timed 12/03/2024 7:44 AM CDT CBC WITH AUTO DIFFERENTIAL Early AM 12/03/2024 5:30 AM CDT CBC WITH AUTO DIFFERENTIAL Early AM 12/03/2024 5:30 AM CDT BASIC METABOLIC PANEL Early AM 12/03/2024 5:30 AM CDT MAGNESIUM Early AM 12/03/2024 5:30 AM CDT GLUCOSE METER Timed 12/03/2024 5:19 AM CDT SCAN-CARDIAC STRIP 12/03/2024 2: 01 AM CDT GLUCOSE METER Timed 12/02/2024 11:52 PM CDT MR HEAD BRAIN WWO AARON 12/02/2024 11: 30 PM CDT PATH TISSUE EXAM Today 12/02/2024 7:05 PM CDT ENDOTRACHEAL TUBE Routine 12/02/2024 5:3 9 PM CDT ENDOTRACHEAL TUBE Routine 12/02/2024 5:3 9 PM CDT ENDOTRACHEAL TUBE Routine 12/02/2024 5:3 9 PM CDT BEDSIDE US STUDY ARCHIVE Routine 12/02/2024 5:10 PM CDT CRANIOTOMY REMOVAL TUMOR STEALTH GUIDED Class D Urgent: Inpt requiring surgery 12/02/2024 3:45 PM CDT BRAIN TUMOR Case Notes 1200 180 MIN STEALTH (old stealth machine- Per Lorelei)Coverage confirmed with Louie (aubrey) via phone 12/01 ANW HCHG KIT PR20 Routine 12/02/2024 3:06 PM CDT HCHG KIT PR5 Routine 12/02/2024 3:06 PM CDT HCHG DRSG PR5 Routine 12/02/2024 3:06 PM CDT [facility] DRSG PR1 Routine 12/02/2024 3:06 PM CDT HCHG TUBING PR20 Routine 12/02/2024 3:06 PM CDT HCHG TUBING PR1 Routine 12/02/2024 3:06 PM CDT HC ANES ARTERIAL CATH FOR SAMPLE MONITOR TRANS Routine 12/02/2024 3:06 PM CDT HC ANES US GUIDE FOR VASC ACCESS Routine 12/02/2024 3:06 PM CDT BEDSIDE US STUDY ARCHIVE Preop 12/02/2024 2:02 PM CDT GLUCOSE METER Timed 12/02/2024 12:14 PM CDT GLUCOSE METER Timed 12/02/2024 9:25 AM CDT SCAN-CARDIAC STRIP 12/02/2024 9: 15 AM CDT PROTIME-INR Early AM 12/02/2024 5:35 AM CDT APTT Early AM 12/02/2024 5:35 AM CDT CBC W PLT NO DIFF Early AM 12/02/2024 5:3 5 AM CDT MAGNESIUM Early AM 12/02/2024 5:35 AM CDT CREATININE Early AM 12/02/2024 5:35 AM CDT POTASSIUM Early AM 12/02/2024 5:35 AM CDT SODIUM Early AM 12/02/2024 5:35 AM CDT GLUCOSE METER Timed 12/01/2024 9:09 PM CDT GLUCOSE METER Timed 12/01/2024 4:26 PM CDT POTASSIUM STAT 12/01/2024 3:22 PM CDT US VENOUS LOWER EXTREMITY BILATERAL Routine 12/01/2024 3:00 PM CDT TYPE & SCREEN Today 12/01/2024 1:46 PM CDT POTASSIUM Timed 12/01/2024 1:46 PM CDT GLUCOSE METER Timed 12/01/2024 12:04 PM CDT SCAN-CARDIAC STRIP 12/01/2024 10 :06 AM CDT GLUCOSE METER Timed 12/01/2024 9:[address] HEAD BRAIN WO Routine 12/01/2024 7:36 AM CDT RED CELL MORPHOLOGY Timed 12/01/2024 5 :55 AM CDT PLATELET ESTIMATE Timed 12/01/2024 5:5 5 AM CDT CBC WITH AUTO DIFFERENTIAL Early AM 12/01/2024 5:55 AM CDT CBC WITH AUTO DIFFERENTIAL Early AM 12/01/2024 5:55 AM CDT BASIC METABOLIC PANEL Early AM 12/01/2024 5:55 AM CDT MAGNESIUM Early AM 12/01/2024 5:55 AM CDT GLUCOSE METER Timed 11/30/2024 9:37 PM CDT GLUCOSE METER Timed 11/30/2024 6:36 PM CDT SCAN-CARDIAC STRIP 11/30/2024 4: 13 PM CDT MAGNESIUM Timed 11/30/2024 1:17 PM CDT GLUCOSE METER Timed 11/30/2024 10:06 AM CDT GLUCOSE METER Timed 11/30/2024 5:51 AM CDT MAGNESIUM Early AM 11/30/2024 4:06 AM CDT PLATELET COUNT Early AM 11/30/2024 4:06 AM CDT HEMOGLOBIN Early AM 11/30/2024 4:06 AM CDT WHITE BLOOD COUNT Early AM 11/30/2024 4:0 6 AM CDT CREATININE Early AM 11/30/2024 4:06 AM CDT POTASSIUM Early AM 11/30/2024 4:06 AM CDT SODIUM Early AM 11/30/2024 4:[address] HEAD BRAIN WO AARON 11/30/2024 4:00 AM CDT GLUCOSE METER Timed 11/30/2024 12:01 AM CDT GLUCOSE METER Timed 11/29/2024 9:11 PM CDT MAGNESIUM STAT 11/29/2024 8:56 PM CDT MAGNESIUM STAT 11/29/2024 8:34 PM CDT SCAN-CARDIAC STRIP 11/29/2024 8: 20 PM CDT APTT STAT 11/29/2024 2:15 PM CDT PROTIME-INR STAT 11/29/2024 2:15 PM CDT MR HEAD BRAIN WWO STAT 11/29/2024 1:3 3 PM CDT Small cell carcinoma of lung, unspecified laterality, unspecified part of lung (HC) COMP METABOLIC PANEL STAT 11/29/2024 10:09 AM CDT ONCOLOGY ABSOLUTE NEUTROPHIL COUNT STAT 11/29/2024 10:09 AM CDT SCAN-CARDIAC STRIP 11/29/2024 12 :00 AM CDT SCAN-CARDIAC STRIP 11/29/2024 12 :00 AM CDT MR SPINE THORACIC WWO Routine 10/27/2024 8:30 AM CDT Small cell lung carcinoma, left (HC) RED CELL MORPHOLOGY Timed 10/17/2024 6 :04 AM CDT PLATELET ESTIMATE Timed 10/17/2024 6:0 4 AM CDT MANUAL DIFFERENTIAL Timed 10/17/2024 6 :04 AM CDT CBC WITH AUTO DIFFERENTIAL Early AM 10/17/2024 6:04 AM CDT PHOSPHORUS Early AM 10/17/2024 6:04 AM CDT MAGNESIUM Early AM 10/17/2024 6:04 AM CDT BASIC METABOLIC PANEL Early AM 10/17/2024 6:04 AM CDT CBC WITH AUTO DIFFERENTIAL Early AM 10/17/2024 6:04 AM CDT SCAN-CARDIAC STRIP 10/16/2024 8: 57 AM CDT RED CELL MORPHOLOGY Timed 10/16/2024 5 :30 AM CDT PLATELET ESTIMATE Timed 10/16/2024 5:3 0 AM CDT MANUAL DIFFERENTIAL Timed 10/16/2024 5 :30 AM CDT CBC WITH AUTO DIFFERENTIAL Early AM 10/16/2024 5:30 AM CDT CORTISOL TOTAL Timed 10/16/2024 5:30 AM CDT RENAL FUNCTION PANEL Early AM 10/16/2024 5:30 AM CDT CBC WITH AUTO DIFFERENTIAL Early AM 10/16/2024 5:30 AM CDT SCAN-CARDIAC STRIP 10/15/2024 8: 00 PM CDT PROTEIN/CREAT RATIO,URINE STAT 10/15/2024 12:46 PM CDT SCAN-CARDIAC STRIP 10/15/2024 8: 16 AM CDT RED CELL MORPHOLOGY AARON 10/15/2024 5 :46 AM CDT PLATELET ESTIMATE AARON 10/15/2024 5:4 6 AM CDT MANUAL DIFFERENTIAL AARON 10/15/2024 5 :46 AM CDT TSH AARON 10/15/2024 5:46 AM CDT CBC WITH AUTO DIFFERENTIAL AARON 10/15/2024 5:46 AM CDT CBC WITH AUTO DIFFERENTIAL AARON 10/15/2024 5:46 AM CDT BASIC METABOLIC PANEL Early AM 10/15/2024 5:46 AM CDT CBC W PLT NO DIFF Early AM 10/15/2024 5:4 6 AM CDT SCAN-CARDIAC STRIP 10/15/2024 5: 37 AM CDT PLATELET ORDER Today 10/15/2024 2:41 AM CDT PLATELET EA UNIT Today 10/15/2024 2:40 AM CDT URINALYSIS MICROSCOPIC STAT 10/15/2024 1:00 AM CDT UA W/ SEDIMENT EXAM REFLEXED PER CRITERIA STAT 10/15/2024 1:00 AM CDT TYPE & SCREEN STAT 10/14/2024 11:[address] ABDOMEN PELVIS WO STAT 10/14/2024 11:17 PM CDT XR CHEST 1 VIEW PORTABLE STAT 10/14/2024 10:19 PM CDT BLOOD CULTURE STAT 10/14/2024 9:47 PM CDT BLOOD CULTURE STAT 10/14/2024 9:37 PM CDT CWS PATH REVIEW HEMATOLOGY STAT 10/14/2024 9:30 PM CDT RED CELL MORPHOLOGY STAT 10/14/2024 9 :30 PM CDT PLATELET ESTIMATE STAT 10/14/2024 9:3 0 PM CDT MANUAL DIFFERENTIAL STAT 10/14/2024 9 :30 PM CDT CBC WITH AUTO DIFFERENTIAL STAT 10/14/2024 9:30 PM CDT TROPONIN T (HS) ONE TIME STAT 10/14/2024 9:30 PM CDT PROCALCITONIN STAT 10/14/2024 9:30 PM CDT PROTIME-INR STAT 10/14/2024 9:30 PM CDT COMP METABOLIC PANEL STAT 10/14/2024 9:30 PM CDT CBC WITH AUTO DIFFERENTIAL STAT 10/14/2024 9:30 PM CDT LACTATE VENOUS STAT 10/14/2024 9:30 PM CDT EKG 12 LEAD STAT 10/14/2024 9:23 PM CDT CRITICAL CARE PROVIDED Routine 10/14/2024 9:[address] SKULL BASE TO MID THIGH SUBSEQUENT TREAT AARON 10/07/2024 9:43 AM CDT Malignant neoplasm of upper lobe, left bronchus or lung (HC) ANTI HCV Routine 11/26/2023 4:05 PM CDT Small cell lung cancer (HC) LIPID PANEL W REFLEX MEASURED LDL Routine 07/05/2020 3:58 PM CDT HTN (hypertension) COLONOSCOPY SCREENING Routine 06/02/2019 10:39 AM ACCESS COORDINATOR Screening for colon cancer from Last 3 Months or Most Recently Relevant to Health Maintenance Results * CT CHEST W (12/17/2024 11:34 AM CDT) Anatomical Region Laterality Modality CHEST, THORAX, HEART Computed To mography 12/17/2024 11:3 4 AM CDT Impressions 12/17/2024 4:16 PM CDT 1. Decrease in size of left upper lobe mass. 2. Slight nodularity along the anterior pleural surface left hemithorax stable to slightly decreased as compared to previous. Narrative 12/17/2024 4:16 PM CDT For Patients: As a result of the Century Cures Act, medical imaging exams and procedure reports are released immediately into your electronic medical record. You may view this report before your referring provider. If you have questions, please contact your health care provider. EXAM: CT CHEST W LOCATION: [facility] DATE: 12/17/2024 INDICATION: Lung cancer. COMPARISON: CT chest 09/16/2024. PET scan 10/07/2024. TECHNIQUE: CT chest with IV contrast. Multiplanar reformats were obtained. Dose reduction techniques were used. CONTRAST: Omnipaque 350 75 mL FINDINGS: LUNGS AND PLEURA: There has been decrease in size of the mineralized mass in the left upper lobe now measuring approximately 4.5 x 2.8 cm transverse and AP dimensions image 37 previously 5.5 x 4.4 cm. Broad interface with the pleural surface extending to the left lung apex is again noted. There is some infiltrate along the inferior margin of this mass presumably posttreatment change. Advanced emphysematous change. Small amount of pleural thickening along the anterior aspect of the left hemithorax stable to slightly decreased from previous. No new nodules or masses. No effusions. Advanced emphysematous change. MEDIASTINUM/AXILLAE: No abnormal mediastinal or hilar adenopathy by CT criteria. CORONARY ARTERY CALCIFICATION: Severe. UPPER ABDOMEN: Normal. MUSCULOSKELETAL: No skeletal lesions seen. Procedure Note Nabor Arriaga MD - 12/17/2024 For Patients: As a result of the Cures Act, medical imagingexams and procedure reports are released immediately into your electronicmedical record. You may view this report before your referring provider.If you have questions, please contact your health care provider. EXAM: CT CHEST W LOCATION: [facility] DATE: 12/17/2024 INDICATION: Lung cancer. COMPARISON: CT chest 09/16/2024. PET scan 10/07/2024. TECHNIQUE: CT chest with IV contrast. Multiplanar reformats were obtained.Dose reduction techniques were used. CONTRAST: Omnipaque 350 75 mL FINDINGS: LUNGS AND PLEURA: There has been decrease in size of the mineralized massin the left upper lobe now measuring approximately 4.5 x 2.8 cm transverseand AP dimensions image 37 previously 5.5 x 4.4 cm. Broad interface withthe pleural surface extending to the left lung apex is again noted. Thereis some infiltrate along the inferior margin of this mass presumablyposttreatment change. Advanced emphysematous change. Small amount ofpleural thickening along the anterior aspect of the left hemithorax stableto slightly decreased from previous. No new nodules or masses. No effusions. Advanced emphysematous change. MEDIASTINUM/AXILLAE: No abnormal mediastinal or hilar adenopathy by CTcriteria. CORONARY ARTERY CALCIFICATION: Severe. UPPER ABDOMEN: Normal. MUSCULOSKELETAL: No skeletal lesions seen. IMPRESSION: 1. Decrease in size of left upper lobe mass. 2. Slight nodularity along the anterior pleural surface left hemithoraxstable to slightly decreased as compared to previous. Marleen Snider APRN, SUPERVISOR FUR FLOOR WORKER CT Fin al Result * SCAN-CARDIAC STRIP (12/05/2024 8:00 AM CDT) Scanner OTHER Final Result * GLUCOSE METER (12/05/2024 7:30 AM CDT) Only the most recent of23 resultswithin the time period is included. GLUCOSE METER 98 65 - 100 mg/dL 12/05/2024 7:39 AM [facility] Blood BLOOD SPECIMEN / Unknown 12/05/2024 7:30 AM CDT 12/05/2024 7:39 AM CDT Luis Joy MD CHEMISTRY Francy l Result [facility] SENDOUT [place]NAL [address]IP [phone] [place] [address] * (ABNORMAL) CBC W PLT NO DIFF (12/05/2024 4:19 AM CDT) Only the most recent of4 resultswithin the time period is included. WHITE BLOOD COUNT 6.7 4.5 - 11.0 thou/cu mm 12/05/2024 4:53 AM [facility] RED BLOOD COUNT 3.68(L) 4.30 - 5.90 mil/cu mm 12/05/2024 4:53 AM [facility] HEMOGLOBIN 11.3(L) 13.5 - 17.5 g/dL 12/05/2024 4:53 AM [facility] HEMATOCRIT 34.9(L) 37.0 - 53.0 % 12/05/2024 4:53 AM [facility] MCV 95 80 - 100 fL 12/05/2024 4:53 AM [facility] MCH 30.7 26.0 - 34.0 pg 12/05/2024 4:53 AM [facility] MCHC 32.4 32.0 - 36.0 g/dL 12/05/2024 4:53 AM [facility] RDW 15.4 11.5 - 15.5 % 12/05/2024 4:53 AM [facility] PLATELET COUNT 111(L) 140 - 440 thou/cu mm 12/05/2024 4:53 AM [facility] MPV 9.8 6.5 - 11.0 fL 12/05/2024 4:53 AM [facility] NRBC 0.0 % 12/05/2024 4:53 AM CDT [facility] ABS NRBC 0.0 thou /cu mm 12/05/2024 4:53 AM CDT [facility] Blood BLOOD SPECIMEN / Unknown Line/Port / Unknown 12/05/2024 4:19 AM CDT 12/05/2024 4:51 AM CDT us Kaitlin Dorman NP HEMATOLOGY Final Result Performing Organization Address City/[facility]/ZIP Co de Phone Number [facility] SENDOUT INTERNAL ZIP [phone] [place] [phone] * MAGNESIUM (12/05/2024 4:19 AM CDT) Only the most recent of10 resultswithin the time period is included. MAGNESIUM 2.0 1.6 - 2.4 mg/dL 12/05/2024 5:13 AM CDT [facility] Blood BLOOD SPECIMEN / Unknown Line/Port / Unknown 12/05/2024 4:19 AM CDT 12/05/2024 4:51 AM CDT us Davian Ahmadi MD CHEMISTRY Fi nal Result Performing Organization Address [facility]/ZIP Co de Phone Number [facility] SENDOUT INTERNAL ZIP [address] [place] [phone] * (ABNORMAL) BASIC METABOLIC PANEL (12/05/2024 4:19 AM CDT) Only the most recent of6 resultswithin the time period is included. SODIUM 141 136 - 145 mmol/L 12/05/2024 5:13 AM CDT [facility] POTASSIUM 3.9 3.5 - 5.1 mmol/L 12/05/2024 5:13 AM CDT [facility] CHLORIDE 107 98 - 107 mmol/L 12/05/2024 5:13 AM CDT [facility] CO2,TOTAL 24 22 - 29 mmol/L 12/05/2024 5:13 AM CDT [facility] ANION GAP 10 5 - 18 12/05/2024 5:13 AM T [facility] GLUCOSE 104(H) 70 - 99 mg/dL 12/05/2024 5:13 AM T [facility] CALCIUM 8.4(L) 8.8 - 10.4 mg/dL 12/05/2024 5:13 AM T [facility] Comment: Reference ranges for this test were updated on 02/24/2024 to reflect our healthy population more accurately. Reference range changes are not retroactively applied to results, but previous results using the same methodology can be interpreted in the context of the new reference range. BUN 23 8 - 23 mg/dL 12/05/2024 5:13 AM T [facility] CREATININE 0.89 0.70 - 1.20 mg/dL 12/05/2024 5:13 AM [facility] BUN/CREAT RATIO 26(H) 10 - 20 5:13 AM T [facility] eGFR >90 >90 mL/min/1. 73m2 12/05/2024 5:13 AM [facility] Comment:As of 2021, eG FR is calculated by the CKD-EPI creatinine equation without race adjustment. eGFR can be influenced by muscle mass, exercise, and diet. The reported eGFR is an estimation only and is only applicable if the renal function is stable. Blood BLOOD SPECIMEN / Unknown Line/Port / Unknown 12/05/2024 4:19 AM CDT 12/05/2024 4:51 AM CDT us Kaitlin Dorman NP CHEMISTRY Final Result Performing Organization Address City/State/[facility] Co de Phone Number [facility] SENDOUT INTERNAL [facility] [phone] [place] [address] * SCAN-CARDIAC STRIP (12/04/2024 8:38 PM CDT) us Scanner OTHER Final Result * SCAN-CARDIAC STRIP (12/04/2024 8:00 AM CDT) us Scanner OTHER Final Result * SCAN-CARDIAC STRIP (12/03/2024 8:05 PM CDT) us Scanner OTHER Final Result * (ABNORMAL) CBC WITH AUTO DIFFERENTIAL (12/03/2024 5:30 AM CDT) Only the most recent of6 resultswithin the time period is included. WHITE BLOOD COUNT 11.1(H) 4.5 - 11.0 thou/cu mm 12/03/2024 5:55 AM [facility] RED BLOOD COUNT 3.86(L) 4.30 - 5.90 mil/cu mm 12/03/2024 5:55 AM [facility] HEMOGLOBIN 11.8(L) 13.5 - 17.5 g/dL 12/03/2024 5:55 AM [facility] HEMATOCRIT 37.0 37.0 - 53.0 % 12/03/2024 5:55 AM [facility] MCV 96 80 - 100 fL 12/03/2024 5:55 AM [facility] MCH 30.6 26.0 - 34.0 pg 12/03/2024 5:55 AM [facility] MCHC 31.9(L) 32.0 - 36.0 g/dL 12/03/2024 5:55 AM [facility] RDW 15.7(H) 11.5 - 15.5 % 12/03/2024 5:55 AM [facility] PLATELET COUNT 106(L) 140 - 440 thou/cu mm 12/03/2024 5:55 AM [facility] MPV 9.8 6.5 - 11.0 fL 12/03/2024 5:55 AM [facility] NRBC 0.0 % 12/03/2024 5:55 AM [facility] ABS NRBC 0.0 thou /cu mm 12/03/2024 5:55 AM [facility] % NEUT 86.7 % 12/03/2024 5:55 AM [facility] % LYMPH 6.6 % 12/03/2024 5:55 AM [facility] % MONO 5.9 % 12/03/2024 5:55 AM T [facility] % EOS 0.0 % 12/03/2024 5:55 AM T [facility] % BASO 0.3 % 12/03/2024 5:55 AM [facility] % IMMATURE GRAN (METAS,MYELOS,WY OS) 0.5 % 12/03/2024 5:55 AM CDT [facility] ABSOLUTE NEUTROPHILS 9.6(H) 1.7 - 7.0 thou/cu mm 12/03/2024 5:55 AM CDT [facility] ABSOLUTE LYMPHOCYTES 0.7(L) 0.9 - 2.9 thou/cu mm 12/03/2024 5:55 AM CDT [facility] ABSOLUTE MONOCYTES 0.7 <0.9 thou/cu mm 12/03/2024 5:55 AM CDT [facility] ABSOLUTE EOSINOPHILS 0.0 <0.5 thou/cu mm 12/03/2024 5:55 AM CDT [facility] ABSOLUTE BASOPHILS 0.0 <0.3 thou/cu mm 12/03/2024 5:55 AM CDT [facility] ABSOLUTE IMMATURE GRANULOCYTES(MET ,MYELOS,PROS) 0.1 <0.3 thou/cu mm 12/03/2024 5:55 AM CDT [facility] Blood BLOOD SPECIMEN / Unknown Line/Port / Unknown 12/03/2024 5:30 AM CDT 12/03/2024 5:34 AM CDT us Laurent Olmos MD HEMATOLOGY Final Result [facility] SENDOUT INTERNAL ZIP [phone] [place] [phone] * SCAN-CARDIAC STRIP (12/03/2024 2:01 AM CDT) us Scanner OTHER Final Result * MR Brain w/wo Contrast (12/02/2024 11:30 PM CDT) Only the most recent of2 resultswithin the time period is included. Anatomical Region Laterality Modality BRAIN, HEAD Magnetic Resonan ce 12/02/2024 11:3 0 PM CDT Impressions 12/03/2024 12:41 AM CDT 1. Interval left-sided frontoparietal/pterional craniotomy for debulking/resection [...] to right midline shift, previously 6 mm. Narrative 12/03/2024 12:41 AM CDT For Patients: As a result of the Century Cures Act, medical imaging exams and procedure reports are released immediately into your electronic medical record. You may view this report before your referring provider. If you have questions, please contact your health care provider. EXAM: MR HEAD BRAIN WITHOUT AND WITH CONTRAST LOCATION: [facility] DATE: 12/02/2024 INDICATION: Postop craniotomy. COMPARISON: 11/29/2024. CONTRAST: Clariscan 15 mL. TECHNIQUE: Routine multiplanar multisequence head MRI without and with intravenous contrast. FINDINGS: INTRACRANIAL CONTENTS: No acute or subacute infarct. Interval left-sided frontoparietal/pterional craniotomy and debulking/resection of the previously noted dural-based mass lesion overlying the left frontal operculum and anterior left sylvian fissure. There is irregular smooth and nodular/wispy enhancement along the deep margins of the resection cavity, some of which could be postoperative though residual tumor is possible. Findings suspicious for invasion of adjacent brain parenchyma. There is extensive vasogenic edema in the left frontal lobe, left frontal/temporal junction and left temporal stem and left temporal lobe. Overall mass effect has improved, with a 4 mm left to right midline shift, previously 6 mm.. Small volume extra-axial fluid and gas deep to the craniotomy. Otherwise, normal parenchymal signal. No hydrocephalus. Normal position of the cerebellar tonsils. SELLA: No abnormality accounting for technique. OSSEOUS STRUCTURES/SOFT TISSUES: Normal marrow signal. The major intracranial vascular flow-voids are maintained. ORBITS: No abnormality accounting for technique. SINUSES/MASTOIDS: No paranasal sinus mucosal disease. No middle ear or mastoid effusion. Procedure Note Jose Velez MD - 12/03/2024 For Patients: As a result of the Century Cures Act, medical imagingexams and procedure reports are released immediately into your electronicmedical record. You may view this report before your referring provider.If you have questions, please contact your health care provider. EXAM: MR HEAD BRAIN WITHOUT AND WITH CONTRAST LOCATION: [facility] DATE: 12/02/2024 INDICATION: Postop craniotomy. COMPARISON: 11/29/2024. CONTRAST: Clariscan 15 mL. TECHNIQUE: Routine multiplanar multisequence head MRI without and withintravenous contrast. FINDINGS: INTRACRANIAL CONTENTS: No acute or subacute infarct. Interval left-sidedfrontoparietal/pterional craniotomy and debulking/resection of thepreviously noted dural-based mass lesion overlying the left frontaloperculum and anterior left sylvian fissure. There is irregular smooth andnodular/wispy enhancement along the deep margins of the resection cavity,some of which could be postoperative though residual tumor is possible.Findings suspicious for invasion of adjacent brain parenchyma. There isextensive vasogenic edema in the left frontal lobe, left frontal/temporaljunction and left temporal stem and left temporal lobe. Overall masseffect has improved, with a 4 mm left to right midline shift, previously 6mm.. Small volume extra-axial fluid and gas deep to the craniotomy.Otherwise, normal parenchymal signal. No hydrocephalus. Normal position ofthe cerebellar tonsils. SELLA: No abnormality accounting for technique. OSSEOUS STRUCTURES/SOFT TISSUES: Normal marrow signal. The majorintracranial vascular flow-voids are maintained. ORBITS: No abnormality accounting for technique. SINUSES/MASTOIDS: No paranasal sinus mucosal disease. No middle ear ormastoid effusion. IMPRESSION: 1. Interval left-sided frontoparietal/pterional craniotomy fordebulking/resection of the previously noted dural-based mass lesionoverlying the left frontal operculum and anterior left sylvian fissure. 2. There is irregular smooth and nodular/wispy enhancement along the deepmargins of the resection cavity, some of which could be postoperativethough residual tumor is possible. Attention on follow-up. 3. Stable extensive vasogenic edema in the left frontal lobe, leftfrontal/temporal junction and left temporal stem and left temporal lobe. 4. Overall mass effect has improved, with a 4 mm left to right midlineshift, previously 6 mm. Laurent Olmos MD MR Final Result * PATH TISSUE EXAM (12/02/2024 7:05 PM CDT) Case Report Pathology Report Case: [id number] Authorizing Provider: Laurent Olmos, Collected: 12/02/20241904 Ordering Location: [facility] Received: 12/02/20241908 Pathologist: Wenceslao Luke MD Specimen: Brain Tumor, Left frontal tumor 12/07/2024 2:06 PM CDT [facility] Final Diagnosis A) BRAIN, LEFT FRONTAL LOBE TUMOR, RESECTION: 1. Metastatic malignancy, consistent with small cell carcinoma of lung 2. Minute meningioma (COLLECTION DEVELOPMENT LIBRARIAN WHO grade 1), incidental 12/07/2024 2:06 PM CDT [facility] at 1406 CDT Comment Case seen in consultation with Dr. Potter. LUNG ANCILLARY TESTING PROTOCOL This patient's sample does NOT meet [facility] criteria* for reflex testing. If there is a need for ancillary tests, please contact the [facility] ([phone]). Slides available for [facility] NGS testing: A1-2, A1-3 Blocks available for [facility] NGS testing: A1 - A6 Blocks available for tests using immunostains and/or FISH (requiring 100 cells): A1 - A6 Blocks available for send out (outside vendor) testing requiring 5 x 5 mm of tumor: A1 - A6 *[facility] reflex testing criteria: Stage IV pulmonary non-small cell carcinoma OR Tumor size >= 4 cm, or lymph node involvement, pulmonary non-small cell carcinoma, neoadjuvant setting OR Resected stage IB - IIIB pulmonary non-small cell carcinoma, adjuvant setting (if not previously performed) - [facility] Lung NGS panel (EGFR, ALK, ROS1, RET, MET, KRAS, BRAF, HRAS, NRAS, ERBB2, NTRK1/2/3) - [facility] PD-L1 SP263 - If RNA NGS fusion analysis fails, FISH for ALK and ROS1 fusion will be attempted 12/07/2024 2:06 PM CDT [facility] Clinical Information Left frontal tumor. History of small cell carcinoma of lung. 12/07/2024 2:06 PM CDT [facility] Gross Description A) Received fresh, labeled with patients name and left frontal tumor is a 6.1 x 4.4 cm dietrich-pink, smooth portion of membranous tissue, consistent with dura. There circumferential edge of dura is inked blue. Adherent to the dura is a 4.8 x 4.2 x 2.5 cm dietrich-brown, exophytic, friable mass, which is 0.1 cm from the circumferential dural margin. Two touch preps are performed for intraoperative consultation. Manager Fine sections are submitted as follows: 1-3. Mass with nearest dural edge (blue), perpendicular 4-5. Additional mass with attached dura 6. Uninvolved dura The specimen was placed in formalin at 1930 on 12/02/2024. MARTHA 12/03/2024 12/07/2024 2:06 PM T [facility] Intraoperative Consultation A) BRAIN, LEFT FRONTAL TUMOR, RESECTION, INTRAOPERATIVE CONSULTATION WITH CYTOLOGY PREPARATION: [Number of cytology preparations reviewed: 2] 1. Positive for malignancy; metastatic small cell carcinoma Jenaro Silver MD, 12/02/2024 7:27 PM Intraoperative consultation, which may have included frozen section preparation, gross specimen examination, and/or cytology touch imprints/smears, was performed by a pathologist during the surgical procedure. This testing was performed at: [facility] [address] [place] [address] 12/07/2024 2:06 PM T [facility] Microscopic Description The final diagnosis is based on microscopic examination of appropriate sections of all specimens. 12/07/2024 2:06 PM CDT [facility] Additional Information Interpreted at [facility] Laboratory - [address] [address] 12/07/2024 2:06 PM T [facility] Tissue (Brain Tumor) 12/02/2024 7:05 PM CDT 12/02/2024 7:09 PM CDT us Laurent Olmos MD PATHOLOGY/CYTOLOGY Tashi mcnally Result [facility] [address] [place] [address], [facility] SENDOUT INTERNAL ZIP [address] [place] [address] * [facility] TUBE PR1, [facility] INSTRUMENT DISP PR10, [facility] STYLET PR1 (12/02/2024 5:39 PM CDT) Jannet Barlow CRNA - 12/02/2024 5:39 PM CDT Jannet Durán CRNA 12/02/2024 5:39 PM Procedure: ETT Patient location during procedure: OR ETT Properties Mask Ventilation: easy and oral airway Final Technique: video laryngoscopy Type: straight Location: oral Cuffed: yes Tube Size: 8.0 mm Stylet: yes Laryngoscope Blade: Glidescope Blade Size: 4 Cormack-Lehane Grade View: 1 Insertion Attempts: 1 Placement Verification: auscultation, end tidal CO2 and symmetrical chest wall movement Assessment: pharynx clear, atraumatic and dentition unchanged Secured at: 22 Measured From: teeth Difficulty: 0 (not difficult) us Jag Cortez MD ANESTHESIA PX NOTE ORDERA BLES Final Result * [facility] ANES US GUIDE FOR VASC ACCESS, [facility] ANES ARTERIAL CATH FOR SAMPLE MONITOR TRANS, [facility] TUBING PR1, [facility] TUBING PR20, [facility] DRSG PR1, [facility] DRSG PR5, [facility] KIT PR5, [facility] KIT PR20 (12/02/2024 3:06 PM CDT) Narrative Fannie Sutton MD - 12/02/2024 3:06 PM CDT Fannie Sutton MD 12/02/2024 3:07 PM Arterial Line Patient location during procedure: pre-op Start time: 12/02/2024 2:58 PM End time: 12/02/2024 3:03 PM Indications: lab sampling and monitoring Staffing Preanesthetic Checklist Completed: patient identified, risks and benefits discussed, consent obtained and timeout performed Arterial Line Patient position: supine. Comment:. Laterality: left Site: radial Local Anesthetic: lidocaine 1%. Ultrasound guidance: live ultrasound, ultrasound permanent image saved and sterile gel and probe cover used in ultrasound-guided central venous catheter insertion. Ultrasound Indication: arteriosclerosis Needle localization (ultrasound): selected vessel patent, anatomically normal, potential access sites evaluated and needle visualized entering selected vessel. Securement/dressing: Biopatch applied, line sutured in place, dressing applied. Comment: Supplemental O2: supplemental oxygen. Comment:. Vessel Back Order Clerk Additional supplies used to locate vessel: no Needle Catheter size: 20 G. Comment:. Catheter length: 12 cm. Comment: Events: no complications. us Fannie Sutton MD ANESTHESIA PX NOTE ORDER DALLIN Final Result * SCAN-CARDIAC STRIP (12/02/2024 9:15 AM CDT) us Scanner OTHER Final Result * SODIUM (12/02/2024 5:35 AM CDT) Only the most recent of2 resultswithin the time period is included. SODIUM 140 136 - 145 mmol/L 12/02/2024 6:08 AM CDT [facility] Blood BLOOD SPECIMEN / Unknown Non-Lab Venipuncture / Unknown 12/02/2024 5:35 AM CDT 12/02/2024 5:42 AM CDT us Davian Ahmadi MD CHEMISTRY Fi nal Result Performing Organization Address City/[facility]/ZIP Co de Phone Number [facility] SENDOUT INTERNAL ZIP [phone] [place] [phone] * POTASSIUM (12/02/2024 5:35 AM CDT) Only the most recent of4 resultswithin the time period is included. POTASSIUM 4.1 3.5 - 5.1 mmol/L 12/02/2024 6:08 AM CDT [facility] Blood BLOOD SPECIMEN / Unknown Non-Lab Venipuncture / Unknown 12/02/2024 5:35 AM CDT 12/02/2024 5:42 AM CDT us Davian Ahmadi MD CHEMISTRY Fi nal Result [facility] SENDOUT [place]NAL [address] [phone] [place] [address] * (ABNORMAL) CREATININE (12/02/2024 5:35 AM CDT) Only the most recent of2 resultswithin the time period is included. eGFR 88(L) >90 mL/min/1.7 3m2 12/02/2024 6:08 AM CDT [facility] Comment:As of 2021, eG FR is calculated by the CKD-EPI creatinine equation without race adjustment. eGFR can be influenced by muscle mass, exercise, and diet. The reported eGFR is an estimation only and is only applicable if the renal function is stable. CREATININE 0.98 0.70 - 1.20 mg/dL 12/02/2024 6:08 AM CDT [facility] Blood BLOOD SPECIMEN / Unknown Non-Lab Venipuncture / Unknown 12/02/2024 5:35 AM CDT 12/02/2024 5:42 AM CDT us Davian Ahmadi MD CHEMISTRY Fi nal Result [facility] SENDOUT INTERNAL [address] [address] [address] [place] [address] * APTT (12/02/2024 5:35 AM CDT) Only the most recent of2 resultswithin the time period is included. APTT 31 25 - 36 sec 12/02/2024 5:55 AM CDT [facility] Blood BLOOD SPECIMEN / Unknown Non-Lab Venipuncture / Unknown 12/02/2024 5:35 AM CDT 12/02/2024 5:42 AM CDT Narrative [facility] - 12/02/2024 5:55 AM CDT Therapeutic Range: 59-89 seconds us Kaitlin Dorman NP HEMATOLOGY Final Result [facility] SENDOUT INTERNAL ZIP [address] [address] [place] [address] * PROTIME-INR (12/02/2024 5:35 AM CDT) Only the most recent of3 resultswithin the time period is included. INR 0.9 <1.3 12/02/2024 5:55 AM CDT [facility] PROTIME 10.8 10.6 - 12.4 sec 12/02/2024 5:55 AM CDT [facility] Blood BLOOD SPECIMEN / Unknown Non-Lab Venipuncture / Unknown 12/02/2024 5:35 AM CDT 12/02/2024 5:42 AM CDT Narrative [facility] - 12/02/2024 5:55 AM CDT Therapeutic Range 2.0-3.0 for most anticoagulated patients 2.5-3.5 or 4.0 for high risk patients The INR is only used for patients on stable oral anticoagulant therapy. It makes no significant contribution to the diagnosis or treatment of patients whose Protime is prolonged for other reasons. INR results are increased when heparin levels exceed 1.0 U/mL, which corresponds to an aPTT >125 seconds if the patient is on UFH. Kaitlin Dorman NP HEMATOLOGY Final Result [facility] SENDOUT INTERNAL ZIP [address] [place] [address] * US VENOUS LOWER EXTREMITY BILATERAL (12/01/2024 3:00 PM CDT) Anatomical Region Laterality Modality LEGS, LEG L, LEG R Ultrasound 12/01/2024 3:00 PM CDT Impressions 12/01/2024 3:02 PM CDT No deep venous thrombosis in the bilateral lower extremities. Narrative 12/01/2024 3:02 PM CDT For Patients: As a result of the 21st Century Cures Act, medical imaging exams and procedure reports are released immediately into your electronic medical record. You may view this report before your referring provider. If you have questions, please contact your health care provider. EXAM: US VENOUS LOWER EXTREMITY BILATERAL LOCATION: [facility] DATE: 12/01/2024 INDICATION: Swelling COMPARISON: None. TECHNIQUE: Venous Duplex ultrasound of bilateral lower extremities with and without compression, augmentation and duplex. Color flow and spectral Doppler with waveform analysis performed. FINDINGS: Exam includes the common femoral, femoral, popliteal veins as well as segmentally visualized deep calf veins and greater saphenous vein. RIGHT: No deep vein thrombosis. No superficial thrombophlebitis. No popliteal cyst. LEFT: No deep vein thrombosis. No superficial thrombophlebitis. No popliteal cyst. Procedure Note Dillon Hussein MD - 12/01/2024 For Patients: As a result of the Cures Act, medical imagingexams and procedure reports are released immediately into your electronicmedical record. You may view this report before your referring provider.If you have questions, please contact your health care provider. EXAM: US VENOUS LOWER EXTREMITY BILATERAL LOCATION: [facility] DATE: 12/01/2024 INDICATION: Swelling COMPARISON: None. TECHNIQUE: Venous Duplex ultrasound of bilateral lower extremities withand without compression, augmentation and duplex. Color flow and spectralDoppler with waveform analysis performed. FINDINGS: Exam includes the common femoral, femoral, popliteal veins aswell as segmentally visualized deep calf veins and greater saphenous vein. RIGHT: No deep vein thrombosis. No superficial thrombophlebitis. Nopopliteal cyst. LEFT: No deep vein thrombosis. No superficial thrombophlebitis. Nopopliteal cyst. IMPRESSION: No deep venous thrombosis in the bilateral lower extremities. Kaitlin Dorman NP US Final Result * TYPE & SCREEN (12/01/2024 1:46 PM CDT) Only the most recent of2 resultswithin the time period is included. ABORH O Rh Negative 12/01/2024 2:50 PM CDT [facility] BLOOD BANK ANTIBODY SCREEN Negative Negative 12/01/2024 2:50 PM CDT [facility] BLOOD BANK SPECIMEN EXPIRATION DATE/TIME 12/04/24 23:59 12/01/2024 2:50 PM CDT [facility] BLOOD BANK Blood BLOOD SPECIMEN / Unknown Non-Lab Venipuncture / Unknown 12/01/2024 1:46 PM CDT 12/01/2024 1:58 PM CDT Kaitlin Dorman NP BLOOD BANK Final Result [facility] BLOOD BANK [address] [place] [address] * SCAN-CARDIAC STRIP (12/01/2024 10:06 AM CDT) us Scanner OTHER Final Result * CT HEAD BRAIN WO (12/01/2024 7:36 AM CDT) Only the most recent of2 resultswithin the time period is included. Anatomical Region Laterality Modality HEAD, BRAIN Computed Tomogra phy 12/01/2024 7:36 AM CDT Impressions 12/01/2024 7:52 AM CDT FINDINGS/IMPRESSION: No significant change since 11/30/2024. Imaging performed for the purposes of stereotactic localization demonstrates no significant change in size of multilobulated dural based partially calcified soft tissue mass overlying the left frontotemporal convexity with surrounding extensive vasogenic edema throughout the left frontal and temporal lobes, left cerebral hemispheric deep white matter tracts and associated 6 mm rightward midline shift. Patent basal cisterns. No herniation or hydrocephalus. Narrative 12/01/2024 7:52 AM CDT For Patients: As a result of the Cures Act, medical imaging exams and procedure reports are released immediately into your electronic medical record. You may view this report before your referring provider. If you have questions, please contact your health care provider. EXAM: CT HEAD BRAIN WO LOCATION: [facility] DATE: 12/01/2024 INDICATION: Brain tumor, stereotactic COMPARISON: Head CT 11/30/2024, brain MRI 11/29/2024. TECHNIQUE: Routine CT Head without IV contrast. Multiplanar reformats. Dose reduction techniques were used. Procedure Note Chuy Campos MD - 12/01/2024 For Patients: As a result of the Cures Act, medical imagingexams and procedure reports are released immediately into your electronicmedical record. You may view this report before your referring provider.If you have questions, please contact your health care provider. EXAM: CT HEAD BRAIN WO LOCATION: [facility] DATE: 12/01/2024 INDICATION: Brain tumor, stereotactic COMPARISON: Head CT 11/30/2024, brain MRI 11/29/2024. TECHNIQUE: Routine CT Head without IV contrast. Multiplanar reformats.Dose reduction techniques were used. IMPRESSION: FINDINGS/IMPRESSION: No significant change since 11/30/2024. Imaging performed for the purposesof stereotactic localization demonstrates no significant change in size ofmultilobulated dural based partially calcified soft tissue mass overlyingthe left frontotemporal convexity with surrounding extensive vasogenicedema throughout the left frontal and temporal lobes, left cerebralhemispheric deep white matter tracts and associated 6 mm rightward midlineshift. Patent basal cisterns. No herniation or hydrocephalus. Kaitlin Dorman FOUNDRY SUPERVISOR CT Final Result * RED CELL MORPHOLOGY (12/01/2024 5:55 AM CDT) Only the most recent of5 resultswithin the time period is included. Pathologist [facility] RBC COMMENT RBC morphology appears normal RBC morphology appears normal, RBC morphology within normal limits for newborns. 12/01/2024 6:38 AM CDT [facility] Blood BLOOD SPECIMEN / Unknown Non-Lab Venipuncture / Unknown 12/01/2024 5:55 AM CDT 12/01/2024 6:01 AM CDT Ramon HINES HEMATOLOGY Final Resul t [facility] SENDOUT INTERNAL ZIP [address] [place] [address] * (ABNORMAL) PLATELET ESTIMATE (12/01/2024 5:55 AM CDT) Only the most recent of5 resultswithin the time period is included. Pathologist [facility] PLATELET ESTIMATE Decreased (A) Adequate, No estimate 12/01/2024 6:38 AM CDT [facility] Blood BLOOD SPECIMEN / Unknown Non-Lab Venipuncture / Unknown 12/01/2024 5:55 AM CDT 12/01/2024 6:01 AM CDT Ramon HINES HEMATOLOGY Final Resul t [facility] SENDOUT INTERNAL ZIP [address] [address] [place] [address] * SCAN-CARDIAC STRIP (11/30/2024 4:13 PM CDT) us Scanner OTHER Final Result * (ABNORMAL) PLATELET COUNT (11/30/2024 4:06 AM CDT) PLATELET COUNT 102(L) 140 - 440 thou/cu mm 11/30/2024 4:45 AM CDT [facility] MPV 10.0 6.5 - 11.0 fL 11/30/2024 4:45 AM CDT [facility] Blood BLOOD SPECIMEN / Unknown Line/Port / Unknown 11/30/2024 4:06 AM CDT 11/30/2024 4:20 AM CDT us Davian Ahmadi MD HEMATOLOGY Fi nal Result Performing Organization Address City/[facility]/ZIP Co nc Phone Number [facility] SENDOUT INTERNAL ZIP [phone] [place] [address] * WHITE BLOOD COUNT (11/30/2024 4:06 AM CDT) WHITE BLOOD COUNT 5.0 4.5 - 11.0 thou/cu mm 11/30/2024 4:45 AM CDT [facility] NRBC 0.0 % 11/30/2024 4:45 AM CDT [facility] ABS NRBC 0.0 thou /cu mm 11/30/2024 4:45 AM CDT [facility] Blood BLOOD SPECIMEN / Unknown Line/Port / Unknown 11/30/2024 4:06 AM CDT 11/30/2024 4:20 AM CDT us Davian Ahmadi MD HEMATOLOGY Fi nal Result Performing Organization Address City/[facility]/ZIP Co de Phone Number [facility] SENDOUT INTERNAL ZIP [phone] [place] [address] * (ABNORMAL) HEMOGLOBIN (11/30/2024 4:06 AM CDT) HEMOGLOBIN 12.4(L) 13.5 - 17.5 g/dL 11/30/2024 4:45 AM CDT [facility] MCV 93 80 - 100 fL 11/30/2024 4:45 AM CDT [facility] Blood BLOOD SPECIMEN / Unknown Line/Port / Unknown 11/30/2024 4:06 AM CDT 11/30/2024 4:20 AM CDT us Davian Ahmadi MD HEMATOLOGY Fi nal Result [facility] SENDOUT INTERNAL ZIP [phone] [place] [address] * SCAN-CARDIAC STRIP (11/29/2024 8:20 PM CDT) us Scanner OTHER Final Result * (ABNORMAL) ONCOLOGY ABSOLUTE NEUTROPHIL COUNT (11/29/2024 10:09 AM CDT) WHITE BLOOD COUNT 5.4 4.5 - 11.0 thou/cu mm 11/29/2024 10:24 AM CDT [facility] RED BLOOD COUNT 4.25(L) 4.30 - 5.90 mil/cu mm 11/29/2024 10:24 AM CDT [facility] HEMOGLOBIN 13.3(L) 13.5 - 17.5 g/dL 11/29/2024 10:24 AM CDT [facility] HEMATOCRIT 39.7 37.0 - 53.0 % 11/29/2024 10:24 AM CDT [facility] MCV 93 80 - 100 fL 11/29/2024 10:24 AM CDT [facility] MCH 31.3 26.0 - 34.0 pg 11/29/2024 10:24 AM CDT [facility] MCHC 33.5 32.0 - 36.0 g/dL 11/29/2024 10:24 AM CDT [facility] RDW 15.3 11.5 - 15.5 % 11/29/2024 10:24 AM CDT [facility] PLATELET COUNT 100(L) 140 - 440 thou/cu mm 11/29/2024 10:24 AM CDT [facility] MPV 9.4 6.5 - 11.0 fL 11/29/2024 10:24 AM CDT [facility] % NEUT 71.5 % 11/29/2024 10:24 AM CDT [facility] % LYMPH 15.9 % 11/29/2024 10:24 AM CDT [facility] % MONO 7.6 % 11/29/2024 10:24 AM CDT [facility] % EOS 3.5 % 11/29/2024 10:24 AM CDT [facility] % BASO 1.1 % 11/29/2024 10:24 AM CDT [facility] ONCOLOGY ABSOLUTE NEUTROPHILS 3.8 1.7 - 7.0 thou/cu mm 11/29/2024 10:24 AM CDT [facility] % IMMATURE GRAN (METAS,MYELOS,WY OS) 0.4 % 11/29/2024 10:24 AM CDT [facility] ABSOLUTE LYMPHOCYTES 0.9 0.9 - 2.9 thou/cu mm 11/29/2024 10:24 AM CDT [facility] ABSOLUTE MONOCYTES 0.4 <0.9 thou/cu mm 11/29/2024 10:24 AM CDT [facility] ABSOLUTE EOSINOPHILS 0.2 <0.5 thou/cu mm 11/29/2024 10:24 AM CDT [facility] ABSOLUTE BASOPHILS 0.1 <0.3 thou/cu mm 11/29/2024 10:24 AM CDT [facility] ABSOLUTE IMMATURE GRANULOCYTES(MET ,MYELOS,PROS) 0.0 <0.3 thou/cu mm 11/29/2024 10:24 AM CDT [facility] NRBC 0.0 % 11/29/2024 10:24 AM CDT [facility] ABS NRBC 0.0 thou /cu mm 11/29/2024 10:24 AM CDT [facility] Blood BLOOD SPECIMEN / Unknown IV Start / Unknown 11/29/2024 10:09 AM CDT 11/29/2024 10:13 AM CDT Narrative [facility] - 11/29/2024 10:24 AM CDT Includes CBC and differential. Marianne Browning MD HEMATOLOGY Final R esult [facility] [place] [address], * (ABNORMAL) COMP METABOLIC PANEL (11/29/2024 10:09 AM CDT) Only the most recent of2 resultswithin the time period is included. SODIUM 137 136 - 145 mmol/L 11/29/2024 10:33 AM CDT [facility] POTASSIUM 4.3 3.5 - 5.1 mmol/L 11/29/2024 10:33 AM CDT [facility] CHLORIDE 101 98 - 107 mmol/L 11/29/2024 10:33 AM CDT [facility] CO2,TOTAL 25 22 - 29 mmol/L 11/29/2024 10:33 AM CDT [facility] ANION GAP 11 5 - 18 11/29/2024 10:33 AM CDT [facility] GLUCOSE 135(H) 70 - 99 mg/dL 11/29/2024 10:33 AM CDT [facility] CALCIUM 9.4 8.8 - 10.4 mg/dL 11/29/2024 10:33 AM CDT [facility] Comment: Reference ranges for this test were updated on 02/24/2024 to reflect our healthy population more accurately. Reference range changes are not retroactively applied to results, but previous results using the same methodology can be interpreted in the context of the new reference range. BUN 17 8 - 23 mg/dL 11/29/2024 10:33 AM CDT [facility] CREATININE 0.91 0.70 - 1.20 mg/dL 11/29/2024 10:33 AM CDT [facility] BUN/CREAT RATIO 19 10 - 20 10:33 AM CDT [facility] eGFR >90 >90 mL/min/1.7 3m2 11/29/2024 10:33 AM CDT [facility] Comment:As of 2021, eG FR is calculated by the CKD-EPI creatinine equation without race adjustment. eGFR can be influenced by muscle mass, exercise, and diet. The reported eGFR is an estimation only and is only applicable if the renal function is stable. ALBUMIN 4.0 4.0 - 4.9 g/dL 11/29/2024 10:33 AM CDT [facility] PROTEIN,TOTAL 7.9 6.0 - 8.0 g/dL 11/29/2024 10:33 AM CDT [facility] BILIRUBIN,TOTAL 0.6 0.0 - 1.2 mg/dL 11/29/2024 10:33 AM CDT [facility] ALK PHOSPHATASE 101 40 - 129 IU/L 11/29/2024 10:33 AM CDT [facility] ALT (SGPT) 18 10 - 50 IU/L 11/29/2024 10:33 AM CDT [facility] AST (SGOT) 31 10 - 50 IU/L 11/29/2024 10:33 AM CDT [facility] Blood BLOOD SPECIMEN / Unknown IV Start / Unknown 11/29/2024 10:09 AM CDT 11/29/2024 10:13 AM CDT Marianne Browning MD CHEMISTRY Final R esult [facility] [address] [place] [address], * SCAN-CARDIAC STRIP (11/29/2024 12:00 AM CDT) Narrative 11/29/2024 12:00 AM CDT Ordered by an unspecified provider. us Other Clinical Staff OTHER Final Resul t * SCAN-CARDIAC STRIP (11/29/2024 12:00 AM CDT) Narrative 11/29/2024 12:00 AM CDT Ordered by an unspecified provider. us Other Clinical Staff OTHER Final Resul t * MR SPINE THORACIC W/WO CONTRAST (10/27/2024 8:30 AM CDT) Anatomical Region Laterality Modality Spine, THORACIC SPINE Magnetic R esonance 10/27/2024 8:30 AM CDT Impressions 10/27/2024 2:56 PM CDT 1. Negative for thoracic spine metastatic disease. 2. Mild degenerative changes without spinal canal or neural foraminal stenosis. 3. Left upper lobe mass, similar to prior PET/CT. Narrative 10/27/2024 2:56 PM CDT For Patients: As a result of the Century Cures Act, medical imaging exams and procedure reports are released immediately into your electronic medical record. You may view this report before your referring provider. If you have questions, please contact your health care provider. 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 Other (enter in comment field) COMPARISON: None. CONTRAST: Clariscan 15mL TECHNIQUE: Routine Thoracic Spine MRI without and with IV contrast. FINDINGS: Normal vertebral body heights, alignment and marrow signal. Scattered mild disc desiccation and disc bulging. Gadolinium mild facet hypertrophy. No spinal canal or neural foraminal stenosis. No abnormal cord signal. Negative for pathologic contrast enhancement. Heterogeneously enhancing left upper lobe mass measures 4.1 x 5.7 cm, similar to prior PET/CT. Procedure Note Lino Redman MD - 10/27/2024 For Patients: As a result of the Cures Act, medical imagingexams and procedure reports are released immediately into your electronicmedical record. You may view this report before your referring provider.If you have questions, please contact your health care provider. 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 Other (enter incomment field) COMPARISON: None. CONTRAST: Clariscan 15mL TECHNIQUE: Routine Thoracic Spine MRI without and with IV contrast. FINDINGS: Normal vertebral body heights, alignment and marrow signal. Scattered milddisc desiccation and disc bulging. Gadolinium mild facet hypertrophy. Nospinal canal or neural foraminal stenosis. No abnormal cord signal.Negative for pathologic contrast enhancement. Heterogeneously enhancing left upper lobe mass measures 4.1 x 5.7 cm,similar to prior PET/CT. IMPRESSION: 1. Negative for thoracic spine metastatic disease. 2. Mild degenerative changes without spinal canal or neural foraminalstenosis. 3. Left upper lobe mass, similar to prior PET/CT. us Gio Kiran MD MR Final Re sult * (ABNORMAL) MANUAL DIFFERENTIAL (10/17/2024 6:04 AM CDT) Only the most recent of4 resultswithin the time period is included. % NEUTROPHILS 58.0 % 10/17/2024 10:47 AM T [facility] % LYMPHOCYTES 37.0 % 10/17/2024 10:47 AM T [facility] % MONOCYTES 5.0 % 10/17/2024 10:47 AM T [facility] % EOSINOPHILS 0.0 % 10/17/2024 10:47 AM T [facility] % BASOPHILS 0.0 % 10/17/2024 10:47 AM T [facility] NEUTROPHILS ABSOLUTE 1.5(L) 1.7 - 7.0 thou/cu mm 10/17/2024 10:47 AM T [facility] LYMPHOCYTES ABSOLUTE 0.9 0.9 - 2.9 thou/cu mm 10/17/2024 10:47 AM T [facility] MONOCYTES ABSOLUTE 0.1 <0.9 thou/cu mm 10/17/2024 10:47 AM T [facility] EOSINOPHILS ABSOLUTE 0.0 <0.5 thou/cu mm 10/17/2024 10:47 AM T [facility] BASOPHILS ABSOLUTE 0.0 <0.3 thou/cu mm 10/17/2024 10:47 AM [facility] Blood BLOOD SPECIMEN / Unknown Non-Lab Venipuncture / Unknown 10/17/2024 6:04 AM CDT 10/17/2024 6:16 AM CDT us Anne Marie BOSS HEMATOLOGY Final R esult [facility] SENDOUT INTERNAL [facility] [id number] [place] [address] * PHOSPHORUS (10/17/2024 6:04 AM CDT) PHOSPHORUS 3.1 2.5 - 4.5 mg/dL 10/17/2024 6:44 AM CDT [facility] Blood BLOOD SPECIMEN / Unknown Non-Lab Venipuncture / Unknown 10/17/2024 6:04 AM CDT 10/17/2024 6:16 AM CDT us Gio White MD CHEMISTRY Final R esult [facility] SENDOUT INTERNAL ZIP [address] [address] [place] [address] * SCAN-CARDIAC STRIP (10/16/2024 8:57 AM CDT) us Scanner OTHER Final Result * CORTISOL TOTAL (10/16/2024 5:30 AM CDT) CORTISOL,TOTAL 20.7 ug/dL 10/16/2024 7:14 AM CDT [facility] Blood BLOOD SPECIMEN / Unknown Line/Port / Unknown 10/16/2024 5:30 AM CDT 10/16/2024 5:41 AM CDT [facility] - 10/16/2024 7:14 AM CDT Cortisol Morning Hours 6:00 AM - 10:00 AM (4.8-19.5 ug/dL) Cortisol Afternoon Hours 4:00 PM - 8:00 PM (2.5-11.9 ug/dL) Biotin supplements may cause clinically significant interference for this test assay. If interference is suspected, it is strongly recommended that biotin is discontinued for at least one week prior to retesting. us Jer Chun MD CHEMISTRY Final Res ult [facility] SENDOUT INTERNAL ZIP [address] [address] [place] [address] * (ABNORMAL) RENAL FUNCTION PANEL (10/16/2024 5:30 AM CDT) SODIUM 141 136 - 145 mmol/L 10/16/2024 7:21 AM CDT [facility] POTASSIUM 4.1 3.5 - 5.1 mmol/L 10/16/2024 7:21 AM T [facility] CHLORIDE 106 98 - 107 mmol/L 10/16/2024 7:21 AM T [facility] CO2,TOTAL 23 22 - 29 mmol/L 10/16/2024 7:21 AM T [facility] ANION GAP 12 5 - 18 10/16/2024 7:21 AM T [facility] GLUCOSE 118(H) 70 - 99 mg/dL 10/16/2024 7:21 AM T [facility] CALCIUM 8.9 8.8 - 10.4 mg/dL 10/16/2024 7:21 AM [facility] Comment: Reference ranges for this test were updated on 02/24/2024 to reflect our healthy population more accurately. Reference range changes are not retroactively applied to results, but previous results using the same methodology can be interpreted in the context of the new reference range. BUN 44(H) 8 - 23 mg/dL 10/16/2024 7:21 AM [facility] CREATININE 1.37(H) 0.70 - 1.20 mg/dL 10/16/2024 7:21 AM [facility] BUN/CREAT RATIO 32(H) 10 - 20 7:21 AM [facility] [facility] eGFR 59(L) >90 mL/min/1. 73m2 10/16/2024 7:21 AM [facility] Comment:As of 2021, eG FR is calculated by the CKD-EPI creatinine equation without race adjustment. eGFR can be influenced by muscle mass, exercise, and diet. The reported eGFR is an estimation only and is only applicable if the renal function is stable. PHOSPHORUS 2.2(L) 2.5 - 4.5 mg/dL 10/16/2024 7:21 AM [facility] ALBUMIN 3.3(L) 4.0 - 4.9 g/dL 10/16/2024 7:21 AM [facility] Blood BLOOD SPECIMEN / Unknown Line/Port / Unknown 10/16/2024 5:30 AM CDT 10/16/2024 5:41 AM CDT us Jer Chun MD CHEMISTRY Final Res ult [facility] SENDOUT [place]IP [phone] [place] [address] * SCAN-CARDIAC STRIP (10/15/2024 8:00 PM CDT) us Scanner OTHER Final Result * (ABNORMAL) PROTEIN/CREAT RATIO,URINE (10/15/2024 12:46 PM CDT) PROTEIN QUANT,RAND URINE 19(H) 1 - 14 mg/dL 10/15/2024 1:28 PM CDT [facility] CREAT,RANDOM URINE 70.6 39.0 - 259.0 mg/dL 10/15/2024 1:28 PM CDT [facility] PROT/CREAT RATIO,UR 0.3(H) <0.2 10/15/2024 1:28 PM CDT [facility] Urine URINE SPECIMEN / Unknown Non-Blood / Unknown 10/15/2024 12:46 PM CDT 10/15/2024 12:54 PM CDT us Jer Chun MD URINE Final Res ult [facility] SENDOUT [place] [address] [id number] [place] [address] * SCAN-CARDIAC STRIP (10/15/2024 8:16 AM CDT) us Scanner OTHER Final Result * TRANSFUSE PLT (NURSE COMMUNICATION ORDER) (10/15/2024 5:54 AM CDT) Blood BLOOD SPECIMEN / Unknown us Galen Arndt MD NURSING BLOOD BANK Final Result * TSH (10/15/2024 5:46 AM CDT) TSH 3.84 0.27 - 4.20 uIU/mL 10/15/2024 1:12 PM CDT [facility] Blood BLOOD SPECIMEN / Unknown Line/Port / Unknown 10/15/2024 5:46 AM CDT 10/15/2024 5:54 AM CDT Narrative [facility] - 10/15/2024 1:12 PM CDT In Adults, TSH values between 5.00 and 10.00 uIU/ml do not necessarily indicate the presence of Hypothyroidism. Correlation with clinical findings such as presence of goiter and/or Thyroperoxidase (TPO) Antibody may be helpful. For more information please refer to AMADO 2004; 291: 228-238. us Jer Chun MD CHEMISTRY Final Res ult Performing Organization Address [facility]/ZIP Co de Phone Number [facility] SENDOUT INTERNAL ZIP [phone] [place] [phone] * SCAN-CARDIAC STRIP (10/15/2024 5:37 AM CDT) Scanner OTHER Final Result * PLATELET ORDER, 1 unit, IRRADIATED or Equivalent (10/15/2024 2:41 AM CDT) QUANTITY 1 10/15/2024 2:41 AM CDT [facility] Blood BLOOD SPECIMEN / Unknown 10/15/2024 2:33 AM CDT Nica Boogie DO BLOOD BANK Final R esult Performing Organization Address [facility] Co de Phone Number [facility] [address] [place] [phone] * PLATELET EA UNIT (10/15/2024 2:40 AM CDT) PRODUCT BLOOD TYPE A Rh Positive [facility] PRODUCT ID NUMBER [id number] [facility] PRODUCT STATUS Transfused [facility] B[facility]OD B[facility] PRODUCT DESCRIPTION SDP ACD-A IRR LR Pt3 [facility] B[facility]OD [facility] PRODUCT CODE [id number] [facility] BLOOD B[facility] ISSUE DATE/TIME 10/15/24 03:22 [facility] Nica Boogie BLOOD BANK Edited Result - Final Performing Organization Address [facility]/ZIP Co de Phone Number [facility] [address] [place] [phone] * (ABNORMAL) URINALYSIS MICROSCOPIC (10/15/2024 1:00 AM CDT) RBC 3-5(A) 0-2, None Seen /HPF 10/15/2024 1:20 AM CDT [facility] WBC 3-5 0-2, 3-5, None Seen /HPF 10/15/2024 1:20 AM CDT [facility] BACTERIA Moderate(A) None Seen, Rare, Few Bacteria/ HPF 10/15/2024 1:20 AM CDT [facility] EPITHELIAL CELLS Few None Seen, Few Epi/HPF 10/15/2024 1:20 AM CDT [facility] Mucus Present 10/15/2024 1:20 AM CDT [facility] HYALINE CASTS 6-10(A) 0-2, 3-5 /LPF 10/15/2024 1:20 AM CDT [facility] GRANULAR CASTS 0-2(A) (none) /LPF 10/15/2024 1:20 AM CDT [facility] Urine URINE SPECIMEN / Unknown Non-Blood / Unknown 10/15/2024 1:00 AM CDT 10/15/2024 1:13 AM CDT Galen Arndt MD URINE Final Res ult [facility] [address] [place] [address], * (ABNORMAL) URINALYSIS W REFLEX MICROSCOPIC IF POSITIVE (10/15/2024 1:00 AM CDT) COLOR Yellow Yellow Color 10/15/2024 1:17 AM CDT [facility] CLARITY Clear Clear Clarity 10/15/2024 1:17 AM CDT [facility] SPECIFIC GRAVITY,URINE 1.020 1.010, 1.015, 1.020, 1.025 10/15/2024 1:17 AM CDT [facility] PH,URINE 5.5 6.0, 7.0, 8.0, 5.5, 6.5, 7.5, 8.5 10/15/2024 1:17 AM CDT [facility] UROBILINOGEN, QUALITATIVE Normal Normal EU/dl 10/15/2024 1:17 AM CDT [facility] PROTEIN, URINE Negative Negative mg/dL 10/15/2024 1:17 AM CDT [facility] GLUCOSE, URINE Negative Negative mg/dL 10/15/2024 1:17 AM CDT [facility] KETONES,URINE Trace(A) Negative mg/dL 10/15/2024 1:17 AM CDT [facility] BILIRUBIN,URI NE Negative Negative 10/15/2024 1:17 AM CDT [facility] OCCULT BLOOD,URINE Moderate(A) Negative 10/15/2024 1:17 AM CDT [facility] NITRITE Negative Negative 10/15/2024 1:17 AM CDT [facility] LEUKOCYTE ESTERASE Negative Negative 10/15/2024 1:17 AM CDT [facility] Urine URINE SPECIMEN / Unknown Non-Blood / Unknown 10/15/2024 1:00 AM CDT 10/15/2024 1:13 AM CDT Galen Arndt MD URINE Final Res ult [facility] [address] [place] [address], * CT ABDOMEN PELVIS WO (10/14/2024 11:17 PM CDT) Anatomical Region Laterality Modality Abdomen, Pelvis, AORTA, LIVER, SPLEEN Computed Tomography 10/14/2024 11:1 7 PM CDT Impressions 10/15/2024 12:16 AM CDT 1. Several colonic diverticula are present. Apparent slight haziness is present in the fat about the posterior aspect of the proximal sigmoid colon, in the region of diverticula. This is equivocal for mild diverticulitis. 2. No other acute abnormality identified in the abdomen or pelvis. Narrative 10/15/2024 12:16 AM CDT For Patients: As a result of the Cures Act, medical imaging exams and procedure reports are released immediately into your electronic medical record. You may view this report before your referring provider. If you have questions, please contact your health care provider. EXAM: CT ABDOMEN AND PELVIS WITHOUT CONTRAST LOCATION: [facility] DATE/TIME: 10/14/2024 11:17 PM CDT INDICATION: Vomiting and diarrhea. Low blood pressure. COMPARISON: 09/16/2024 - CT chest, abdomen and pelvis. 01/11/2022 - CT chest. TECHNIQUE: CT scan of the abdomen and pelvis was performed without IV contrast. Multiplanar reformats were obtained. Dose reduction techniques were used. CONTRAST: None. FINDINGS: LOWER CHEST: A few curvilinear opacities in bilateral lung bases likely represent atelectasis and/or scarring. HEPATOBILIARY: Unremarkable. SPLEEN: Unremarkable. PANCREAS: Unremarkable. ADRENAL GLANDS: 2.1 x 1.7 cm left adrenal nodule that measures 24 Hounsfield units on unenhanced images. This was also present on 01/11/2022 and is therefore likely an adenoma. KIDNEYS/BLADDER: No suspicious renal lesions. BOWEL: No significant dilatation of the stomach, small or large bowel. Several colonic diverticula are present. Apparent slight haziness is present within the fat about the posterior aspect of the proximal sigmoid colon, in the region of diverticula (series 3 image 107). No extraluminal gas or loculated fluid collections in the pelvis. Normal appendix. LYMPH NODES: Unremarkable. PELVIC ORGANS: No acute findings. MUSCULOSKELETAL: No acute findings. OTHER: Tiny right inguinal hernia containing fat. Atherosclerotic calcification in the abdominal aorta. Procedure Note Adan Ellis MD - 10/15/2024 For Patients: As a result of the Cures Act, medical imagingexams and procedure reports are released immediately into your electronicmedical record. You may view this report before your referring provider.If you have questions, please contact your health care provider. EXAM: CT ABDOMEN AND PELVIS WITHOUT CONTRAST LOCATION: [facility] DATE/TIME: 10/14/2024 11:17 PM CDT INDICATION: Vomiting and diarrhea. Low blood pressure. COMPARISON: 09/16/2024 - CT chest, abdomen and pelvis. 01/11/2022 - CT chest. TECHNIQUE: CT scan of the abdomen and pelvis was performed without IVcontrast. Multiplanar reformats were obtained. Dose reduction techniqueswere used. CONTRAST: None. FINDINGS: LOWER CHEST: A few curvilinear opacities in bilateral lung bases likelyrepresent atelectasis and/or scarring. HEPATOBILIARY: Unremarkable. SPLEEN: Unremarkable. PANCREAS: Unremarkable. ADRENAL GLANDS: 2.1 x 1.7 cm left adrenal nodule that measures 24Hounsfield units on unenhanced images. This was also present on 01/11/2022nd is therefore likely an adenoma. KIDNEYS/BLADDER: No suspicious renal lesions. BOWEL: No significant dilatation of the stomach, small or large bowel.Several colonic diverticula are present. Apparent slight haziness ispresent within the fat about the posterior aspect of the proximal sigmoidcolon, in the region of diverticula (series 3 image 107). No extraluminalgas or loculated fluid collections in the pelvis. Normal appendix. LYMPH NODES: Unremarkable. PELVIC ORGANS: No acute findings. MUSCULOSKELETAL: No acute findings. OTHER: Tiny right inguinal hernia containing fat. Atheroscleroticcalcification in the abdominal aorta. IMPRESSION: 1. Several colonic diverticula are present. Apparent slight haziness ispresent in the fat about the posterior aspect of the proximal sigmoidcolon, in the region of diverticula. This is equivocal for milddiverticulitis. 2. No other acute abnormality identified in the abdomen or pelvis. Galen Arndt MD CT Final Res ult * XR CHEST 1 VIEW PORTABLE (10/14/2024 10:19 PM CDT) Anatomical Region Laterality Modality HEART, THORAX, CHEST Computed Ra diography 10/14/2024 10:1 9 PM CDT Impressions 10/14/2024 11:01 PM CDT Single AP view of the chest was obtained. Right IJ Port-A-Cath distal tip projects over low SVC. Cardiomediastinal silhouette is within normal limits. Left upper lobe masslike opacity, consistent with the known lung mass. Bibasilar opacities, likely atelectasis. No significant pleural effusion or pneumothorax. Narrative 10/14/2024 11:01 PM CDT For Patients: As a result of the Cures Act, medical imaging exams and procedure reports are released immediately into your electronic medical record. You may view this report before your referring provider. If you have questions, please contact your health care provider. EXAM: XR CHEST 1 VIEW PORTABLE LOCATION: [facility] DATE/TIME: 10/14/2024 10:19 PM CDT INDICATION: Sepsis. COMPARISON: CT chest, abdomen and pelvis on 09/16/2024 Procedure Note Alta Lenz MD - 10/14/2024 For Patients: As a result of the Cures Act, medical imagingexams and procedure reports are released immediately into your electronicmedical record. You may view this report before your referring provider.If you have questions, please contact your health care provider. EXAM: XR CHEST 1 VIEW PORTABLE LOCATION: [facility] DATE/TIME: 10/14/2024 10:19 PM CDT INDICATION: Sepsis. COMPARISON: CT chest, abdomen and pelvis on 09/16/2024 IMPRESSION: Single AP view of the chest was obtained. Right IJ Port-A-Cath distal tipprojects over low SVC. Cardiomediastinal silhouette is within normallimits. Left upper lobe masslike opacity, consistent with the known lungmass. Bibasilar opacities, likely atelectasis. No significant pleuraleffusion or pneumothorax. Galen Arndt MD GENERAL IMAGING Final Res ult * BLOOD CULTURE X2 (10/14/2024 9:47 PM CDT) Only the most recent of2 resultswithin the time period is included. CULTURE No Growth. 10/20/2024 9:48 AM CDT [facility] Blood BLOOD SPECIMEN / Unknown Diversion Device / Unknown 10/14/2024 9:47 PM CDT 10/14/2024 9:55 PM CDT us Galen Arndt MD MICROBIOLOGY Final Res ult [facility] [address] [place] [address], * CWS PATH REVIEW HEMATOLOGY (10/14/2024 9:30 PM CDT) PATH COMMENT Reviewed 10/17/2024 11:28 AM CDT [facility] Comment:Reviewed by K[facility] on Blood BLOOD SPECIMEN / Unknown Line/Port / Unknown 10/14/2024 9:30 PM CDT 10/14/2024 9:59 PM CDT Galen Arndt MD LABORATORY Final Res ult [facility] [address] [place] [address], * (ABNORMAL) TROPONIN T ONE TIME (10/14/2024 9:30 PM CDT) TROPONIN T HS 29(H) 6-15 ng/L ng/L 10/14/2024 10:23 PM CDT [facility] Blood BLOOD SPECIMEN / Unknown Line/Port / Unknown 10/14/2024 9:30 PM CDT 10/14/2024 9:59 PM CDT Narrative [facility] - 10/14/2024 10:23 PM CDT hs-cTnT (Elecsys Troponin T Gen 5) concentration (s) above the sex-specific 99th percentile (16 ng/L or greater for males or 11 ng/L or greater for females) are indicative of myocardial injury. If initial hs-cTnT <=100 ng/L at presentation, a 0h/2h ABSOLUTE (ng/L) delta change (rising or falling) of >=10 ng/L suggests a significant change, whereas a 0h/2h delta change <=3 ng/L suggests no significant change. If initial hs-cTnT >100 ng/L at presentation, a 0h/2h/ RELATIVE (percent, %) delta change of 20% is suggested to distinguish patients with acute vs. chronic myocardial injury. There are multiple etiologies that can cause hs-cTnT increases above the 99th percentile (myocardial injury) other than acute myocardial infarction. Clinical context and careful clinical evaluation are critical for diagnosis and risk-stratification. The diagnosis of acute myocardial infarction requires a rising and/or falling pattern in hs-cTnT concentrations with at least one value above the sex-specific 99th percentile PLUS at least one of the following clinical criteria: ischemic symptoms, new or presumed new significant ST-T wave changes or new LBBB, development of pathological Q waves, imaging evidence of new loss of viable myocardium or new regional wall motion abnormality, or identification of intracoronary atherothrombosis or an acute angiographic culprit on coronary angiography. In appropriate low-risk patients with a non-ischemic electrocardiogram without active chest pain with a symptom onset >3-hours without recurrence, a single initial hs-cTnT<6 ng/L identifies patient with a very low risk in emergency department patient population. us Galen Arndt MD CHEMISTRY Final Res ult Performing Organization Address [facility]/ZIP Co de Phone Number [facility] [address] [place] [address], [place] [phone] * LACTATE VENOUS (10/14/2024 9:30 PM CDT) LACTATE,VENOUS 1.2 0.5 - 2.0 mmol/L 10/14/2024 10:20 PM CDT [facility] Blood BLOOD SPECIMEN / Unknown Line/Port / Unknown 10/14/2024 9:30 PM CDT 10/14/2024 9:59 PM CDT us Galen Arndt MD CHEMISTRY Final Res ult Performing Organization Address [facility] Co de Phone Number [facility] [address] [place] [address], [place] [phone] * (ABNORMAL) PROCALCITONIN (10/14/2024 9:30 PM CDT) PROCALCITONIN 2.41(H) ng/ml 10/14/2024 10:46 PM CDT [facility] Blood BLOOD SPECIMEN / Unknown Line/Port / Unknown 10/14/2024 9:30 PM CDT 10/14/2024 9:59 PM CDT Narrative [facility] - 10/14/2024 10:46 PM CDT Procalcitonin for initial assessment of Lower Respiratory Tract Infection: Results Interpretation <0.10 ng/mL Antibiotic therapy strongly discoraged. Indicates absent of bacterial infection. * 0.10 - 0.25 ng/mL Antibiotic therapy discouraged. Bacterial infection unlikely. * 0.26 - 0.50 ng/mL Antibiotic therapy encouraged. Bacterial infection possible. >0.50 ng/mL Antibiotic therapy strongly encouraged. Suggestive of presence of bacterial infection. *Antibiotic therapy should be considered regardless of PCT result if the patient is clinically unstable, is at high risk for adverse outcome, has strong evidence of bacterial pathogen, or the clinical context indicates antibiotic therapy is warranted. If antibiotics are withheld, reassess if symptoms persist/worsen and/or repeat PCT measurement within 6-24 hours. In order to assess treatment success and to support a decision to discontinue antibiotic therapy, follow up samples should be tested once every 1-2 days, based upon physician discretion taking into account patient's evolution and progress. Procalcitonin for initial assessment of severe sepsis risk: Results Interpretation <0.5 ng/ml A PCT level below 0.5 ng/ml on the first day of ICU admission is associated with a low risk for progression to severe sepsis and/or septic shock. > 2.0 ng/mL A PCT level above 2.0 ng/mL on the first day of ICU admission is associated with a high risk for progression to severe sepsis and/or septic shock. Note: Concentrations < 0.5 ng/mL do not exclude an infection, on account of localized infections (without systemic signs) which can be associated with such low concentrations, or a systemic infection in its initial stages(< 6 hours). Furthermore, increased procalcitonin can occur without infection. PCT concentrations between 0.5 and 2.0 ng/mL should be interpreted taking into account the patient's history. It is recommended to retest PCT within 6-24 hours if any concentrations < 2 ng/mL are obtained. Galen Arndt MD SEND OUTS Final Res ult Performing Organization Address [facility] de Phone Number [facility] [address] [place] [phone], * EKG 12 Lead (10/14/2024 9:23 PM CDT) Interpretation Normal sinus rhythm Normal ECG No previous ECGs available [facility] Ventricular Rate 77 BPM [facility] NOW Atrial Rate 77 BPM [facility] NOW P-R Interval 150 ms [facility] NOW QRS Duration 114 ms [facility] NOW QT 376 ms [facility]YOND NOW QTc 425 ms BEYOND NOW P Stoddard 68 degrees BEYOND NOW R Stoddard 50 degrees BEYOND NOW T Stoddard 24 degrees [facility] NOW 10/14/2024 9:23 PM CDT 10/15/2024 6:07 AM CDT Narrative [facility] - 10/15/2024 6:07 AM CDT Test Indication: WEAK Galen Arndt MD EKG ORD Final Res ult Performing Organization Address [facility] de Phone Number [facility] [place], [place] * CRITICAL CARE PROVIDED (10/14/2024 9:15 PM CDT) Narrative Galen Arndt MD - 10/14/2024 9:15 PM CDT Galen Arndt MD 10/14/2024 10:38 PM CRITICAL CARE PROVIDED Performed by: Galen Arndt MD Authorized by: Galen Arndt MD Critical care provider statement: Critical care time (minutes): 30 Critical care time was exclusive of: Separately billable procedures and treating other patients and teaching time Critical care was necessary to treat or prevent imminent or life-threatening deterioration of the following conditions: Dehydration and shock Critical care was time spent personally by me on the following activities: Development of treatment plan with patient or surrogate, discussions with consultants, evaluation of patient's response to treatment, examination of patient, obtaining history from patient or surrogate, ordering and review of laboratory studies, ordering and review of radiographic studies, re-evaluation of patient's condition and ordering and performing treatments and interventions I assumed direction of critical care for this patient from another provider in my specialty: no Care discussed with: admitting provider Galen Arndt MD PROCEDURE ORD Final Res ult * PET CT SKULL BASE TO MID THIGH SUBSEQUENT TREAT (10/07/2024 9:43 AM CDT) Anatomical Region Laterality Modality Positron Emissio n Tomography (PET) 10/07/2024 9:43 AM CDT Impressions 10/07/2024 10:56 AM CDT Progressive disease. Narrative 10/07/2024 10:56 AM CDT For Patients: As a result of the Cures Act, medical imaging exams and procedure reports are released immediately into your electronic medical record. You may view this report before your referring provider. If you have questions, please contact your health care provider. EXAM: PET CT SKULL BASE TO MID THIGH SUBSEQUENT TREAT LOCATION: [facility] DATE: 10/07/2024 INDICATION: Subsequent treatment planning and restaging for malignant neoplasm of upper lobe, left bronchus or lung. COMPARISON: FDG PET/CT 09/19/2023, CT CAP 09/16/2024 TECHNIQUE: Serum glucose level 116 mg/dL. One hour post intravenous administration of FDG 10.8 mCi, PET imaging was performed from the skull base to mid thigh utilizing attenuation correction with concurrent axial CT and PET/CT image fusion. Dose reduction techniques were used. FINDINGS: Increased size and FDG uptake within [...] sinus polyp (SUV max 2.8, previously 5.0). Right chest wall port catheter with tip in the low SVC. Moderate coronary artery calcification. Aortic valve calcification. Moderate emphysema. Right renal cyst. Left adrenal adenoma measuring 1.8 cm Colonic diverticulosis. Ectatic infrarenal abdominal aorta. Small fat-containing right inguinal hernia. Multilevel degenerative changes in the spine Procedure Note Fredy Velasquez MD - 10/07/2024 For Patients: As a result of the Cures Act, medical imagingexams and procedure reports are released immediately into your electronicmedical record. You may view this report before your referring provider.If you have questions, please contact your health care provider. EXAM: PET CT SKULL BASE TO MID THIGH SUBSEQUENT TREAT LOCATION: [facility] DATE: 10/07/2024 INDICATION: Subsequent treatment planning and restaging for malignantneoplasm of upper lobe, left bronchus or lung. COMPARISON: FDG PET/CT 09/19/2023, CT CAP 09/16/2024 TECHNIQUE: Serum glucose level 116 mg/dL. One hour post intravenousadministration of FDG 10.8 mCi, PET imaging was performed from the skullbase to mid thigh utilizing attenuation correction with concurrent axialCT and PET/CT image fusion. Dose reduction techniques were used. FINDINGS: Increased size and FDG uptake within the left upper lobe masswith heterogeneous internal mineralization measuring 5.4 x 3.5 x 5.7 cm(SUV max 13.7, previously 4.1 x 1.7 x 5.1 cm with SUV max 12.7) anddevelopment of new areas of FDG avid pleural thickening elsewhere in theleft hemithorax suspicious for pleural metastasis, for example anteriorlynear the level of the main pulmonary artery (SUV max 7.3) suggestsprogressive disease. Mild diffuse esophagitis. Decreased FDG uptake associated with a rightmaxillary sinus polyp (SUV max 2.8, previously 5.0). Right chest wall port catheter with tip in the low SVC. Moderate coronaryartery calcification. Aortic valve calcification. Moderate emphysema.Right renal cyst. Left adrenal adenoma measuring 1.8 cm Colonicdiverticulosis. Ectatic infrarenal abdominal aorta. Small fat-containingright inguinal hernia. Multilevel degenerative changes in the spine IMPRESSION: Progressive disease. Marleen Snider [employer], [employer]PER[employer] PET Fin al Result * ANTI HCV (11/26/2023 4:05 PM CDT) HEPATITIS C ANTIBODY Non-Reacti ve Non-React erik 11/27/2023 4:03 PM CDT [facility] Comment:Please note, per www .CDC.gov: If a patient is known to be at high risk of HCV infection, or is symptomatic, and the physician's suspicion of HCV infection is high, HCV RNA testing is often employed and is of diagnostic value, even after an initial negative anti-HCV test result. Blood BLOOD SPECIMEN / Unknown Venipuncture / Unknown 11/26/2023 4:05 PM CDT 11/26/2023 4:05 PM CDT us Marianne Browning MD SEND OUTS Final R esult [facility] [address] [place] [address], [place] * LIPID PANEL W REFLEX MEASURED LDL (07/05/2020 3:58 PM CDT) CHOLESTEROL,TOTAL 180 100 - 199 mg/dL 07/05/2020 8:50 PM CDT [facility] TRIGLYCERIDES 107 <150 mg/dL 07/05/2020 8:50 PM CDT [facility] HDL CHOLESTEROL 65 >40 mg/dL 8:50 PM CDT [facility] NON-HDL CHOLESTEROL 115 <145 mg/dl 07/05/2020 8:50 PM CDT [facility] CHOL/HDL RATIO 2.77 <4.50 07/05/2020 8:50 PM CDT [facility] LDL CHOLESTEROL 94 <=130 mg/dL 07/05/2020 8:50 PM CDT [facility] PROVIDER ORDERED STATUS RANDOM 07/05/2020 8:50 PM CDT [facility] Blood BLOOD SPECIMEN / Unknown Venipuncture / Unknown 07/05/2020 3:58 PM CDT 07/05/2020 3:59 PM CDT us Wenceslao Landers MD CHEMISTRY Final Re sult [facility] [address] [place] [address], * COLONOSCOPY SCREENING (06/02/2019 10:39 AM ACCESS COORDINATOR) us Harjeet Soliman MD GI PROCEDURE ORD Final Res ult from Last 3 Months or Most Recently Relevant to Health Maintenance Insurance [facility] Advance Directives Documents on File Type Date Recorded Patient Manager Fine Expl anation POLST 02/06/2022 * Full Code (Latest Code Status on File) Date Activated Date Inactivated Comments 11/29/2024 8:13 PM 12/05/2024 2:02 PM Question Answer Comments Code Status Discussion: Reviewed Preferences * Full Code Date Activated Date Inactivated Comments 11/29/2024 8:11 PM 11/29/2024 8:13 PM Question Answer Comments Code Status Discussion: Reviewed Preferences * Full Code Date Activated Date Inactivated Comments 10/15/2024 2:20 AM 10/17/2024 8:07 PM Question Answer Comments Code Status Discussion: Reviewed Preferences * Full Code Date Activated Date Inactivated Comments 08/04/2024 12:55 PM 08/05/2024 3:08 PM Question Answer Comments Code Status Discussion: Reviewed Preferences * Full Code Date Activated Date Inactivated Comments 07/27/2024 12:48 PM 07/28/2024 1:12 PM Question Answer Comments Code Status Discussion: Reviewed Preferences Care Teams Curtain Mender Relationship Specialty [place] [id number] [address] [facility] [place] [address] PCP - General Family Practice 02/06/22 Marianne Browning MD [address] [place] [id number] Oncology 01/11/22 Christi Cordon, CELESTINE [address] [place] [address] Registered Nurse 04/26/24 Edgar Benitez MD [address] [id number] Radiation Oncology 12/13/24
--- OUTSIDE RECORDS SUMMARY | 2024-12-27 12:05 | XMS_ITS | Clinical Summary ---
Author Organization [facility] Address [address] [place] [address] Care Team Providers Care Ophthalmic Medical Technician Name Role Phone Unavailable Primary Care Provider Unavailabl e Source Comments Patient records contain information from all sites at [facility]. For routine questions regarding patient records, call [phone] during business hours, M-F 8:00 AM - 5:00 PM Central Time. Record requests for emergency care only can be directed to [phone] at any time.[facility] Allergies No known active allergies Medications amitriptyline (ELAVIL) 25 mg tablet Take 25 mg by mouth daily. 2 Active dexAMETHasone (DECADRON) 4 mg tablet Take 8 mg by mouth. Takes two in the morning for the first three days after chemo 2 Active fentaNYL (DURAGESIC) 50 mcg/hr patch Place 1 patch on the skin every third day. 2 Active lisinopriL (PRINIVIL,ZESTR IL) 10 mg tablet Take 10 mg by mouth daily. 2 Active OLANZapine (ZyPREXA) 5 mg tablet Take 1 tablet (5 mg) by mouth once daily in the evening for 4 days. Start taking the evening of chemotherapy and continue for 3 days after. 2 Active ondansetron (ZOFRAN) 8 mg tablet Take 8 mg by mouth every 8 (eight) hours as needed. 2 Active oxyCODONE (ROXICODONE) 10 mg IR tablet Take 20 mg by mouth every 6 (six) hours as needed. 2 Active prochlorperazin e (COMPAZINE) 10 mg tablet Take 10 mg by mouth every 6 (six) hours as needed. 2 Active SUMAtriptan (IMITREX) 25 mg tablet Take by mouth as needed. 1 Active naloxone (NARCAN) 4 mg/actuation nasal spray Administer 1 spray (4 mg total) into one nostril as needed for reversal. Use 1 spray in 1 nostril. Repeat with second device in other nostril after 2-3 minutes if no or minimal response. 2 each 2 Active Additional Information Patient not taking.Reported on 12/15/2024 pregabalin (LYRICA) 50 mg capsule Take 100 mg by mouth 2 (two) times a day. 2 Active levothyroxine 50 mcg tablet Take 50 mcg by mouth daily. 5 Active dexAMETHasone (Decadron) 4 mg tablet Take 1 tablet (4 mg total) by mouth every 12 (twelve) hours. 10 tablet 5 Active memantine (Namenda) 10 mg tablet Take 1 tablet (10 mg total) by mouth as directed. 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 Zay Watters R.N. 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 12/24/2024 11:50 AM CDT Hospital Encounter Department of Radiation Oncology in [address] [address] Gio Kiran M.D. 12/23/2024 12:20 PM CDT Hospital Encounter Department of Radiation Oncology in [address] [address] Gio Kiran M.D. 12/23/2024 11:49 AM CDT - 12/23/2024 12:19 PM CDT Hospital Encounter Department of Radiation Oncology in [address] [address] Gio Kiran M.D. 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 12/16/2024 3:12 PM CDT - 12/16/2024 11:59 PM CDT Hospital Encounter Department of Radiology in [place], [place] [address] [place] [phone] Gio Kiran M.D. 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 Secondary Malignant Neoplasm Brain (HCC) (Primary Dx) 12/14/2024 Orders Only Department of Radiology in [place], [place] [address] [place] [address] Harjeet Antonio M.D. 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 12/07/2024 Orders Only Department of Radiation Oncology in [address] [address] Laureen Leslie P.A.-C., M.S. 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 Discharge Disposition: Home or Self Care 11/19/2024 Documentation Department of Radiation Oncology in [address] [address] Gio Kiran M.D. 11/18/2024 8:07 AM CDT - 11/18/2024 11:59 PM CDT Hospital Encounter Department of Radiation Oncology in [address] [address] Gio Kiran M.D. Discharge Disposition: Home or Self Care 11/17/2024 8:03 AM CDT - 11/23/2024 9:14 PM CDT Hospital Encounter Department of Radiation Oncology in [address] [address] Leif Lozada M.D. 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 Discharge Disposition: Home or Self Care 11/16/2024 8:25 AM CDT - 11/16/2024 11:59 PM CDT Hospital Encounter Department of Radiation Oncology in [address] [address] Gio Kiran M.D. Discharge Disposition: Home or Self Care 11/15/2024 8:20 AM CDT - 11/15/2024 11:59 PM CDT Hospital Encounter Department of Radiation Oncology in [address] [address] Gio Kiran M.D. Discharge Disposition: Home or Self Care 11/12/2024 8:45 AM CDT - 11/12/2024 11:59 PM CDT Hospital Encounter Department of Radiation Oncology in [address] [address] Gio Kiran M.D. Discharge Disposition: Home or Self Care 11/11/2024 8:24 AM CDT - 11/11/2024 11:36 AM CDT Hospital Encounter Department of Radiation Oncology in [address] [address] Gio Kiran M.D. 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 Discharge Disposition: Home or Self Care 11/10/2024 8:23 AM CDT - 11/10/2024 11:59 PM CDT Hospital Encounter Department of Radiation Oncology in [address] [address] Gio Kiran M.D. Discharge Disposition: Home or Self Care 11/09/2024 8:07 AM CDT - 11/09/2024 11:59 PM CDT Hospital Encounter Department of Radiation Oncology in [address] [address] Gio Kiran M.D. Discharge Disposition: Home or Self Care 11/08/2024 8:04 AM CDT - 11/08/2024 11:59 PM CDT Hospital Encounter Department of Radiation Oncology in [address] [address] Gio Kiran M.D. Discharge Disposition: Home or Self Care 11/05/2024 9:09 AM CDT - 11/05/2024 11:59 PM CDT Hospital Encounter Department of Radiation Oncology in [address] [address] Gio Kiran M.D. Discharge Disposition: Home or Self Care 11/04/2024 7:46 AM CDT - 11/04/2024 4:38 PM CDT Hospital Encounter Department of Radiation Oncology in [address] [address] Gio Kiran M.D. 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 Discharge Disposition: Home or Self Care 11/03/2024 8:40 AM CDT - 11/03/2024 11:59 PM CDT Hospital Encounter Department of Radiation Oncology in [address] [address] Gio Kiran M.D. Discharge Disposition: Home or Self Care 11/02/2024 7:56 AM CDT - 11/02/2024 11:59 PM CDT Hospital Encounter Department of Radiation Oncology in [address] [address] Gio Kiran M.D. Discharge Disposition: Home or Self Care 11/01/2024 10:11 AM CDT - 11/01/2024 11:59 PM CDT Hospital Encounter Department of Radiation Oncology in [address] [address] Gio Kiran M.D. Discharge Disposition: Home or Self Care 10/19/2024 10:00 AM CDT - 10/19/2024 4:29 PM CDT Hospital Encounter Department of Radiation Oncology in [address] [address] Gio Kiran M.D. 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 (HCC) (Primary Dx) from Last 3 Months Family History Medical History Relation Name Comments Cancer Mother Relation Name Status Comments Mother Social History Tobacco Use Types Packs/Day Years Used Date Smoking Tobacco: Former Cigarettes 1 40 Q uit: 09/2023 Smokeless Tobacco: Never Tobacco Cessation:Counseling Given: Not Answered Alcohol Use Standard Drinks/Week Comments Yes 6 (1 standard drink = 0.6 oz pur e alcohol) Sex and Gender Information Value Date Recorded Sex Assigned at Not on file Legal Sex Male 11:53 AM [employer] Gender Identity Not on file Sexual Orientation Not on file Last Filed Vital Signs Vital Sign Reading [...] - - Body Mass Index - - Plan of Treatment Upcoming Encounters Date Type Department Care Team (Late st Contact Info) Description 12/28/2024 10:30 AM CDT Appointment Department of Radiation Oncology in [address] [address] Gio Kiran M.D. [address] [place] [phone] 12/29/2024 10:30 AM CDT Appointment Department of Radiation Oncology in [address] [address] Gio Kiran [place]. [place] [address] 12/30/2024 10:15 AM CDT Appointment Department of Radiation Oncology in [place], [place] [address] [place] [address] Gio Kiran M.D. [address] [place] [address] 12/30/2024 10:30 AM CDT Appointment Department of Radiation Oncology in [place], [place] [address] [place] [address] Gio Kiran M.D. [address] [place] [address] 12/31/2024 10:30 AM CDT Appointment Department of Radiation Oncology in [address] [address] Gio Kiran [place]. [place] [address] 01/03/2025 10:15 AM CDT Appointment Department of Radiation Oncology in [place], [place] [address] [place] [address] Gio Kiran [place]. [place] [address] 01/04/2025 10:15 AM CDT Appointment Department of Radiation Oncology in [place], [place] [address] [place] [address] Gio Kiran [place]. [place] [address] 01/05/2025 10:15 AM CDT Appointment Department of Radiation Oncology in [place], [place] [address] [place] [address] Gio Kiran [place]. [place] [address] 02/28/2025 1:00 PM [employer] Appointment Department of Radiation Oncology in [place], [place] [address] [place] [phone] Gio Kiran M.D. [address] [place] [phone] Health Maintenance Due Date Last Done Comments CT Colonography 1963 Cologuard 1963 Generalized Anxiety (MANISH-7) 1963 HIV Screening 1963 Hepatitis C Screening 1963 Pneumococcal vaccine (50+ years) (1 of 2 - PCV) 1982 Zoster Vaccines (1 of 2) 1982 COVID-19 Vaccine (3 - Moderna risk series) 09/08/2020 08/11/2020, 07/14/2020 Controlled Substance Agreement 02/07/2022 Controlled Substance Monitoring (PHQ-9) 02/07/2022 Controlled Substance Monitoring (UDS) 02/07/2022 Opioid Risk Tool (ORT) 02/07/2022 PEG assessment for Opioid therapy 02/07/2022 Opioid Use Disorder (OUD) Screening 02/07/2023 RSV vaccine - (32-36 weeks) or 60+ years (1 - Risk 60-74 years 1-dose series) 2023 Depression Screening (Annual PHQ-2) 04/21/2024 Colonoscopy 06/02/2024 06/02/2019 Colorectal Cancer Surveillance 06/02/2024 Influenza Vaccine (#1) 2024 Lipid (Cholesterol) Screening 07/05/2025 07/05/2020, 04/22/2019 Thyroid Stimulating Hormone (TSH) test for thyroid function 10/15/2025 10/15/2024, 05/18/2024, 03/29/2024, Additional history exists Creatinine Level (Kidney Function Test) 12/05/2025 12/05/2024, 12/04/2024, 12/03/2024, Additional history exists Potassium Level 12/05/2025 12/05/2024, 11/19, 12/03/2024, Additional history exists Sodium Level 12/05/2025 12/05/2024, 11/19, 12/03/2024, Additional history exists Fasting Glucose for Diabetes Screening 12/06/2027 12/05/2024, 12/04/2024, 12/03/2024, Additional history exists DTaP,Tdap,and Td Vaccines (2 - Td or Tdap) 04/22/2029 04/22/2019 Hepatitis B Screening Discontinued 07/27/2024 , 04/26/2024, 11/26/2023, Additional history exists HPV Vaccines Aged Out No longer eligi ble based on patient's age to complete this topic IPV Vaccines Aged Out No longer eligi ble based on patient's age to complete this topic Medical Devices Implanted Type Area It Software Developer Device Identifier Shelf Expiration Date Model / Serial / Lot Implantable Port-04/20/2024 Implanted:04/20 (Quantity not on file) Implantable Port Chest [id number] / / [id number] Description: [email or web address] Procedures Procedure Name Priority Date/Time Associated Diagnosis Comments [facility] DAILY TREATMENT INFORMATION Routine 12/27/2024 11:29 AM CDT [facility] DAILY TREATMENT INFORMATION Routine 12/24/2024 12:03 PM CDT [facility] DAILY TREATMENT INFORMATION Routine 12/23/2024 12:58 PM CDT MR BRAIN WITHOUT AND WITH IV CONTRAST RAD - Routine (most inpatients and all outpatients) 12/16/2024 4:23 PM CDT 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 (HCC) INITIAL RAD ONC TREATMENT PLANNING CT SIMULATION Routine 12/15/2024 1:30 PM CDT 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 (HCC) [facility] COURSE COMPLETE TREATMENT INFORMATION Routine 11/19/2024 8:32 AM CDT [facility] DAILY TREATMENT INFORMATION Routine 11/19/2024 8:32 AM CDT [facility] DAILY TREATMENT INFORMATION Routine 11/18/2024 8:35 AM CDT [facility] DAILY TREATMENT INFORMATION Routine 11/17/2024 8:16 AM CDT [facility] DAILY TREATMENT INFORMATION Routine 11/16/2024 8:39 AM CDT [facility] DAILY TREATMENT INFORMATION Routine 11/15/2024 8:50 AM CDT [facility] DAILY TREATMENT INFORMATION Routine 11/12/2024 9:45 AM CDT [facility] DAILY TREATMENT INFORMATION Routine 11/11/2024 8:41 AM CDT [facility] DAILY TREATMENT INFORMATION Routine 11/10/2024 8:34 AM CDT [facility] DAILY TREATMENT INFORMATION Routine 11/09/2024 8:36 AM CDT [facility] DAILY TREATMENT INFORMATION Routine 11/08/2024 8:28 AM CDT [facility] DAILY TREATMENT INFORMATION Routine 11/05/2024 9:40 AM CDT [facility] DAILY TREATMENT INFORMATION Routine 11/04/2024 8:19 AM CDT [facility] DAILY TREATMENT INFORMATION Routine 11/03/2024 9:18 AM CDT [facility] DAILY TREATMENT INFORMATION Routine 11/02/2024 8:22 AM CDT [facility] DAILY TREATMENT INFORMATION Routine 11/01/2024 10:53 AM CDT OUTSIDE MR NEURO Routine 10/27/2024 7:00 AM CDT INITIAL RAD ONC TREATMENT PLANNING CT SIMULATION Routine 10/19/2024 10:12 AM CDT 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 (HCC) INITIAL RAD ONC TREATMENT PLANNING CT SIMULATION Routine 10/19/2024 10:00 AM CDT 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 Course ID [id number] [facility]A Course Start Date 5 08:23 CDT [facility] First Treatment Date 5 12:53 CDT [facility] Last Treatment Date 5 11:29 CDT [facility] Treatment Elapsed Days 4 [facility]A Reference Point [id number] [facility] Dosage Given to Date cGy 900 [facility] Session Dosage Given 300 [facility] Plan ID [id number] [facility]A Fractions Treated to Date 3 [facility]A Planned Total Fractions 10 [facility]A Prescribed Dose Per Fraction 300 [facility]A Prescription Dose in cGy 3000 MEDINA ARIA Plan Primary Reference Point [id number] MEDINA ARIA 12/27/2024 11:2 9 AM CDT us Provider Not In System RADIATION ONCOLOGY ORDERA BLES Final Result CAROL VIRAMONTES na * MR Brain without and with IV [...] Planning CT Simulation (12/15/2024 1:30 PM CDT) Only the most recent of3 resultswithin the time period is included. Narrative [facility] - 12/15/2024 1:30 PM Gio Wilks M.D. 12/17/2024 3:36 PM Initial Rad Onc [...] planning. CT images were transferred to the [employer] treatment planning system, after a reference isocenter was determined and marked. Segmentation and treatment planning will take place prior to treatment delivery. Patient set up and imaging was appropriate and completed without incident. Busser use:No us Gio Kiran M.D. RADIATION ONCOLOGY ORDER DALLIN Final Result [facility] na * Critical Access Hospital Course Complete Treatment Information (11/19/2024 8:32 AM CDT) Course ID [id number] r [facility] Course Start Date 5 15:45 CDT [facility] Course End Date 5 14:03 CDT [facility] First Treatment Date 5 10:51 CDT [facility] Last Treatment Date 5 08:32 CDT [facility] Treatment Elapsed Days 18 [facility] Reference Point [id number] [facility] Dosage Given to Date cGy 6000 [facility] Plan ID [id number] [facility] Fractions Treated to Date 15 [facility] Planned Total Fractions 15 [facility] Prescribed Dose Per Fraction 400 [facility] Prescription Dose in cGy 6000 [facility] Plan Primary Reference Point [id number] [facility] VIRAMONTES 11/19/2024 8:32 AM CDT us Provider Not In System RADIATION ONCOLOGY ORDERA BLES Final Result CAROL VIRAMONTES na * Outside MR Neuro (10/27/2024 7:00 AM CDT) 10/27/2024 2:59 PM CDT Addenda Addendum by [employer], Outside on 10/27/2024 2:56 PM CDT BELOW REPORT RECEIVED BY [facility] ON 10/27/2024 15:04:39 [id number] For Patients: As a result of the Century Cures Act, medical imaging exams and procedure reports are released immediately into your electronic medical record. You may view this report before your referring provider. If you have questions, please contact your health care provider. EXAM: MR SPINE THORACIC WWO LOCATION: [facility] DATE: 10/27/2024 INDICATION: Malignant Neoplasm of Lung [...] x 5.7 cm, similar to prior PET/CT. Impression: 1. Negative for thoracic spine metastatic disease. 2. Mild degenerative changes without spinal canal or neural foraminal stenosis. 3. Left upper lobe mass, similar to prior PET/CT. 15 READ BY Lino Redman RELEASED BY [facility] - 10/27/2024 9:01 AM CDT This order has been created and auto-finalized to support the import of outside images. If available, original interpretation can be found on the Media Tab in Chart Review, in Document Viewer, as an image in InfinityView or as an Addendum. If a re-interpretation or overread is required please follow defined workflow. Procedure Note [employer], Outside - 10/27/2024 This order has been created and auto-finalized to support the import ofoutside images. If available, original interpretation can be found on theMedia Tab in Chart Review, in Document Viewer, as an image in InfinityViewor as an Addendum. If a re-interpretation or overread is required please follow definedworkflow. us Provider Not In System IMG MRI PROCEDURES Edited Result - Final IMAGING NA * Interpretation of Outside NM PET Scan (10/11/2024 9:42 AM CDT) Anatomical Region Laterality Modality Nuclear Medicine PET RST LOS , Nuclear Medicine ARZ LOS, Nuclear Medicine FLA LOS, Nuclear Medicine, Other, Neuroradiology ARZ LOS, Neuroradiology FLA LOS, Neuroradiology RST LOS, Body N/A Nuclear Medicine Impressions 10/13/2024 4:47 AM CDT 1. Interval increase of the heterogeneous intensely avid malignancy in the left apex which is in contact with the pleura. 2. New patchy opacity with increased FDG activity in the in the left upper lobe anteriorly has shifted since outside CT chest 09/16/2024 and could be infectious/inflammatory nature. Recommend short-term follow-up to ensure resolution/stability 3. Trace left pleural effusion with adjacent dependent atelectasis and mild FDG activity is nonspecific. Findings #2 and #3 are indeterminate, could be infectious/inflammatory nature, not typical macroscopic pleural metastases. Given the direct contact of the left apical lesion to the adjacent pleura, pleural invasion is possible. 4. Indeterminate asymmetric uptake in the right nasopharynx mucosa, indeterminate, could be inflammatory nature. 5. No evidence of extrathoracic FDG avid metastatic disease. Narrative 10/13/2024 4:47 AM CDT EXAM: INTERPRETATION OF OUTSIDE NM PET SCAN dated 10/07/2024. TECHNIQUE: F-18 Fluorodeoxyglucose (FDG) PET/CT scan was performed from the orbits through the thighs with CT fusion imaging for attenuation correction and anatomic coregistration only. COMPARISON: Outside PET/CT 09/19/2023 and 05/30/2023. Outside CT chest , abdomen and pelvis 09/16/2024. INDICATION: Restaging recurrent lung cancer. Small cell lung cancer of the left lung apex diagnosed in 2021, a status post chemoradiation. Recurrent/relapse disease in 2023. Ongoing chemotherapy. Subsequent treatment strategy. FINDINGS: Interval increase in size of the heterogeneous intensely avid mass in the left apex with SUV max of 13.7 (axial fused image 90) compared to previous SUV max of 12.7. New patchy pulmonary opacity with moderate FDG activity in the anterior left upper lobe (axial fused image 110) which has slightly shifted since CT chest 09/16/2024. New trace left pleural effusion and/or thickening with low level uptake (series 301, image 132). No distinct hypermetabolic lymphadenopathy. No suspicious focal hepatic lesions. Unchanged hypodense left adrenal nodule measuring 20 mm (series 202, image 168) with low level FDG activity with SUV max of 2.9 most suggestive of adrenal adenoma. New asymmetric increased uptake in the right nasopharynx with SUV max of 7.3 (series 301, image 42), indeterminate, could be inflammatory. Linear uptake in the esophagus favored to be inflammatory nature. Incidental findings on low-dose unenhanced CT fused images: Right Port-A-Cath with tip in the low SVC dilatation of the ascending aorta measuring 47 mm. Moderate coronary artery and aortic valve calcifications. Upper lung predominant moderate emphysema. Aortoiliac calcifications. Colonic diverticulosis. Mild degenerative change of the spine. Procedure Note Zenaida Soler M.D. - 10/13/2024 EXAM: INTERPRETATION OF OUTSIDE NM PET SCAN dated 10/07/2024. TECHNIQUE: F-18 Fluorodeoxyglucose (FDG) PET/CT scan was performed fromthe orbits through the thighs with CT fusion imaging for attenuationcorrection and anatomic coregistration only. COMPARISON: Outside PET/CT 09/19/2023 and 05/30/2023. Outside CT chest ,abdomen and pelvis 09/16/2024. INDICATION: Restaging recurrent lung cancer. Small cell lung cancer of theleft lung apex diagnosed in 2021, a status post chemoradiation.Recurrent/relapse disease in 2023. Ongoing chemotherapy. Subsequenttreatment strategy. FINDINGS: Interval increase in size of the heterogeneous intensely avid mass in theleft apex with SUV max of 13.7 (axial fused image 90) compared to previousSUV max of 12.7. New patchy pulmonary opacity with moderate FDG activity in the anteriorleft upper lobe (axial fused image 110) which has slightly shifted sinceCT chest 09/16/2024. New trace left pleural effusion and/or thickening with low level uptake(series 301, image 132). No distinct hypermetabolic lymphadenopathy. No suspicious focal hepatic lesions. Unchanged hypodense left adrenal nodule measuring 20 mm (series 202, [id number]) with low level FDG activity with SUV max of 2.9 most suggestive ofadrenal adenoma. New asymmetric increased uptake in the right nasopharynx with SUV max of7.3 (series 301, image 42), indeterminate, could be inflammatory. Linear uptake in the esophagus favored to be inflammatory nature. Incidental findings on low-dose unenhanced CT fused images: [id number] with tip in the low SVC dilatation of the ascending aortameasuring 47 mm. Moderate coronary artery and aortic valve calcifications.Upper lung predominant moderate emphysema. Aortoiliac calcifications. Colonic diverticulosis. Mild degenerativechange of the spine. IMPRESSION: 1. Interval increase of the heterogeneous intensely avid malignancy inthe left apex which is in contact with the pleura. 2. New patchy opacity with increased FDG activity in the in the leftupper lobe anteriorly has shifted since outside CT chest 09/16/2024 andcould be infectious/inflammatory nature. Recommend short-term follow-up toensure resolution/stability 3. Trace left pleural effusion with adjacent dependent atelectasis andmild FDG activity is nonspecific. Findings #2 and #3 are indeterminate,could be infectious/inflammatory nature, not typical macroscopic pleuralmetastases. Given the direct contact of the left apical lesion to the adjacent pleura, pleural invasion ispossible. 4. Indeterminate asymmetric uptake in the right nasopharynx mucosa,indeterminate, could be inflammatory nature. 5. No evidence of extrathoracic FDG avid metastatic disease. us Leif GAN NM PROCEDURES Final Re sult * Interpretation of Outside CT Chest (10/11/2024 9:41 AM CDT) Anatomical Region Laterality Modality Chest, Thoracic RST LOS, Tho racic ARZ LOS, Thoracic FLA LOS, Other, Body N/A Computed Tomography Impressions 10/12/2024 5:42 PM CDT 1. Interval enlargement of a ~5.3 cm juxtapleural mass in the posteromedial left upper lobe. 2. This examination was performed in conjunction with a CT of the abdomen, with those results not reported here. Narrative 10/12/2024 5:42 PM CDT EXAM: INTERPRETATION OF OUTSIDE CT CHEST dated the 09/16/2024, with IV contrast. COMPARISON: Ultrasound 07/06/2024. FINDINGS: Interval enlargement of infiltrative juxtapleural mass in the posteromedial left upper lobe, measuring up to 5.3 x 3.7 cm, with partial calcified nodular thickening extending to the left lung apex (series 4 image 77) and increased nodular component abutting the mediastinum at the level of the aortic arch (series 4 image 87). Localized paraseptal emphysema rather than cavitation about the inferior margin of the lesion. Background severe mid and upper lung predominant paraseptal and centrilobular emphysema. Bibasilar atelectasis. Scattered subcentimeter lymph nodes in the chest, without adenopathy. Right chest Port-A-Cath, tip termination lower SVC. Similar dilatation ascending thoracic artery measuring 47 mm. Coronary artery calcification. Trace pericardial fluid and/or thickening. Tiny hiatal hernia. No substantial pleural effusion. Skeletal degenerative changes. Procedure Note Hardik Raya M.B., B.Ch. - 10/12/2024 EXAM: INTERPRETATION OF OUTSIDE CT CHEST dated the 09/16/2024, with IVcontrast. COMPARISON: Ultrasound 07/06/2024. FINDINGS: Interval enlargement of infiltrative juxtapleural mass in theposteromedial left upper lobe, measuring up to 5.3 x 3.7 cm, with partialcalcified nodular thickening extending to the left lung apex (series 4image 77) and increased nodular component abutting the mediastinum at the level of the aortic arch (series 4 image87). Localized paraseptal emphysema rather than cavitation about theinferior margin of the lesion. Background severe mid and upper lung predominant paraseptal andcentrilobular emphysema. Bibasilar atelectasis. Scattered subcentimeter lymph nodes in the chest, without adenopathy. Right chest Port-A-Cath, tip termination lower SVC. Similar dilatationascending thoracic artery measuring 47 mm. Coronary artery calcification.Trace pericardial fluid and/or thickening. Tiny hiatal hernia. Nosubstantial pleural effusion. Skeletal degenerative changes. IMPRESSION: 1. Interval enlargement of a ~5.3 cm juxtapleural mass in theposteromedial left upper lobe. 2. This examination was performed in conjunction with a CT of the abdomen,with those results not reported here. us Leif GAN CT PROCEDURES Final Re sult * Outside NM Pet (10/07/2024 9:45 AM CDT) 10/07/2024 10:5 9 AM CDT Addenda Addendum by [employer], Outside on 10/07/2024 10:56 AM CDT BELOW REPORT RECEIVED BY [facility] ON 10/07/2024 13:02:46 [id number] For Patients: As a result of the Century Cures Act, medical imaging exams and procedure reports are released immediately into your electronic medical record. You may view this report before your referring provider. If you have questions, please contact your health care provider. EXAM: PET CT SKULL BASE TO MID THIGH SUBSEQUENT TREAT LOCATION: [facility] DATE: 10/07/2024 INDICATION: Subsequent treatment planning and [...] hernia. Multilevel degenerative changes in the spine Impression: Progressive disease. READ BY Fredy Anaya RELEASED BY ANAYA Addendum by [employer], Outside on 10/07/2024 10:56 AM CDT BELOW REPORT RECEIVED BY [facility] ON 10/07/2024 12:58:36 [id number] For Patients: As a result of the Century Cures Act, medical imaging exams and procedure reports are released immediately into your electronic medical record. You may view this report before your referring provider. If you have questions, please contact your health care provider. EXAM: PET CT SKULL BASE TO MID THIGH SUBSEQUENT TREAT LOCATION: [facility] DATE: 10/07/2024 INDICATION: Subsequent treatment planning and [...] hernia. Multilevel degenerative changes in the spine Impression: Progressive disease. READ BY Fredy Anaya RELEASED BY [employer] Addendum by [employer], Outside on 10/07/2024 10:56 AM CDT BELOW REPORT RECEIVED BY [facility] ON 10/07/2024 12:56:56 [id number] For Patients: As a result of the 21st Century Cures Act, medical imaging exams and procedure reports are released immediately into your electronic medical record. You may view this report before your referring provider. If you have questions, please contact your health care provider. EXAM: PET CT SKULL BASE TO MID THIGH SUBSEQUENT TREAT LOCATION: [facility] DATE: 10/07/2024 INDICATION: Subsequent treatment planning and [...] hernia. Multilevel degenerative changes in the spine Impression: Progressive disease. READ BY Fredy Anaya RELEASED BY HÉCTOR Narrative IMAGING - 10/07/2024 1:29 PM CDT This order has been created and auto-finalized to support the import of outside images. If available, original interpretation can be found on the Media Tab in Chart Review, in Document Viewer, as an image in InfinityView or as an Addendum. If a re-interpretation or overread is required please follow defined workflow. Procedure Note [employer], Outside - 10/07/2024 This order has been created and auto-finalized to support the import ofoutside images. If available, original interpretation can be found on theMedia Tab in Chart Review, in Document Viewer, as an image in InfinityViewor as an Addendum. If a re-interpretation or overread is required please follow definedworkflow. us Provider Not In System IMG NM PROCEDURES Edited Result - Final IMAGING NA from Last 3 Months Insurance [facility] MEDICARE
--- OUTSIDE RECORDS SUMMARY | 2024-12-27 12:05 | XMS_ITS ---
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 Past Treatment and Therapy Plans No past plan information found. Current Radiation Episodes * Radiation Therapy: Left BrainOverview* First Treatment Date Latest Treatment Date Treatment Site Technique Goal Episode Provider 12/23/2024 12/27/2024 Left Brain Curative * Linked Problems Malignant Neoplasm Of Lung S mall Cell Left * Episode Note I once again called the patient and left a voice message. I have not received response from my call on Friday. I have alerted the front office secretary that it would like to speak to the patient tomorrow before treatment. Treatment Courses* Course 3xWhBrain 12/23/2024 - 12/27/2024 Treatment Period Fraction Dose Fractions Total Dose Plans Planned [id number] 12/23/2024 - 12/27/2024 300 cGy 3 / 10 3 ,000 cGy Reference Points Delivered [id number] 12/23/2024 - 12/27/2024 900 cGy Past Radiation Episodes * IMRT: Left LungOverview* First Treatment Date Last Treatment Date Treatment Site Technique Goal Episode Provider 11/01/2024 11/19/2024 Left Lung IMRT Palliative * Linked Problems Malignant Neoplasm Of Lung S mall Cell Left Treatment Courses* Course 2xLungUppr 11/01/2024 - 11/19/2024 Treatment Period Fraction Dose Fractions Total Dose Plans Planned [id number] 11/01/2024 - 11/19/2024 400 cGy 15 / 15 6,000 cGy Reference Points Delivered [id number] 11/01/2024 - 11/19/2024 6,000 cGy * IMRT: Left LungOverview* First Treatment Date Last Treatment Date Treatment Site Technique Goal Episode Provider 02/27/2022 03/21/2022 Left Lung IMRT Curative * Linked Problems Malignant Neoplasm Of Lung S mall Cell Left Treatment Courses* Course 1xLung 02/27/2022 - 03/21/2022 Treatment Period Fraction Dose Fractions Total Dose Plans Planned [id number] 02/27/2022 - 03/21/2022 150 cGy 30 / 30 4 ,500 cGy Reference Points Delivered [id number] 02/27/2022 - 03/21/2022 4,500 cGy
--- OUTSIDE RECORDS SUMMARY | 2024-12-27 12:06 | XMS_ITS | Encounter Summary ---
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 - 12/17/2024 3:55 PM CDT I received a message from the patient's radiologist that he had an increasing midline shift. I reviewed the data available from the recent prior scans and although those images were not available he did appear to have a midline shift at that time which may have worsened in the interim. There appears to be significant edema therefore I called in a prescription for dexamethasone 4 mg b.i.d. to the patient's pharmacy and then called the patient and left a message on his answering machine informinghim of the prescription and the swelling. I then attempted to call him again to speak to him in person with no answer. documented in this encounter Plan of Treatment Upcoming Encounters Date Type Department Care Team (Late st Contact Info) Description 12/28/2024 10:30 AM CDT Appointment Department of Radiation Oncology in [address] [phone] Gio Kiran M.D. [address] [place] [phone] 12/29/2024 10:30 AM CDT Appointment Department of Radiation Oncology in [address] [phone] Gio Kiran M.D. [address] [place] [phone] 12/30/2024 10:15 AM CDT Appointment Department of Radiation Oncology in [address] [phone] Gio Kiran M.D. [address] [place] [phone] 12/30/2024 10:30 AM CDT Appointment Department of Radiation Oncology in [address] [phone] Gio Kiran M.D. [address] [place] [phone] 12/31/2024 10:30 AM CDT Appointment Department of Radiation Oncology in [address] [phone] Gio Kiran [place] [address] 01/03/2025 10:15 AM CDT Appointment Department of Radiation Oncology in [place], [place] [address] [place] [address] [place] [phone] Gio Kiran M.D. [address] [place] [address] 01/04/2025 10:15 AM CDT Appointment Department of Radiation Oncology in [address] [phone] Gio Kiran [place] [address] 01/05/2025 10:15 AM CDT Appointment Department of Radiation Oncology in [address] [phone] Gio Kiran [place] [phone] 02/28/2025 1:00 PM MOLECULAR PATHOLOGIST Appointment Department of Radiation Oncology in [address] [place] [phone] Gio Kiran [place] [address] documented as of this encounter Visit Diagnoses Not on filedocumented in this encounter
--- NOTE | 2024-12-27 12:47 | ED.NEUROSD ---
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 Eric is noted to have an uneventful surgery. His states that she has noticed that he seems to be more weak on his right side. She started noticing this over the weekend. She thought he had a facial droop as well. Notes that last night when he was trying to feed himself he seemed to have weakness in his right arm. Eric himself does not notice any weakness. He has not fallen. Nurse practitioner with whom I speak tells me that patient had a history of lung cancer adenocarcinoma. Rounds notes that she did not know that she was supposed to have picked up his steroids last December 23. Therefore patient has not been on steroids. She only learned of this prescription today. 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 Tobacco use Current medications amitriptyline Synthroid Lisinopril Namenda Zyprexa Zofran Oxycodone Lyrica Compazine Imitrex Related Data Home Medications ?Medication ?Instructions ?Recorded ?Confirmed amitriptyline 25 mg tablet mg 12/27/24 levothyroxine .ROUTE 12/27/24 pregabalin .ROUTE 12/27/24 Review of Systems Status of ROS: Reports: 10 or more systems reviewed and unremarkable except as noted in History and below Const: Denies: fever or chills Eyes: Denies: change in vision or blurry vision ENMT: Denies: throat pain, neck pain or nasal congestion Cardio: Denies: chest pain or shortness of breath with exertion Resp: Denies: shortness of breath or cough GI: Denies: abdominal pain, nausea or vomiting : Denies: painful urination Musculo: Denies: back pain or neck pain Neuro: Reports: weakness in extremities; Denies: headache or numbness in extremities [facility] Social History Smoking Status: Former smoker What tobacco products do you use: cigarettes Smoking quit date/years: <= 15 years ago How often do you have a drink containing alcohol: never AUDIT-C Alcohol total score: 0 Non-prescribed substance use: denies use Exam Narrative: Exam Narrative: Eric is alert. Not very talkative but appropriate in speech. EOM is full pupils equal round reactive. Scalp shows a large healing surgical wound over the left frontal parietal scalp. No evidence of drainage unusual erythema or edema. Face is with a right facial droop. Tongue is midline. Eyebrows raise symmetrically. Heart with regular rate and rhythm and lungs are without wheezes or rales. Abdomen soft. He can move all of his extremities. I did find that upper extremities have symmetrical strength upon exam. However then I do note that he is having a hard time lifting his right arm in order to touch his face. His right hip flexion is decreased compared to the left as is dorsiflexion and plantar flexion of the right ankle. Const: Vital Signs, click to edit/add: Vital Signs - 24 hr 12/27/24 12:03 12/27/24 15:25 12/27/24 17:42 Temperature 97.8 F 98.4 F 98.7 F Pulse Rate [Right Pulse Oximeter] 67 63 68 Respiratory Rate 18 18 18 Blood Pressure [Ri ght Upper Arm] 125/84 136/78 131/80 Pulse Oximetry 97 97 95 Oxygen Delivery Me thod Room Air Room Air Room Air Documenting provider has reviewed patient's vital signs: yes Course Course ED Course: Differential diagnosis does include stroke, intracranial complication from surgery. No evidence of a seizure today. At this time a will speak to Neurosurgery at [place] regarding CT versus MRI. Reevaluation(s) Reevaluation #1: No changes in patient's status however he is very hungry. I have received clearance for him to eat from the neurosurgery group. Have also added labs to include CBC and comprehensive as well as CRP. Consultations Consultation #1: At the pleasure of speaking with GERA Madrigal with Neurosurgery Dr. Olmos's group at [place]. At this time she is concerned about edema and recommends dexamethasone 4 mg which we have given patient. Initially recommends MRI with and without contrast of the brain. Consultation #2: Patient in MRI when neuro surgery returns phone call. Unfortunately comparison of the CT with previous show increased swelling and left to right deviation of [address] Olmos suggest additional 6 mg of IV dexamethasone and transfer to [facility] neuro ICU. Vital Signs Vital signs: Initial Vital Signs Temperature 97.8 F 12/27/24 12:03 Temperature Source Temporal Artery Scan 12/27/24 12:03 Pulse Rate 67 12/27/24 12:03 Pulse Rhythm Regular 12/27/24 12:03 Pulse Strength 3+ Normal 12/27/24 12:03 Respiratory Rate 18 12/27/24 12:03 Blood Pressure 125/84 12/27/24 12:03 Blood Pressure Mean 97 12/27/24 12:03 Blood Pressure Position Sitting 12/27/24 12:03 Pulse Oximetry 97 12/27/24 12:03 Oxygen Delivery Method Room Air 12/27/24 12:03 Vital Signs Temperature 97.8 F 12/27/24 12:03 Pulse Rate 67 12/27/24 12:03 Respiratory Rate 18 12/27/24 12:03 Blood Pressure 125/84 12/27/24 12:03 Pulse Oximetry 97 12/27/24 12:03 Oxygen Delivery Method Room Air 12/27/24 12:03 Temperature 98.7 F 12/27/24 17:42 Pulse Rate 68 12/27/24 17:42 Respiratory Rate 18 12/27/24 17:42 Blood Pressure 131/80 12/27/24 17:42 Pulse Oximetry 95 12/27/24 17:42 Oxygen Delivery Method Room Air 12/27/24 17:42 Medications Administered Medications: Discontinued Medications Generic Name Dose Route Start Last Admin Trade Name Freq PRN Reason Stop Dose Admin Dexamethasone 4 mg 12/27/24 15:37 12/27/24 16:06 Dexamethasone 4 Mg/Ml Vial IVP 12/27/24 15:38 4 mg ONCE ONE Administration Dexamethasone 6 mg 12/27/24 16:57 12/27/24 17:22 Dexamethasone 4 Mg/Ml Vial IVP 12/27/24 16:58 6 mg ONCE ONE Administration MDM - Neuro Symptoms/Deficit MDM Narrative Medical decision making narrative: 1. Right-sided weakness -likely secondary to cerebral edema. CT unfortunately shows increased cerebral edema with mass effect 13 mm shift from left to right. Mixed density fluid accumulation beneath the craniotomy measuring approximately 9 mm may represent subdural, hematoma versus an abscess. Patient is given a total of 10 mg IV dexamethasone and will be transferred to [facility]. I did specifically ask about Keppra are other seizure prophylaxis and at this time given no history of seizures consultants have advised to hold off on that. 2. Small cell lung carcinoma with metastases 3. Disposition-patient will be ground ambulance ALS transfer to [facility]. Dr. Davis is the accepting hospitalist. Currently waiting for bed and then will transfer. Medical Records Attestation: I reviewed the patient's medical records. Medical records narrative: No records available in our system, but able to get some records from [place]. Lab Data Attestation: I reviewed the patient's lab results. Labs: Lab Results 12/27/24 Range/Units 16:11 WBC 3.73 L (4.50-11.00) K/uL RBC 4.07 L (4.30-5.90) m/uL Hgb 12.4 L (13.5-17.5) gm/dL Hct 38.2 (37.0-53.0) % MCV 94 (80-100) fL MCH 31 (26-34) pg MCHC 33 (32-36) gm/dL RDW Coeff of Joanna 14.5 (11.5-15.5) % Plt Count 151 (140-440) K/uL Neut % (Auto) 63.0 (42.0-72.0) % Lymph % (Auto) 25.2 (20-44) % [place] % (Auto) 9.4 (0.0-11.0) % Eos % (Auto) 2.1 (0.0-7.0) % Baso % (Auto) 0.3 (0.0-3.0) % Neut # (Auto) 2.30 (1.7-7.0) K/uL Lymph # (Auto) 0.90 (0.90-2.90) K/uL [place] # (Auto) 0.40 (0.00-0.90) K/UL Eos # (Auto) 0.10 (0.00-0.50) K/uL Baso # (Auto) 0.00 (0.00-0.30) K/uL Abs Immat Gran (auto) 0.00 (0.00-0.30) K/uL Imm/Tot Granulo (auto) 0.0 % Sodium 137 (135-149) mmol/L Potassium 3.9 (3.6-5.1) mmol/L Chloride 102 (96-114) mmol/L Carbon Dioxide 27 (20-32) mmol/L Anion Gap 8 (7-15) mEq/L BUN 21 (7-30) mg/dL Creatinine 1.0 (0.5-1.5) mg/dL Estimated Creat Clear 72.53 Estimated GFR 86 ml/min Glucose 99 (60-115) mg/dL Calcium 9.4 (8.4-10.6) mg/dL Total Bilirubin 1.0 (0.1-1.5) mg/dL AST 29 (12-35) U/L ALT 21 (4-50) U/L Alkaline Phosphatase 109 (40-150) U/L C-Reactive Protein 1.7 H (0.5-1.0) mg/dL Total Protein 8.1 (6.0-8.3) g/dL Albumin 4.2 (3.3-5.0) g/dL Imaging Data CT scan - head: Attestation: I have reviewed the pertinent imaging results. My impression: Significant [id number] shift. Radiologist's impression: There is ill-defined vasogenic edema in the left frontal lobe, basal ganglia and temporal parietal region causing mass effect with compression of the left lateral ventricle and [id number] midline shift of 13 mm at the level of the septum pellucidum. Mixed density subdural collection in the left frontotemporal region subjacent to the craniotomy measures up to 9 mm on axial image 34 of series 2. Hyperdense foci associated with the collection may represent blood products. No acute intraparenchymal hemorrhage. Slight asymmetric enlargement of the right lateral ventricle may reflect early entrapment. Bone windows show no acute or suspicious osseous abnormality. Left pterional craniotomy. Paranasal sinuses and orbits as imaged are unremarkable. No fluid collection associated with the craniotomy. IMPRESSION: 1. Extensive left hemispheric vasogenic edema concerning for underlying neoplasm causes compression of the left lateral ventricle and 13 mm of midline shift at the level of the septum pellucidum. Possible early entrapment of the right lateral ventricle. 2. Subdural collection adjacent to the craniotomy may reflect evolving subdural hematoma/postoperative change. However, differential considerations include subdural abscess. Comparison with outside imaging and/or follow-up MRI brain without and with contrast recommended. MRI of brain with and without contrast: Attestation: I have reviewed the pertinent imaging results. Radiologist's impression: Multiplanar multisequence MR imaging of the brain prior to and following intravenous administration of 15 mL Dotarem. Comparison: CT brain 12/27/2024. Findings: Postsurgical changes of left frontotemporal craniotomy. Subdural fluid collection subjacent to the craniotomy flap measuring up to 14 mm in thickness and demonstrates heterogeneous T1 shortening and susceptibility most compatible with evolving blood products. There is mass effect on adjacent parenchyma. Heterogeneously enhancing lesion within the lateral left frontal lobe, left operculum, and superior left temporal lobe measuring 5.7 x 3.9 x 2.8 cm (CC/AP/TR). Scattered foci of intralesional susceptibility maybe secondary to blood products and/or mineralization. Extensive confluent FLAIR hyperintensity/edema within the left cerebral white matter. Mass effect results in unchanged severe effacement of the lateral ventricular bodies and frontal horns, 13 mm rightward midline shift of the septum pellucidum, and a mild degree of left uncal herniation. No diffusion restriction to suggest acute infarction. The major arterial flow voids of the skull base are preserved. Globes are symmetric. Small right maxillary sinus retention cyst. Trace mastoid fluid bilaterally. Impression: 1. Heterogeneously enhancing 5.7 cm lesion within the lateral left frontal lobe, left operculum, and superior left temporal lobe, compatible with neoplasm. Extensive perilesional FLAIR hyperintensity/edema contributes to persistent severe lateral ventricular effacement and 13 mm rightward midline shift. 2. Postsurgical changes of left frontotemporal craniotomy. Subdural fluid collection subjacent to the craniotomy flap is most compatible with evolving blood products. 3. No acute infarction. Critical Care Time Critical Care Time Critical Care Time: Yes Attestation: The patient required my highest level preparedness to intervene emergently and I personally spent this critical care time directly and personally managing the patient. This critical care time included: Obtaining a history; Examining the patient; Pulse oximetry; Ordering and reviewing of studies; Arranging urgent treatment with development of a management plan; Evaluation of patients response to treatment; Frequent reassessment discussions with other providers. This critical care time was performed to assess and manage the high probability of imminent life-threatening deterioration that could result in multiorgan failure. It was exclusive of separate billable procedures and treating other patients and teaching time. 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
--- NOTE | 2024-12-27 13:28 | CRLHL7_ITS ---
For Patients: As a result of the Century Cures Act, medical imaging exams and procedure reports are released immediately into your electronic medical record. You may view this report before your referring provider. If you have questions, please contact your health care provider. Indication: Right-sided weakness. Technique: Multiplanar multisequence MR imaging of the brain prior to and following intravenous administration of 15 mL Dotarem. Comparison: CT brain 12/27/2024. Findings: Postsurgical changes of left frontotemporal craniotomy. Subdural fluid collection subjacent to the craniotomy flap measuring up to 14 mm in thickness and demonstrates heterogeneous T1 shortening and susceptibility most compatible with evolving blood products. There is mass effect on adjacent parenchyma. Heterogeneously enhancing lesion within the lateral left frontal lobe, left operculum, and superior left temporal lobe measuring 5.7 x 3.9 x 2.8 cm (CC/AP/TR). Scattered foci of intralesional susceptibility maybe secondary to blood products and/or mineralization. Extensive confluent FLAIR hyperintensity/edema within the left cerebral white matter. Mass effect results in unchanged severe effacement of the lateral ventricular bodies and frontal horns, 13 mm rightward midline shift of the septum pellucidum, and a mild degree of left uncal herniation. No diffusion restriction to suggest acute infarction. The major arterial flow voids of the skull base are preserved. Globes are symmetric. Small right maxillary sinus retention cyst. Trace mastoid fluid bilaterally. Impression: 1. Heterogeneously enhancing 5.7 cm lesion within the lateral left frontal lobe, left operculum, and superior left temporal lobe, compatible with neoplasm. Extensive perilesional FLAIR hyperintensity/edema contributes to persistent severe lateral ventricular effacement and 13 mm rightward midline shift. 2. Postsurgical changes of left frontotemporal craniotomy. Subdural fluid collection subjacent to the craniotomy flap is most compatible with evolving blood products. 3. No acute infarction. Dictated by Chuy Zhou MD @ 12/27/2024 5:31:53 PM (Electronically Signed)
--- NOTE | 2024-12-27 14:23 | CRLHL7_ITS ---
For Patients: As a result of the Century Cures Act, medical imaging exams and procedure reports are released immediately into your electronic medical record. You may view this report before your referring provider. If you have questions, please contact your health care provider. INDICATION: Right-sided weakness. Facial droop. Prior craniotomy. TECHNIQUE: CT head without contrast. COMPARISON: None. FINDINGS: There is ill-defined vasogenic edema in the left frontal lobe, basal ganglia and temporal parietal region causing mass effect with compression of the left lateral ventricle and [id number] midline shift of 13 mm at the level of the septum pellucidum. Mixed density subdural collection in the left frontotemporal region subjacent to the craniotomy measures up to 9 mm on axial image 34 of series 2. Hyperdense foci associated with the collection may represent blood products. No acute intraparenchymal hemorrhage. Slight asymmetric enlargement of the right lateral ventricle may reflect early entrapment. Bone windows show no acute or suspicious osseous abnormality. Left pterional craniotomy. Paranasal sinuses and orbits as imaged are unremarkable. No fluid collection associated with the craniotomy. IMPRESSION: 1. Extensive left hemispheric vasogenic edema concerning for underlying neoplasm causes compression of the left lateral ventricle and 13 mm of midline shift at the level of the septum pellucidum. Possible early entrapment of the right lateral ventricle. 2. Subdural collection adjacent to the craniotomy may reflect evolving subdural hematoma/postoperative change. However, differential considerations include subdural abscess. Comparison with outside imaging and/or follow-up MRI brain without and with contrast recommended. Discussed with Dr. Apodaca by telephone at 3:20 p.m. on 12/27/2024. Dictated by Hever Ramsey MD @ 12/27/2024 3:23:15 PM Please note that all CT scans at this facility use dose modulation, iterative reconstruction, and/or weight-based dosing when appropriate to reduce radiation dose to as low as reasonably achievable. Dictated by: Hever Ramsey MD @ 12/27/2024 15:23:45 (Electronically Signed)
[2024-12-27 15:25] VITALS: BP 136/78; PULSE 63; RESP 18; TEMP 36.9; O2SAT 97
[2024-12-27 16:20] LABS: Hematocrit* 38.2 % (37.0-53.0); Hemoglobin* 12.4 gm/dL (13.5-17.5); Immature Granulocytes Abs Auto 0.00 K/uL (0.00-0.30); Immature Granulocytes Pct Auto 0.0 %; Mean Corpuscular HGB Conc 33 gm/dL (32-36); Mean Corpuscular Hemoglobin 31 pg (26-34); Mean Corpuscular Volume 94 fL (80-100); RDW Coefficient of Variation % 14.5 % (11.5-15.5); Red Blood Count* 4.07 m/uL (4.30-5.90); White Blood Count* 3.73 K/uL (4.50-11.00)
[2024-12-27 16:21] LABS: Lymphocytes Absolute Auto 0.90 K/uL (0.90-2.90)
[2024-12-27 16:22] LABS: Slide Review Reflex No
[2024-12-27 16:30] LABS: Albumin* 4.2 g/dL (3.3-5.0); Chloride* 102 mmol/L (96-114); Sodium* 137 mmol/L (135-149)
[2024-12-27 16:31] LABS: Potassium* 3.9 mmol/L (3.6-5.1)
[2024-12-27 16:33] LABS: Alanine Aminotransferase* 21 U/L (4-50); Alkaline Phosphatase* 109 U/L (40-150); Anion Gap 8 mEq/L (7-15); Aspartate Amino Transferase* 29 U/L (12-35); Bilirubin Total* 1.0 mg/dL (0.1-1.5); Blood Urea Nitrogen* 21 mg/dL (7-30); Carbon Dioxide* 27 mmol/L (20-32); Creatinine* 1.0 mg/dL (0.5-1.5); Est. Creatinine Clearance* 72.53; Estimated Glomerular Filt Rate 86 ml/min; Total Protein* 8.1 g/dL (6.0-8.3)
[2024-12-27 16:34] LABS: Calcium* 9.4 mg/dL (8.4-10.6); Glucose* 99 mg/dL (60-115)
[2024-12-27 17:42] VITALS: BP 131/80; PULSE 68; RESP 18; TEMP 37.1; O2SAT 95
== END 2024-12-27 19:15 | disposition short-term general hospital (02) ==
PROVIDERS: Emergency Provider Family Medicine; PCP Family Medicine
DX: R53.1 Weakness (principal); C71.9 Malignant neoplasm of brain, unspecified; G93.6 Cerebral edema
CPT/HCPCS: 36415; 70450; 70553; 80053; 85025; 86140; 96374; 96376; 99285; 99291; A9575; J1100

== ENCOUNTER 2024-12-27 19:05 | Outpatient (CLI) | payer BC, SELFPAY | END 2024-12-27 19:06 | disposition home or self-care (01) | LOC: AMB 12-30 15:23 | PROVIDERS: PCP Family Medicine; Visit Provider Family Medicine | DX: G93.6 Cerebral edema (principal); R53.1 Weakness; C79.31 Secondary malignant neoplasm of brain | CPT/HCPCS: A0425; A0427 ==